=== PATIENT | female | born 1955 | race Caucasian/White ===

== ENCOUNTER 2016-10-27 13:55 | Emergency (ER) | payer MEDICARE, MEDICAID ==
[2016-10-27 14:16] VITALS: BP 132/59
--- NOTE | 2016-10-27 14:41 | EDM.PDOC ---
ED HPI GENERAL MEDICAL PROBLEM - General Chief Complaint: ENT Problem Stated Complaint: TROUBLE SWALLOWING Time Seen by Provider: 10/27/16 14:25 Source of Information: Reports: Patient History Limitations: Reports: No Limitations - History of Present Illness INITIAL COMMENTS - FREE TEXT/NARRATIVE: Patient is a 61-year-old female who presents to ED complaining of swallowing issues. Patient states over the past month she's been having increasing difficulty with swallowing air and fluids. Patient was evaluated in the walk in clinic this past Sunday with appointment scheduled to see PCP the following day. Patient missed this appointment and it was rescheduled for this coming Sunday. They are to discuss scheduling EGD to further delineate cause of difficulty swallowing. Patient does have a history of acid reflux and smoking. Patient takes Prilosec for the acid reflux and denies any increase in symptoms. Patient states while residing in [place] approximately one year ago she was being evaluated for similar complaint. They were planning on having the EGD completed but patient moved to [place] to reside with her daughter. With moving to [place] she has been seeing a pain specialist for cervical and lumbar stenosis. Patient is concerned that the difficulty swallowing may be associated to the cervical stenosis. Daughter states symptoms come on while patient is lying in bed in the room by herself. Patient works herself up by thinking of potential causes. Symptoms quickly resolved with sitting or lying down and speaking with her daughter. Patient has a history of anxiety/ depression and mild/moderate Alzheimer's disease. She takes for valium occasionally for anxiety symptoms. Patient denies any chest pain, shortness of breath, vomiting, nausea, abdominal pain, fever/chills, or any additional contributing symptoms. - Related Data Allergies Allergy/AdvReac Type Severity Reaction Status Date / Time Penicillins Allergy Severe Anaphylactic Verified 10/27/16 14:17 Shock codeine Allergy Itching Verified 10/27/16 14:17 Past Medical History HEENT History: Reports: Other (See Below) Other HEENT History: allergic rhinitis Respiratory History: Reports: COPD, Other (See Below) Other Respiratory History: abnormal chest x-ray Neurological History: Reports: Alzheimers Disease Psychiatric History: Reports: Anxiety, Depression Social & Family History - Tobacco Use Smoking Status *Q: Current Every Day Smoker Years of Tobacco use: 40 Packs/Tins Daily: 0.3 - Caffeine Use Caffeine Use: Reports: Coffee - Recreational Drug Use Recreational Drug Use: No ED ROS ENT - Review of Systems Review Of Systems: See Below Constitutional: Denies: Fever, Chills, Decreased Appetite HEENT: Reports: Other (diffuculty swallowing). Denies: Throat Pain, Throat Swelling Respiratory: Denies: Shortness of Breath, Wheezing, Cough, Sputum, Hemoptysis Cardiovascular: Denies: Chest Pain, Palpitations GI/Abdominal: Denies: Abdominal Pain, Decreased Appetite, Hematemesis, Nausea, Vomiting Musculoskeletal: Reports: Neck Pain Neurological: Reports: No Symptoms ED EXAM, ENT - Physical Exam Exam: See Below Exam Limited By: No Limitations General Appearance: Alert, WD/WN, No Apparent Distress Ears: Hearing Grossly Normal Nose: Normal Inspection Mouth/Throat: Normal Inspection, Normal Oropharynx, Other (mildly dry mouth) Neck: Normal Inspection, Supple, Non-Tender, Full Range of Motion. No: Lymphadenopathy (L), Lymphadenopathy (R) Respiratory/Chest: No Respiratory Distress, Lungs Clear, Normal Breath Sounds, No Accessory Muscle Use Cardiovascular: Normal Peripheral Pulses, Regular Rate, Rhythm GI/Abdominal: Normal Bowel Sounds, Soft, Non-Tender Neurological: Alert, Oriented, CN II-XII Intact, Normal Cognition, No Motor/ Sensory Deficits Psychiatric: Normal Affect, Normal Mood Skin: Warm, Dry, Intact, Normal Color Course - Vital Signs Last Recorded V/S: Last Vital Signs Temp 98.7 F 10/27/16 14:10 Pulse 72 10/27/16 14:10 Resp 18 10/27/16 14:10 BP 132/59 L 10/27/16 14:10 Pulse Ox 93 L 10/27/16 14:10 - Re-Assessments/Exams Free Text/Narrative Re-Assessment/Exam: Suspect cause of these symptoms are associated with dry mouth and anxiety/ depression. Symptoms worsen once patient is by herself in a dark room with deciphering potential etiology. Symptoms quickly resolve when she speaks with daughter and relaxes. Suggest further evaluation for EGD with history of acid reflux and smoking. Patient and daughter are aware of this and agreed with plan to followup with PCP this coming Sunday to schedule EGD. Patient is drinking water while in the ED and has been able to swallow with no difficulties. Vital signs are stable. patient is not anxious. Patient discharged home with instructions as documented. Departure - Departure Time of Disposition: 14:50 Disposition: Home, Self-Care 01 Condition: good Clinical Impression: Anxiety Alzheimer's dementia Qualifiers: Alzheimer's disease onset: early-onset Dementia behavioral disturbance: without behavioral disturbance Qualified Code(s): G30.0 - Alzheimer's disease with early onset Difficulty in swallowing Qualifiers: Dysphagia type: unspecified Qualified Code(s): R13.10 - Dysphagia, unspecified - Discharge Information Referrals: Misty Cardona DO [Primary Care Provider] - Forms: ED Department Discharge Additional Instructions: As discussed suspect cause of sensation of having difficulty swallowing is related to anxiety and working yourself up. Continue taking all home medications as prescribed. You have a history of acid reflux and smoking. EGD is suggested to determine if there are any physical finding contributing to your difficulty swallowing. In addition your mouth was dry upon examination. Suggest sipping on water regularly throughout the day to keep oral mucosa moist. This will help with swallowing food. keep your appointment with PCP for this coming Sunday to schedule EGD to further delineate etiology. Return back to the ED for any new or worsening symptoms.
== END 2016-10-27 15:07 | disposition home or self-care (01) ==
LOC: JD.ED 13:55
DX: R13.10 Dysphagia, unspecified (principal); G30.0 Alzheimer's disease with early onset; F41.9 Anxiety disorder, unspecified; F17.210 Nicotine dependence, cigarettes, uncomplicated; Z88.5 Allergy status to narcotic agent; Z88.0 Allergy status to penicillin
CPT/HCPCS: 99283; 99284

== ENCOUNTER 2018-03-19 18:00 | Emergency (ER) | payer MEDICARE, MEDICAID ==
[2018-03-19 18:06] VITALS: BP 151/66
--- NOTE | 2018-03-19 18:39 | EDM.PDOC ---
<Svitlana Howard A - Last Filed: 03/19/18 22:37> ED HPI GENERAL MEDICAL PROBLEM - General Chief Complaint: General Stated Complaint: [facility] Time Seen by Provider: 03/19/18 18:11 - Related Data Allergies Allergy/AdvReac Type Severity Reaction Status Date / Time Penicillins Allergy Severe Anaphylactic Verified 10/27/16 14:17 Shock codeine Allergy Itching Verified 10/27/16 14:17 Home Meds: Home Meds Albuterol [Ventolin HFA] 2 puff INH Q4HR 03/19/18 [History] Divalproex Sodium [Depakote] 2 tab PO ASDIRECTED 03/19/18 [History] Fluticasone/Salmeterol [Advair 100-50] 1 puff PO BID 03/19/18 [History] Gabapentin [Neurontin] 1 tab PO TID 03/19/18 [History] Lactulose 30 ml PO TIDPC 03/19/18 [History] Lisinopril 1 tab PO DAILY 03/19/18 [History] Lubiprostone [Amitiza] 1 cap PO BIDMEALS 03/19/18 [History] Lurasidone HCl [Latuda] 0.5 tab PO DAILY 03/19/18 [History] Memantine [Namenda] 1 tab PO BID 03/19/18 [History] Mirtazapine [Remeron] 1 tab PO BEDTIME PRN 03/19/18 [History] Morphine [MS Contin] 1 tab PO BID 03/19/18 [History] Omeprazole 2 tab PO BID 03/19/18 [History] Oxybutynin 1 tab PO TID 03/19/18 [History] Oxymorphone HCl [Oxymorphone] 1 tab PO BID 03/19/18 [History] Sennosides/Docusate Sodium [Senna-S] 2 tab PO BEDTIME 03/19/18 [History] Sucralfate 1 tab PO BID 03/19/18 [History] Temazepam 1 cap PO BEDTIME PRN 03/19/18 [History] buPROPion [buPROPion XL] 1 tab PO BID 03/19/18 [History] hydrOXYzine HCl [hydrOXYzine] 1 tab PO QID PRN 03/19/18 [History] risperiDONE [Risperdal] 1 tab PO BID 03/19/18 [History] tiZANidine [Zanaflex] 1 tab PO TID 03/19/18 [History] Course - Vital Signs Last Recorded V/S: Last Vital Signs Temp 36.2 C 03/19/18 18:03 Pulse 82 03/19/18 18:03 Resp 16 03/19/18 18:03 BP 151/66 H 03/19/18 18:03 Pulse Ox 89 L 03/19/18 18:03 - Orders/Labs/Meds Labs: Laboratory Tests 03/19/18 03/19/18 03/19/18 Range/Units 18:55 19:08 19:08 WBC 10.94 H (3.98-10.04) K/mm3 RBC 4.90 (3.98-5.22) M/mm3 Hgb 14.3 (11.2-15.7) gm/L Hct 41.9 (34.1-44.9) % MCV 85.5 (79.4-94.8) fl MCH 29.2 (25.6-32.2) pg MCHC 34.1 (32.2-35.5) g/dl RDW Std Deviation 39.1 (36.4-46.3) fL Plt Count 182 (182-369) K/mm3 MPV 9.4 (9.4-12.3) fl Neutrophils % (Manual) 80 H (40-60) % Band Neutrophils % 0 (0-10) % Lymphocytes % (Manual) 19 L (20-40) % Atypical Lymphs % 0 % Monocytes % (Manual) 1 L (2-10) % Eosinophils % (Manual) 0 L (0.7-5.8) % Basophils % (Manual) 0 L (0.1-1.2) Toxic Granulation Moderate Platelet Estimate Adequate Plt Morphology Comment Normal RBC Morph Comment Normal D-Dimer, Quantitative 0.88 H (0.19-0.50) mg/L Puncture Site Rt radial ABG pH 7.43 (7.35-7.45) ABG pCO2 47.8 H (35.0-45.0) mmHg ABG pO2 63.0 L (80.0-100.0) mmHg ABG HCO3 31.3 H (22.0-26.0) meq/L ABG O2 Saturation 88.6 L (96.0-97.0) % ABG Base Excess 6.3 H (-2-2.0) Martinez Test Positive A-a Gradient 11 mmHg O2 Delivery Device Room air FiO2 21.00 (21.00-100.00) % Sodium (136-145) mEq/L Potassium (3.5-5.1) mEq/L Chloride (98-107) mEq/L Carbon Dioxide (21-32) mEq/L Anion Gap (5-15) BUN (7-18) mg/dL Creatinine (0.55-1.02) mg/dL Est Cr Clr Drug Dosing mL/min Estimated GFR (MDRD) (>60) mL/min BUN/Creatinine Ratio (14-18) Glucose (80-115) mg/dL Lactic Acid (0.4-2.0) mmol/L Calcium (8.5-10.1) mg/dL Total Bilirubin (0.2-1.0) mg/dL AST (15-37) U/L ALT (14-59) U/L Alkaline Phosphatase (46-116) U/L Troponin I (0.00-0.056) ng/mL Total Protein (6.4-8.2) g/dl Albumin (3.4-5.0) g/dl Globulin gm/dL Albumin/Globulin Ratio (1-2) 03/19/18 03/19/18 Range/Units 19:08 19:08 WBC (3.98-10.04) K/mm3 RBC (3.98-5.22) M/mm3 Hgb (11.2-15.7) gm/L Hct (34.1-44.9) % MCV (79.4-94.8) fl MCH (25.6-32.2) pg MCHC (32.2-35.5) g/dl RDW Std Deviation (36.4-46.3) fL Plt Count (182-369) K/mm3 MPV (9.4-12.3) fl Neutrophils % (Manual) (40-60) % Band Neutrophils % (0-10) % Lymphocytes % (Manual) (20-40) % Atypical Lymphs % % Monocytes % (Manual) (2-10) % Eosinophils % (Manual) (0.7-5.8) % Basophils % (Manual) (0.1-1.2) Toxic Granulation Platelet Estimate Plt Morphology Comment RBC Morph Comment D-Dimer, Quantitative (0.19-0.50) mg/L Puncture Site ABG pH (7.35-7.45) ABG pCO2 (35.0-45.0) mmHg ABG pO2 (80.0-100.0) mmHg ABG HCO3 (22.0-26.0) meq/L ABG O2 Saturation (96.0-97.0) % ABG Base Excess (-2-2.0) Martinez Test A-a Gradient mmHg O2 Delivery Device FiO2 (21.00-100.00) % Sodium 129 L (136-145) mEq/L Potassium 3.9 (3.5-5.1) mEq/L Chloride 92 L (98-107) mEq/L Carbon Dioxide 31 (21-32) mEq/L Anion Gap 9.9 (5-15) BUN 9 (7-18) mg/dL Creatinine 0.7 (0.55-1.02) mg/dL Est Cr Clr Drug Dosing 74.02 mL/min Estimated GFR (MDRD) > 60 (>60) mL/min BUN/Creatinine Ratio 12.9 L (14-18) Glucose 115 (80-115) mg/dL Lactic Acid 0.8 (0.4-2.0) mmol/L Calcium 9.1 (8.5-10.1) mg/dL Total Bilirubin 0.2 (0.2-1.0) mg/dL AST 22 (15-37) U/L ALT 21 (14-59) U/L Alkaline Phosphatase 103 (46-116) U/L Troponin I < 0.017 (0.00-0.056) ng/mL Total Protein 7.3 (6.4-8.2) g/dl Albumin 3.2 L (3.4-5.0) g/dl Globulin 4.1 gm/dL Albumin/Globulin Ratio 0.8 L (1-2) Meds: Medications Discontinued Medications Generic Name Dose Route Start Last Admin Trade Name Freq PRN Reason Stop Dose Admin Sodium Chloride 250 mls @ 75 mls/hr 03/19/18 20:30 03/19/18 20:44 Normal Saline IV 75 mls/hr ASDIRECTED MEE Administration Iopamidol 100 ml 03/19/18 20:22 03/19/18 20:44 Isovue-370 (76%) IVPUSH 03/19/18 20:23 100 ml ONETIME ONE Administration Ondansetron HCl 4 mg 03/19/18 18:43 03/19/18 18:51 Zofran IVPUSH 03/19/18 18:44 4 mg ONETIME ONE Administration - Re-Assessments/Exams Free Text/Narrative Re-Assessment/Exam: 03/19/18 21:45 EKg shows no sign of acute arrhythmia or ischemia. CT chest shows stable pulmonary nodules, unchanged linear pleural-based opacities, no PE. She has been stable throughout her 3+ hour ED stay with no evidence of arrhythmia on the monitor. Her labs are unremarkable. She would like to go home. Will dc, discussed return precautions. Departure - Departure Time of Disposition: 21:43 Disposition: Home, Self-Care 01 Clinical Impression: Palpitations - Discharge Information Instructions: Palpitations, [id number] Referrals: PCP,None [Primary Care Provider] - Forms: ED Department Discharge Additional Instructions: 1. Your testing in the Emergency Department including labs, EKG, and chest CT scan all looked good 2. Follow up with your primary doctor as soon as possible 3. Return to the ED as needed for any concerning symptoms, such as difficulty breathing, severe pain, or other concerning symptoms. <Quique Price - Last Filed: 03/22/18 07:41> ED HPI GENERAL MEDICAL PROBLEM - General Source of Information: Reports: Patient, RN Notes Reviewed History Limitations: Reports: No Limitations - History of Present Illness INITIAL COMMENTS - FREE TEXT/NARRATIVE: The patient states that she developed palpitations - the sensation that her heart was speeding up and slowing down, not skipping or extra beats, around 16: 30 this afternoon. She had associated nausea, but denies feeling dyspneic. She states that she took her oxymorphone, but it didn't help. She called her daughter, who told her that she was likely having a panic attack. The patient called EMS anyway. The patient states that she has a history of palpitations, and they have been evaluated with such modalities as a Holter monitor, but no diagnosis was made. The patient denies feeling palpitations here in the ED, and the ECG obtained by EMS does not show any irregularity, either. The patient has a history of COPD, but denies recent wheezing. No recent fever or cough. No recent urinary symptoms. The patient's PCP is Dr. Jacinda Ozuna. The patient states that she saw Dr. Ozuna today. Neck Pain Score (Numeric/FACES): 7 Past Medical History HEENT History: Reports: Allergic Rhinitis Cardiovascular History: Reports: Hypertension Respiratory History: Reports: COPD Gastrointestinal History: Reports: GERD Genitourinary History: Reports: Urinary 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 (stress incontinence) Musculoskeletal History: Reports: Other (See Below) (Cervical and lumbar stenosis) Neurological History: Reports: Alzheimers Disease, Neuropathy, Peripheral Psychiatric History: Reports: Anxiety, Bipolar, Depression Endocrine/Metabolic History: Reports: Obesity/BMI 30+ - Infectious Disease History Infectious Disease History: Reports: Chicken Pox - Past Surgical History HEENT Surgical History: Reports: Oral Surgery (wisdom teeth extraction) Musculoskeletal Surgical History: Reports: ORIF (Left ankle), Shoulder Surgery ( right, arthroscopic) Social & Family History - Family History Family Medical History: Noncontributory - Tobacco Use Smoking Status *Q: Former Smoker Years of Tobacco use: 33 Packs/Tins Daily: 1 Month/Year Tobacco Last Used: Quit Mar 05, 2018 - Caffeine Use Caffeine Use: Reports: Coffee - Alcohol Use Alcohol Use History: No - Recreational Drug Use Recreational Drug Use: No - Living Situation & Occupation Living situation: Reports: , Alone Occupation: Disabled ED ROS GENERAL - Review of Systems Review Of Systems: ROS reveals no pertinent complaints other than HPI. ED EXAM, GENERAL - Physical Exam Exam: See Below Exam Limited By: No Limitations General Appearance: Alert, WD/WN, Anxious Eye Exam: Bilateral Eye: EOMI, Normal Inspection Ears: Normal External Exam, Hearing Grossly Normal Nose: Normal Inspection Throat/Mouth: Normal Inspection, Normal Lips, Normal Voice, No Airway Compromise Head: Atraumatic, Normocephalic Neck: Normal Inspection, Full Range of Motion Respiratory/Chest: No Respiratory Distress, No Accessory Muscle Use, Decreased Breath Sounds. No: Crackles, Rhonchi, Wheezing, Prolonged Expiration Cardiovascular: Normal Peripheral Pulses, Regular Rate, Rhythm, No Gallop, No JVD, No Murmur, No Rub Peripheral Pulses: 4+: Radial (L), Radial (R) GI/Abdominal: Normal Bowel Sounds, Soft, Non-Tender, No Organomegaly, No Distention, No Abnormal Bruit, No Mass, Other (Obese) (Female) Exam: Deferred Rectal (Female) Exam: Deferred Extremities: Normal Inspection, Normal Range of Motion, Normal Capillary Refill , Other (2-3+ pittting pretibial edema bilaterally) Neurological: Alert, Oriented, No Motor/Sensory Deficits, Memory Loss Recent Events (mild, but able to probide a good history) Psychiatric: Anxious (VERY) Skin Exam: Warm, Dry, Intact, Normal Color, No Rash EKG INTERPRETATION EKG Date: 03/19/18 Time: 18:07 Rhythm: NSR Rate (Beats/Min): 81 [place]: Normal P-Wave: Enlarged (LAE) QRS: Normal ST-T: Normal QT: Normal Comparison: NA - No Prior EKG Course - Orders/Labs/Meds Labs: Laboratory Tests 03/19/18 03/19/18 03/19/18 Range/Units 18:55 19:08 19:08 WBC 10.94 H (3.98-10.04) K/mm3 RBC 4.90 (3.98-5.22) M/mm3 Hgb 14.3 (11.2-15.7) gm/L Hct 41.9 (34.1-44.9) % MCV 85.5 (79.4-94.8) fl MCH 29.2 (25.6-32.2) pg MCHC 34.1 (32.2-35.5) g/dl RDW Std Deviation 39.1 (36.4-46.3) fL Plt Count 182 (182-369) K/mm3 MPV 9.4 (9.4-12.3) fl Neutrophils % (Manual) 80 H (40-60) % Band Neutrophils % 0 (0-10) % Lymphocytes % (Manual) 19 L (20-40) % Atypical Lymphs % 0 % Monocytes % (Manual) 1 L (2-10) % Eosinophils % (Manual) 0 L (0.7-5.8) % Basophils % (Manual) 0 L (0.1-1.2) Toxic Granulation Moderate Platelet Estimate Adequate Plt Morphology Comment Normal RBC Morph Comment Normal D-Dimer, Quantitative 0.88 H (0.19-0.50) mg/L Puncture Site Rt radial ABG pH 7.43 (7.35-7.45) ABG pCO2 47.8 H (35.0-45.0) mmHg ABG pO2 63.0 L (80.0-100.0) mmHg ABG HCO3 31.3 H (22.0-26.0) meq/L ABG O2 Saturation 88.6 L (96.0-97.0) % ABG Base Excess 6.3 H (-2-2.0) Martinez Test Positive A-a Gradient 11 mmHg O2 Delivery Device Room air FiO2 21.00 (21.00-100.00) % Sodium (136-145) mEq/L Potassium (3.5-5.1) mEq/L Chloride (98-107) mEq/L Carbon Dioxide (21-32) mEq/L Anion Gap (5-15) BUN (7-18) mg/dL Creatinine (0.55-1.02) mg/dL Est Cr Clr Drug Dosing mL/min Estimated GFR (MDRD) (>60) mL/min BUN/Creatinine Ratio (14-18) Glucose (80-115) mg/dL Lactic Acid (0.4-2.0) mmol/L Calcium (8.5-10.1) mg/dL Total Bilirubin (0.2-1.0) mg/dL AST (15-37) U/L ALT (14-59) U/L Alkaline Phosphatase (46-116) U/L Troponin I (0.00-0.056) ng/mL Total Protein (6.4-8.2) g/dl Albumin (3.4-5.0) g/dl Globulin gm/dL Albumin/Globulin Ratio (1-2) 03/19/18 03/19/18 Range/Units 19:08 19:08 WBC (3.98-10.04) K/mm3 RBC (3.98-5.22) M/mm3 Hgb (11.2-15.7) gm/L Hct (34.1-44.9) % MCV (79.4-94.8) fl MCH (25.6-32.2) pg MCHC (32.2-35.5) g/dl RDW Std Deviation (36.4-46.3) fL Plt Count (182-369) K/mm3 MPV (9.4-12.3) fl Neutrophils % (Manual) (40-60) % Band Neutrophils % (0-10) % Lymphocytes % (Manual) (20-40) % Atypical Lymphs % % Monocytes % (Manual) (2-10) % Eosinophils % (Manual) (0.7-5.8) % Basophils % (Manual) (0.1-1.2) Toxic Granulation Platelet Estimate Plt Morphology Comment RBC Morph Comment D-Dimer, Quantitative (0.19-0.50) mg/L Puncture Site ABG pH (7.35-7.45) ABG pCO2 (35.0-45.0) mmHg ABG pO2 (80.0-100.0) mmHg ABG HCO3 (22.0-26.0) meq/L ABG O2 Saturation (96.0-97.0) % ABG Base Excess (-2-2.0) Martinez Test A-a Gradient mmHg O2 Delivery Device FiO2 (21.00-100.00) % Sodium 129 L (136-145) mEq/L Potassium 3.9 (3.5-5.1) mEq/L Chloride 92 L (98-107) mEq/L Carbon Dioxide 31 (21-32) mEq/L Anion Gap 9.9 (5-15) BUN 9 (7-18) mg/dL Creatinine 0.7 (0.55-1.02) mg/dL Est Cr Clr Drug Dosing 74.02 mL/min Estimated GFR (MDRD) > 60 (>60) mL/min BUN/Creatinine Ratio 12.9 L (14-18) Glucose 115 (80-115) mg/dL Lactic Acid 0.8 (0.4-2.0) mmol/L Calcium 9.1 (8.5-10.1) mg/dL Total Bilirubin 0.2 (0.2-1.0) mg/dL AST 22 (15-37) U/L ALT 21 (14-59) U/L Alkaline Phosphatase 103 (46-116) U/L Troponin I < 0.017 (0.00-0.056) ng/mL Total Protein 7.3 (6.4-8.2) g/dl Albumin 3.2 L (3.4-5.0) g/dl Globulin 4.1 gm/dL Albumin/Globulin Ratio 0.8 L (1-2) Meds: Medications Discontinued Medications Generic Name Dose Route Start Last Admin Trade Name Freq PRN Reason Stop Dose Admin Sodium Chloride 250 mls @ 75 mls/hr 03/19/18 20:30 03/19/18 20:44 Normal Saline IV 75 mls/hr ASDIRECTED MEE Administration Iopamidol 100 ml 03/19/18 20:22 03/19/18 20:44 Isovue-370 (76%) IVPUSH 03/19/18 20:23 100 ml ONETIME ONE Administration Ondansetron HCl 4 mg 03/19/18 18:43 03/19/18 18:51 Zofran IVPUSH 03/19/18 18:44 4 mg ONETIME ONE Administration - Re-Assessments/Exams Free Text/Narrative Re-Assessment/Exam: 03/19/18 18:37 The patient was likely suffering from an anxiety attack related to her chronic pain, however, here in the ED her SpO2 is 89% on room air. This is likely related to her COPD, however, the patient is not ordinarily on supplemental oxygen. I would like to make sure that there is no significant other problem contributing to the patient's palpitations, such as a PE. I have ordered blood work, that includes 2 sets of blood cultures and an ABG, along with a chest x- ray. 03/19/18 19:[address] Svitlana Howard, and care of the patient turned over to her at this time, for change of shift.
[2018-03-19] MEDS ORDERED: Ondansetron 4 MG/2 ML SDV IVPUSH ONE (18:43)
[2018-03-19] MEDS ORDERED: Iopamidol 755 Mg/ML 100 ML Bottle IVPUSH ONE (20:22)
[2018-03-19] MEDS ORDERED: Sodium Chloride 0.9% 250 ML IV SCH (20:30)
--- NOTE | 2018-03-20 07:45 | CT ---
CT chest Technique: Multiple axial sections through the chest were obtained. Intravenous contrast was utilized. Study has been performed as a pulmonary angiogram protocol. Comparison: Prior chest CT exam of 04/12/16. Findings: Pulmonary arteries are moderately well-opacified. No filling defects are seen to indicate pulmonary embolism. Small portion of the upper abdominal structures appear within normal limits. Mediastinum and hilar regions show no adenopathy or mass. No axillary adenopathy is seen. Thick linear densities which are pleural-based seen within the right upper and right middle lobe. These findings appear to represent scarring and appear stable from prior exam. Several scattered pulmonary nodules are noted which are felt to be stable. Small air bleb is noted within the left upper chest. No acute parenchymal change is seen. Bone window settings were reviewed which show diffuse degenerative change within the spine. No acute osseous abnormality is identified. Impression: 1. No findings of pulmonary embolism. 2. Other stable findings as noted above. Nothing acute is appreciated on CT study of the chest. Diagnostic code #2 I agree with preliminary report issued by [facility] ([facility] report finalized on 03/19/18, 10:39 PM Central Time)
--- NOTE | 2018-03-20 07:46 | CR ---
Chest: Two views of the chest were obtained. Comparison: Prior chest x-ray of 04/12/16. Chronic change is noted within the right lung base. No acute parenchymal change is seen. Heart size and mediastinum are normal. Bony structures appear within normal limits for the patient's age. Diaphragms are flattened on the lateral view compatible with emphysematous change. Impression: 1. Emphysematous change. 2. Chronic change within the right lung base. Nothing acute is appreciated. Diagnostic code #2
== END 2018-03-19 22:15 | disposition home or self-care (01) ==
LOC: JD.ED 18:00
DX: R00.2 Palpitations (principal); I10 Essential (primary) hypertension; J44.9 Chronic obstructive pulmonary disease, unspecified; K21.9 Gastro-esophageal reflux disease without esophagitis; Z87.891 Personal history of nicotine dependence; Z88.0 Allergy status to penicillin; Z88.5 Allergy status to narcotic agent; Z79.899 Other long term (current) drug therapy
CPT/HCPCS: 36415; 36600; 71046; 71275; 80053; 82803; 83605; 84484; 85007; 85027; 85379; 87040; 93005; 96374; 99285; J2405; J7050; Q9967

== ENCOUNTER 2018-07-20 19:07 | Emergency (ER) | payer MEDICARE, MEDICAID ==
[2018-07-20 19:15] VITALS: BP 179/76
[2018-07-20] MEDS ORDERED: Alum Hydrox/Mag Hydrox/Simeth 30 ML, Lidocaine 2% 15 ML PO ONE ×2 (19:59)
[2018-07-20] MEDS ORDERED: Sodium Chloride 0.9% 10 ML Syringe FLUSH PRN (19:59)
[2018-07-20] MEDS ORDERED: Pantoprazole 40 MG Vial IVPUSH ONE (19:59)
[2018-07-20] MEDS ORDERED: LORazepam 2 MG/ML SDV IVPUSH ONE (19:59)
--- NOTE | 2018-07-20 20:03 | EDM.PDOC ---
ED HPI GENERAL MEDICAL PROBLEM - General Chief Complaint: Gastrointestinal Problem Stated Complaint: [facility] Time Seen by Provider: 07/20/18 19:41 Source of Information: Reports: Patient History Limitations: Reports: No Limitations - History of Present Illness INITIAL COMMENTS - FREE TEXT/NARRATIVE: Patient is a 62-year-old female who presents ED complaining of left-sided abdominal pain for approximately one week. Patient is quite anxious and tearful during examination. States has a recent she's had some nausea and vomiting for the past 3 days. With eating she comes full early and becomes nauseated. She admits she has a history of constipation secondary to the chronic opiates. Currently taking. She takes lactulose every third day. She does not have a bowel movement for 3 days. Pain to the left upper quadrant/left side of the abdomen is sharp, constant, waxes and wanes with intensity, to also described as a crampy sensation. She states every time she eats she becomes full quickly and mildly nauseated. She has a history of acid reflux with no worsening symptoms as noted and is taking Protonix currently. Patient currently denies any fever, cough, chest pain, diarrhea, bloody stool, dark tarry stool, dysuria , hematuria, or any additional complaints. She does have a history of anxiety in the past been on multiple medications that had to be discontinued secondary to chronic opioid use. Currently her pains are rated a 5 out of 10. Patient is on pain meds for chronic neuropathy. She carries a history of hypertension, COPD , GERD, urinary incontinence, spinal canal stenosis, Alzheimer's, bipolar, anxiety, and depression. Left Upper Abdomen Pain Score (Numeric/FACES): 6 - Related Data Allergies Allergy/AdvReac Type Severity Reaction Status Date / Time Penicillins Allergy Severe Anaphylactic Verified 07/20/18 19:15 Shock codeine Allergy Itching Verified 07/20/18 19:15 Home Meds: Home Meds Albuterol [Ventolin HFA] 2 puff INH Q4HR 03/19/18 [History] Divalproex Sodium [Depakote] 2 tab PO ASDIRECTED 03/19/18 [History] Fluticasone/Salmeterol [Advair 100-50] 1 puff PO BID 03/19/18 [History] Gabapentin [Neurontin] 1 tab PO TID 03/19/18 [History] Lactulose 30 ml PO TIDPC 03/19/18 [History] Lisinopril 1 tab PO DAILY 03/19/18 [History] Lubiprostone [Amitiza] 1 cap PO BIDMEALS 03/19/18 [History] Lurasidone HCl [Latuda] 0.5 tab PO DAILY 03/19/18 [History] Memantine [Namenda] 1 tab PO BID 03/19/18 [History] Mirtazapine [Remeron] 1 tab PO BEDTIME PRN 03/19/18 [History] Morphine [MS Contin] 1 tab PO BID 03/19/18 [History] Oxymorphone HCl [Oxymorphone] 1 tab PO BID 03/19/18 [History] Sennosides/Docusate Sodium [Senna-S] 2 tab PO BEDTIME 03/19/18 [History] Sucralfate 1 tab PO BID 03/19/18 [History] Temazepam 1 cap PO BEDTIME PRN 03/19/18 [History] buPROPion [buPROPion XL] 1 tab PO DAILY 03/19/18 [History] hydrOXYzine HCl [hydrOXYzine] 1 tab PO QID PRN 03/19/18 [History] tiZANidine [Zanaflex] 1 tab PO TID 03/19/18 [History] Ondansetron [Zofran ODT] 4 mg PO Q6H PRN #12 tab.dis 07/20/18 [Rx] Pantoprazole [ProTONIX] 1 tab PO DAILY 07/20/18 [History] Rosuvastatin [Crestor] 1 tab PO BEDTIME 07/20/18 [History] Past Medical History HEENT History: Reports: Allergic Rhinitis Other HEENT History: allergic rhinitis Cardiovascular History: Reports: Hypertension Respiratory History: Reports: COPD Other Respiratory History: abnormal chest x-ray Gastrointestinal History: Reports: GERD Genitourinary History: Reports: Urinary 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 Musculoskeletal History: Reports: Other (See Below) Other Musculoskeletal History: spinal stenosis Neurological History: Reports: Alzheimers Disease, Neuropathy, Peripheral Psychiatric History: Reports: Anxiety, Bipolar, Depression Endocrine/Metabolic History: Reports: Obesity/BMI 30+ - Infectious Disease History Infectious Disease History: Reports: Chicken Pox - Past Surgical History HEENT Surgical History: Reports: Oral Surgery Musculoskeletal Surgical History: Reports: ORIF, Shoulder Surgery Social & Family History - Family History Family Medical History: Noncontributory - Tobacco Use Smoking Status *Q: Current Every Day Smoker Years of Tobacco use: 36 Packs/Tins Daily: 0.5 Used Tobacco, but Quit: No - Caffeine Use Caffeine Use: Reports: Coffee - Recreational Drug Use Recreational Drug Use: No - Living Situation & Occupation Living situation: Reports: , Alone Occupation: Disabled ED ROS GENERAL - Review of Systems Review Of Systems: ROS reveals no pertinent complaints other than HPI. ED EXAM, GI/ABD - Physical Exam Exam: See Below Exam Limited By: No Limitations General Appearance: Alert, WD/WN, Anxious, Mild Distress Eyes: Bilateral: Normal Appearance Ears: Hearing Grossly Normal Nose: Normal Inspection Throat/Mouth: Normal Voice, No Airway Compromise Head: Atraumatic, Normocephalic Neck: Normal Inspection, Supple Respiratory/Chest: No Respiratory Distress, Lungs Clear, Normal Breath Sounds, No Accessory Muscle Use, Chest Non-Tender Cardiovascular: Normal Peripheral Pulses, Regular Rate, Rhythm, No Murmur GI/Abdominal Exam: Soft, No Organomegaly, No Distention, Tender (epigastric region), Abnormal Bowel Sounds (hyperactive), Other (negative seo sign, negative mcburneys point. ) Back Exam: Normal Inspection. No: CVA Tenderness (L), CVA Tenderness (R) Extremities: Normal Inspection, Normal Range of Motion, Non-Tender, No Pedal Edema Neurological: Alert, Oriented, CN II-XII Intact, Normal Cognition Psychiatric: Anxious, Tearful Course - Vital Signs Last Recorded V/S: Last Vital Signs Temp 97 F 07/20/18 19:10 Pulse 94 07/20/18 19:10 Resp 20 07/20/18 19:10 BP 179/76 H 07/20/18 19:10 Pulse Ox 94 L 07/20/18 19:10 - Orders/Labs/Meds Labs: Laboratory Tests 07/20/18 07/20/18 07/20/18 Range/Units 19:35 20:17 20:17 WBC 11.11 H (3.98-10.04) K/mm3 RBC 5.62 H (3.98-5.22) M/mm3 Hgb 16.4 H (11.2-15.7) gm/L Hct 48.0 H (34.1-44.9) % MCV 85.4 (79.4-94.8) fl MCH 29.2 (25.6-32.2) pg MCHC 34.2 (32.2-35.5) g/dl RDW Std Deviation 42.0 (36.4-46.3) fL Plt Count 241 (182-369) K/mm3 MPV 9.8 (9.4-12.3) fl Neutrophils % (Manual) 64 H (40-60) % Band Neutrophils % 0 (0-10) % Lymphocytes % (Manual) 35 (20-40) % Atypical Lymphs % 0 % Monocytes % (Manual) 0 L (2-10) % Eosinophils % (Manual) 1 (0.7-5.8) % Basophils % (Manual) 0 L (0.1-1.2) Platelet Estimate Adequate Plt Morphology Comment Normal RBC Morph Comment Normal Sodium 132 L (136-145) mEq/L Potassium 4.2 (3.5-5.1) mEq/L Chloride 94 L (98-107) mEq/L Carbon Dioxide 33 H (21-32) mEq/L Anion Gap 9.2 (5-15) BUN 15 (7-18) mg/dL Creatinine 0.6 (0.55-1.02) mg/dL Est Cr Clr Drug Dosing 86.36 mL/min Estimated GFR (MDRD) > 60 (>60) mL/min BUN/Creatinine Ratio 25.0 H (14-18) Glucose 109 (80-115) mg/dL Calcium 9.6 (8.5-10.1) mg/dL Total Bilirubin 0.2 (0.2-1.0) mg/dL AST 14 L (15-37) U/L ALT 22 (14-59) U/L Alkaline Phosphatase 122 H (46-116) U/L C-Reactive Protein 0.2 (<1.0) mg/dL Total Protein 7.4 (6.4-8.2) g/dl Albumin 3.4 (3.4-5.0) g/dl Globulin 4.0 gm/dL Albumin/Globulin Ratio 0.9 L (1-2) Lipase 72 L (73-393) U/L Urine Color Light yellow (Yellow) Urine Appearance Clear (Clear) Urine pH 7.5 (5.0-8.0) Ur Specific [place] 1.020 (1.005-1.030) Urine Protein 1+ H (Negative) Urine Glucose (UA) Negative (Negative) Urine Ketones Negative (Negative) Urine Occult Blood Negative (Negative) Urine Nitrite Negative (Negative) Urine Bilirubin Negative (Negative) Urine Urobilinogen 0.2 (0.2-1.0) Ur Leukocyte Esterase Negative (Negative) Urine RBC Not seen (0-5) /hpf Urine WBC 0-5 (0-5) /hpf Ur Epithelial Cells 10-20 H (0-5) /hpf Urine Bacteria Few (FEW) /hpf Urine Mucus Not seen (FEW) /hpf Meds: Medications Discontinued Medications Generic Name Dose Route Start Last Admin Trade Name Freq PRN Reason Stop Dose Admin Al Hydroxide/Mg Hydroxide 30 0 ml 07/20/18 19:59 07/20/18 20:18 ml/ Lidocaine HCl 15 ml PO 07/20/18 20:00 45 ml ONETIME ONE Administration Lorazepam 0.5 mg 07/20/18 19:59 07/20/18 20:18 Ativan IVPUSH 07/20/18 20:00 0.5 mg ONETIME ONE Administration Pantoprazole Sodium 40 mg 07/20/18 19:59 07/20/18 20:18 Protonix Iv IVPUSH 07/20/18 20:00 40 mg ONETIME ONE Administration Sodium Chloride 10 ml 07/20/18 19:59 07/20/18 20:19 Saline Flush FLUSH 10 ml ASDIRECTED PRN Administration Keep Vein Open - Re-Assessments/Exams Free Text/Narrative Re-Assessment/Exam: IV established with ativan 0.5 mg IVP, protonix 40mg IVP, and GI cocktail PO. Initial labs and studies will include: CBC, C14, CRP, UA, abdomen 2 view, and lipase. Labs reviewed: White blood cell count 11.11, hemoglobin 16.4, platelets normal, sodium 132, potassium 4.2, AG and creatinine within normal limits. Lipase 72. UA negative. Reviewed x-ray of the abdomen two view. Increased stool with a few airfluid levels. Final interpretation is pending. On reexamination patient is resting more comfortably. She offers no complaints this time. I offered to obtain CT of the abdomen and pelvis to which she refuses. I suspect cause of intermittent pain to stomach is related to gastritis induced by stress. In addition generalized pain to the abdomen, early satiety, and nausea is attributed to history of constipation 2nd to narcotic use. Patient has refused the CT of the abdomen and pelvis. She will take her lactulose tomorrow as scheduled and followup with PCP Sunday. She has a ride home. Return precautions were discussed with the patient. Patient had no further questions or concerns. Patient agreed with plan. Departure - Departure Time of Disposition: 22:06 Disposition: Home, Self-Care 01 Condition: Good Clinical Impression: Abdominal pain of unknown etiology, Abdominal pain, Constipation Gastritis Qualifiers: Gastritis type: unspecified gastritis Chronicity: acute Gastritis bleeding: presence of bleeding unspecified Qualified Code(s): K29.00 - Acute gastritis without bleeding Constipation Qualifiers: Constipation type: drug induced constipation Qualified Code(s): K59.03 - Drug induced constipation - Discharge Information Prescriptions: Ondansetron [Zofran ODT] 4 mg PO Q6H PRN #12 tab.dis PRN Reason: Nausea/Vomiting Instructions: Gastritis, Adult, [id number], Constipation, Adult, [id number] , Abdominal Pain, Adult, [id number] Referrals: PCP,None [Primary Care Provider] - Forms: ED Department Discharge Additional Instructions: Suspect cause of discomfort is related to constipation secondary to pain medications currently on. In addition suspect you have gastritis with recent increased stress, anxiety, and excessive worrying. Thus continue taking the Protonix and lactulose as prescribed. For intermittent nausea take Zofran as prescribed. Push the fluids. Eat a bland meal. See your PCP first part of this week for reevaluation as needed. Suggest making a earlier appt with psych provider for medication modification. May return back to the ED if you develop any new or worsening symptoms. No driving today since receiving a sedative medication.
--- NOTE | 2018-07-21 18:27 | CR ---
Abdomen: Supine and upright views of the abdomen were obtained. Comparison: Previous abdominal preliminary film obtained during upper GI and small bowel follow-through study of 03/11/18. Scattered gas is noted within small bowel and colon which appears unremarkable. Slight pleural thickening is noted within the right lung base. No free air is seen. Calcifications within the pelvis are compatible with phleboliths and slight arterial calcification. Bony structures are unremarkable. Impression: 1. Incidental findings. Nothing acute is seen on two-view abdominal x-ray. Diagnostic code #2
== END 2018-07-20 22:21 | disposition home or self-care (01) ==
LOC: JD.ED 19:07
DX: K29.00 Acute gastritis without bleeding (principal); K59.03 Drug induced constipation; F17.210 Nicotine dependence, cigarettes, uncomplicated; I10 Essential (primary) hypertension; K21.9 Gastro-esophageal reflux disease without esophagitis; F31.9 Bipolar disorder, unspecified; F41.9 Anxiety disorder, unspecified; J44.9 Chronic obstructive pulmonary disease, unspecified; Z79.899 Other long term (current) drug therapy; Z88.0 Allergy status to penicillin; Z88.5 Allergy status to narcotic agent
CPT/HCPCS: 36415; 74019; 80053; 81001; 83690; 85007; 85027; 86140; 96374; 96375; 99284; A9270; C9113; J2060; 99283

== ENCOUNTER 2020-02-11 09:23 | Emergency (ER) | payer MEDICARE, MEDICAID ==
[2020-02-11 09:36] VITALS: BP 164/67; PULSE 70
[2020-02-11] MEDS ORDERED: Sodium Chloride 0.9% 10 ML Syringe FLUSH PRN ×2 (09:47→09:53)
[2020-02-11] MEDS ORDERED: Ondansetron 4 MG/2 ML SDV IVPUSH ONE (09:47)
[2020-02-11] MEDS ORDERED: HYDROmorphone 1 MG/ML Syringe IVPUSH ONE (09:48)
[2020-02-11] MEDS ORDERED: Iopamidol 612 MG/ML 100 ML Bottle IVPUSH ONE (09:53)
[2020-02-11] MEDS ORDERED: Diatrizoate Meglumine/Diatrizoate Sodium 37% 120 ML Bottle PO ONE (09:53)
[2020-02-11] MEDS ORDERED: Sodium Chloride 0.9% 1,000 ML IV SCH (10:00)
--- NOTE | 2020-02-11 11:54 | CT ---
CT abdomen CT abdomen and pelvis Technique: Multiple axial sections were obtained from above the dome of the diaphragm inferiorly through the pubic symphysis. Intravenous and oral contrast was utilized. Delayed images were obtained through the bladder. Findings: Slight pleural thickening is noted within the right lung base. Minimal parenchymal scarring is noted within the right lung base. Nothing acute is seen within the lung bases. Liver contains no focal parenchymal abnormality. Spleen appears within normal limits. Adrenal glands show no nodule. Pancreas shows no discrete abnormality. Gallbladder contains no calcified gallstones. Kidneys show symmetric contrast enhancement without hydronephrosis or mass. Aorta shows no aneurysm. Atherosclerotic calcification is seen within the aorta. No retroperitoneal adenopathy or mesenteric abnormalities are seen. No pelvic mass or adenopathy is seen. No free fluid or inflammatory change is appreciated. Delayed images shows contrast within both distal ureters as well as contrast within the bladder. Bone window were reviewed which shows mild degenerative change scattered within the spine. Very small fat-containing umbilical hernia is noted. Impression: 1. Findings as noted above. 2. Nothing acute is appreciated on CT study of the abdomen and pelvis. Diagnostic code #2 This report was dictated in MDT
--- NOTE | 2020-02-11 12:43 | EDM.PDOC ---
ED HPI GENERAL MEDICAL PROBLEM - General Chief Complaint: Abdominal Pain Stated Complaint: LEFT SIDE ABD PAIN Time Seen by Provider: 02/11/20 09:34 Source of Information: Reports: Patient History Limitations: Reports: No Limitations - History of Present Illness INITIAL COMMENTS - FREE TEXT/NARRATIVE: The patient presents with left lower abdominal pain. This started yesterday. She has a history of spinal stenosis and back and neck pain. She takes pain meds. She does have trouble with constipation at times. She took some lactulose and had some loose stools. That did not help with the pain. She has no fever, chills, cough, congestion, runny nose, or dysuria. She still has her gallbladder and appendix. Onset: Gradual Duration: Day(s): (2) Location: Reports: Abdomen Quality: Reports: Sharp Severity: Severe Improves with: Reports: None Worsens with: Reports: None Associated Symptoms: Reports: No Other Symptoms Left Lower Abdomen Pain Score (Numeric/FACES): 9 - Related Data Allergies Allergy/AdvReac Type Severity Reaction Status Date / Time Penicillins Allergy Severe Anaphylactic Verified 02/11/20 09:36 Shock codeine Allergy Itching Verified 02/11/20 09:36 Home Meds: Home Meds Albuterol [Ventolin HFA] 2 puff INH Q4HR 03/19/18 [History] Fluticasone/Salmeterol [Advair 100-50] 1 puff PO BID 03/19/18 [History] Gabapentin [Neurontin] 800 tab PO QID 03/19/18 [History] Lactulose 30 ml PO ASDIRECTED 03/19/18 [History] Lisinopril 1 tab PO DAILY 03/19/18 [History] Lubiprostone [Amitiza] 1 cap PO BIDMEALS 03/19/18 [History] Memantine [Namenda] 1 tab PO BID 03/19/18 [History] Mirtazapine [Remeron] 22.5 tab PO BEDTIME PRN 03/19/18 [History] Morphine [MS Contin] 1 tab PO BID 03/19/18 [History] Oxymorphone HCl [Oxymorphone] 30 mg PO BID 03/19/18 [History] Sennosides/Docusate Sodium [Senna-S] 2 tab PO BEDTIME 03/19/18 [History] Temazepam 1 cap PO BEDTIME PRN 03/19/18 [History] tiZANidine [Zanaflex] 1 tab PO TID 03/19/18 [History] Pantoprazole [ProTONIX] 1 tab PO DAILY 07/20/18 [History] Rosuvastatin [Crestor] 1 tab PO BEDTIME 07/20/18 [History] Calcium Carbonate/Vitamin D3 [Calcium 1,000 + D3 Caplet] 1 tab PO BID 02/11/20 [History] Diclofenac Sodium [Voltaren 1% Gel] 1 applic TOP TID PRN 02/11/20 [History] Lurasidone [Latuda] 20 mg PO DAILY 02/11/20 [History] Past Medical History HEENT History: Reports: Allergic Rhinitis Other HEENT History: allergic rhinitis Cardiovascular History: Reports: High Cholesterol, Hypertension Respiratory History: Reports: COPD Other Respiratory History: abnormal chest x-ray, wears 3L O2 via NC Gastrointestinal History: Reports: GERD Genitourinary History: Reports: 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 [employer]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: Musculoskeletal History: Reports: Fracture, Other (See Below) Other Musculoskeletal History: spinal stenosis Neurological History: Reports: Alzheimers Disease, Neuropathy, Peripheral Psychiatric History: Reports: Anxiety, Bipolar, Depression Endocrine/Metabolic History: Reports: Obesity/BMI 30+ Hematologic History: Reports: None Immunologic History: Reports: None Oncologic (Cancer) History: Reports: None Dermatologic History: Reports: None - Infectious Disease History Infectious Disease History: Reports: None - Past Surgical History HEENT Surgical History: Reports: Oral Surgery Musculoskeletal Surgical History: Reports: ORIF, Shoulder Surgery, Other (See Below) Other Musculoskeletal Surgeries/Procedures:: Left Leg Surgery. Social & Family History - Family History Family Medical History: Noncontributory - Tobacco Use Smoking Status *Q: Current Some Day Smoker Years of Tobacco use: 40 Packs/Tins Daily: 0.1 - Caffeine Use Caffeine Use: Reports: Coffee - Recreational Drug Use Recreational Drug Use: No - Living Situation & Occupation Living situation: Reports: , Alone Occupation: Disabled ED ROS GENERAL - Review of Systems Review Of Systems: See Below Constitutional: Reports: No Symptoms HEENT: Reports: No Symptoms Respiratory: Reports: No Symptoms Cardiovascular: Reports: No Symptoms Endocrine: Reports: No Symptoms GI/Abdominal: Reports: Abdominal Pain. Denies: Diarrhea, Nausea, Vomiting : Reports: No Symptoms Musculoskeletal: Reports: No Symptoms ED EXAM, GI/ABD - Physical Exam Exam: See Below Exam Limited By: No Limitations General Appearance: Alert, No Apparent Distress Ears: Normal External Exam Nose: Normal Inspection Head: Atraumatic, Normocephalic Neck: Normal Inspection Respiratory/Chest: No Respiratory Distress, Lungs Clear, Normal Breath Sounds Cardiovascular: Regular Rate, Rhythm, No Edema, No Murmur GI/Abdominal Exam: Soft, No Organomegaly, No Mass, Tender (Moderate tenderness to the left lower abdomen) Course - Vital Signs Last Recorded V/S: Last Vital Signs Temp 98 F 02/11/20 09:31 Pulse 70 02/11/20 09:31 Resp 18 02/11/20 09:31 BP 164/67 H 02/11/20 09:31 Pulse Ox 95 02/11/20 09:31 - Orders/Labs/Meds Orders: Active Orders 24 hr Category Date Time Status Peripheral IV Care [RC] . DIRECTED Care 02/11/20 09:47 Active Sodium Chloride 0.9% [Normal Saline] 1,000 ml Med 02/11/20 10:00 Active IV ASDIRECTED Sodium Chloride 0.9% [Saline Flush] Med 02/11/20 09:47 Active 10 ml FLUSH ASDIRECTED PRN Sodium Chloride 0.9% [Saline Flush] Med 02/11/20 09:53 Active 10 ml FLUSH ONETIME PRN ED Antiemetic Medication Reflex [OM.PC] Stat Oth 02/11/20 09:47 Ordered Peripheral IV Insertion Adult [OM.PC] Stat Oth 02/11/20 09:47 Ordered Medication Orders Sodium Chloride (Normal Saline) 1,000 mls @ 125 mls/hr IV ASDIRECTED MEE Last Admin: 02/11/20 10:00 Dose: 125 mls/hr Documented by: TRINY Sodium Chloride (Saline Flush) 10 ml FLUSH ASDIRECTED PRN PRN Reason: Keep Vein Open Last Admin: 02/11/20 10:01 Dose: 10 ml Documented by: TRINY Sodium Chloride (Saline Flush) 10 ml FLUSH ONETIME PRN PRN Reason: IV FLUSH Last Admin: 02/11/20 11:30 Dose: 10 ml Documented by: SKY Labs: Laboratory Tests 02/11/20 02/11/2002/10/20 Range/Units 09:55 09:55 10:38 WBC 10.89 H (3.98-10.04) K/mm3 RBC 4.37 (3.98-5.22) M/mm3 Hgb 12.4 D (11.2-15.7) gm/dl Hct 39.1 (34.1-44.9) % MCV 89.5 D (79.4-94.8) fl MCH 28.4 (25.6-32.2) pg MCHC 31.7 L (32.2-35.5) g/dl RDW Std Deviation 41.9 (36.4-46.3) fL Plt Count 280 (182-369) K/mm3 MPV 10.0 (9.4-12.3) fl Neut % (Auto) 74.4 H (34.0-71.1) % Lymph % (Auto) 17.9 L (19.3-51.7) % [place] % (Auto) 7.0 (4.7-12.5) % Eos % (Auto) 0.4 L (0.7-5.8) Baso % (Auto) 0.2 (0.1-1.2) % Neut # (Auto) 8.11 H (1.56-6.13) K/mm3 Lymph # (Auto) 1.95 (1.18-3.74) K/mm3 [place] # (Auto) 0.76 H (0.24-0.36) K/mm3 Eos # (Auto) 0.04 (0.04-0.36) K/mm3 Baso # (Auto) 0.02 (0.01-0.08) K/mm3 Sodium 137 (136-145) mEq/L Potassium 4.1 (3.5-5.1) mEq/L Chloride 100 (98-107) mEq/L Carbon Dioxide 32 (21-32) mEq/L Anion Gap 9.1 (5-15) BUN 10 (7-18) mg/dL Creatinine 0.7 (0.55-1.02) mg/dL Est Cr Clr Drug Dosing 72.10 mL/min Estimated GFR (MDRD) > 60 (>60) mL/min BUN/Creatinine Ratio 14.3 (14-18) Glucose 128 H (80-115) mg/dL Calcium 9.1 (8.5-10.1) mg/dL Total Bilirubin 0.2 (0.2-1.0) mg/dL AST 19 (15-37) U/L ALT 31 (14-59) U/L Alkaline Phosphatase 153 H (46-116) U/L Total Protein 8.0 (6.4-8.2) g/dl Albumin 3.4 (3.4-5.0) g/dl Globulin 4.6 gm/dL Albumin/Globulin Ratio 0.7 L (1-2) Lipase 88 (73-393) U/L Urine Color Yellow (Yellow) Urine Appearance Clear (Clear) Urine pH 7.5 (5.0-8.0) Ur Specific [place] 1.015 (1.005-1.030) Urine Protein Negative (Negative) Urine Glucose (UA) Negative (Negative) Urine Ketones Negative (Negative) Urine Occult Blood Negative (Negative) Urine Nitrite Negative (Negative) Urine Bilirubin Negative (Negative) Urine Urobilinogen 0.2 (0.2-1.0) Ur Leukocyte Esterase Negative (Negative) Urine RBC 0-5 (0-5) /hpf Urine WBC 0-5 (0-5) /hpf Ur Squamous Epith Cells 0-5 (0-5) /hpf Urine Bacteria Few (FEW) /hpf Urine Mucus Few (FEW) /hpf Meds: Medications Generic Name Dose Route Start Last Admin Trade Name Rafyq PRN Reason Stop Dose Admin Sodium Chloride 1,000 mls @ 125 mls/hr 02/11/20 10:00 02/11/20 10:00 Normal Saline IV 125 mls/hr ASDIRECTED MEE Administration Sodium Chloride 10 ml 02/11/20 09:47 02/11/20 10:01 Saline Flush FLUSH 10 ml ASDIRECTED PRN Administration Keep Vein Open Sodium Chloride 10 ml 02/11/20 09:53 02/11/20 11:30 Saline Flush FLUSH 10 ml ONETIME PRN Administration IV FLUSH Discontinued Medications Generic Name Dose Route Start Last Admin Trade Name Rafyq PRN Reason Stop Dose Admin Diatrizoate Meglum/Diatrizoate Sod 120 ml 02/11/20 09:53 02/11/20 11:29 Gastrografin 37% PO 02/11/20 09:54 90 ml ONETIME ONE Administration Hydromorphone HCl 1 mg 02/11/20 09:48 02/11/20 10:00 Dilaudid IVPUSH 02/11/20 09:49 1 mg ONETIME ONE Administration Iopamidol 100 ml 02/11/20 09:53 02/11/20 11:23 Isovue-300 (61%) IVPUSH 02/11/20 09:54 100 ml ONETIME ONE Administration Ondansetron HCl 4 mg 02/11/20 09:47 02/11/20 10:00 Zofran IVPUSH 02/11/20 09:48 4 mg ONETIME ONE Administration - Re-Assessments/Exams Free Text/Narrative Re-Assessment/Exam: 02/11/20 12:42 I ordered an IV NS, zofran 4mg IV, dilaudid 1mg IV, labs, UA and a CT of her abdomen and pelvis. Her WBC was elevated at 10.89. Her glucose was 128. Her alk phos was elevated at 153. Her lipase is normal. Her UA shows no UTI. Her CT shows nothing acute is appreciated on CT study of the abdomen and pelvis. Departure - Departure Time of Disposition: 12:45 Disposition: Home, Self-Care 01 Condition: Good Clinical Impression: Abdominal pain Qualifiers: Abdominal location: left lower quadrant Qualified Code(s): R10.32 - Left lower quadrant pain - Discharge Information *PRESCRIPTION DRUG MONITORING PROGRAM REVIEWED*: Not Applicable *COPY OF PRESCRIPTION DRUG MONITORING REPORT IN PATIENT MARIA EUGENIA: Not Applicable Referrals: Aaliyah Ozuna MD [Primary Care Provider] - 1 Week Additional Instructions: Take your medication as prescribed. Follow up with Dr Ozuna within a week. Please return if you are worse. Sepsis Event Note (ED) - Evaluation Sepsis Screening Result: No Definite Risk - Focused Exam Vital Signs: Vital Signs Temp Pulse Resp BP Pulse Ox 02/11/20 09:31 98 F 70 18 164/67 H 95 - My Orders Last 24 Hours: My Active Orders 02/11/20 09:47 Peripheral IV Care [RC] . DIRECTED Sodium Chloride 0.9% [Saline Flush] 10 ml FLUSH ASDIRECTED PRN ED Antiemetic Medication Reflex [OM.PC] Stat Peripheral IV Insertion Adult [OM.PC] Stat 02/11/20 09:53 Sodium Chloride 0.9% [Saline Flush] 10 ml FLUSH ONETIME PRN 02/11/20 10:00 Sodium Chloride 0.9% [Normal Saline] 1,000 ml IV ASDIRECTED - Assessment/Plan Last 24 Hours: My Active Orders 02/11/20 09:47 Peripheral IV Care [RC] . DIRECTED Sodium Chloride 0.9% [Saline Flush] 10 ml FLUSH ASDIRECTED PRN ED Antiemetic Medication Reflex [OM.PC] Stat Peripheral IV Insertion Adult [OM.PC] Stat 02/11/20 09:53 Sodium Chloride 0.9% [Saline Flush] 10 ml FLUSH ONETIME PRN 02/11/20 10:00 Sodium Chloride 0.9% [Normal Saline] 1,000 ml IV ASDIRECTED
== END 2020-02-11 12:55 | disposition home or self-care (01) ==
LOC: JD.ED 09:23
DX: R10.32 Left lower quadrant pain (principal); I10 Essential (primary) hypertension; E78.00 Pure hypercholesterolemia, unspecified; J44.9 Chronic obstructive pulmonary disease, unspecified; K21.9 Gastro-esophageal reflux disease without esophagitis; E66.9 Obesity, unspecified; F41.9 Anxiety disorder, unspecified; F31.9 Bipolar disorder, unspecified; G62.9 Polyneuropathy, unspecified; F17.210 Nicotine dependence, cigarettes, uncomplicated; Z88.0 Allergy status to penicillin; Z88.5 Allergy status to narcotic agent; Z79.899 Other long term (current) drug therapy; Z68.39 Body mass index [BMI] 39.0-39.9, adult
CPT/HCPCS: 36415; 74177; 80053; 81001; 83690; 85025; 96361; 96374; 96375; 99284; J1170; J2405; J7030; Q9963; Q9967

== ENCOUNTER 2021-04-22 08:57 | Inpatient (IN) | payer MEDICARE, MEDICAID ==
[2021-04-22] MEDS ORDERED: Sodium Chloride 0.9% 10 ML Syringe FLUSH PRN (09:08)
--- NOTE | 2021-04-22 09:13 | EDM.PDOC ---
ED HPI GENERAL MEDICAL PROBLEM - General Chief Complaint: Trauma Stated Complaint: [facility] Time Seen by Provider: 04/22/21 08:58 Source of Information: Reports: Patient, EMS History Limitations: Reports: No Limitations - History of Present Illness INITIAL COMMENTS - FREE TEXT/NARRATIVE: 65-year-old female presents to the ED per [facility] complaining of major n right ankle and foot. Patient states around 2300 hrs. last evening she got tripped up on carpet which caused her to fall and resultant injury to her right dorsal lateral and medial ankle. She has pain in the forefoot as well. Pain also at the proximal fibula. Unable to weight-bear this morning. She did take morphine immediate release 15 mg around 3:00 this morning with no relief of the pain. Pain did keep her awake all night long. Patient is oxygen dependent at 3 L/min due to COPD. Clinically she has a low-grade fever of 100.4 degrees. She denies cough or sputum production. She is fully vaccinated for Covid and she is also had her booster shot. Denies any genitourinary complaints diarrhea nausea or vomiting. She denies any injuries to her head neck upper extremities or her back or abdomen. Onset: Sudden Onset Date: 04/21/21 Onset Time: 23:00 Duration: Hour(s):, Constant, Getting Worse Location: Reports: Lower Extremity, Right (Pain right ankle and foot.) Quality: Reports: Ache, Throbbing Severity: Moderate (8 out of 10) Improves with: Reports: Rest Worsens with: Reports: Movement (Unable to weight-bear in any attempt to dorsiflex or) Context: Reports: Trauma (Tripped up and fell she believes on her carpet last evening.). 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 this morning without much relief.) Right Ankle Pain Score (Numeric/FACES): 6 - Related Data Allergies Allergy/AdvReac Type Severity Reaction Status Date / Time Penicillins Allergy Severe Anaphylactic Verified 02/11/20 09:36 Shock codeine Allergy Itching Verified 02/11/20 09:36 Home Meds: Home Meds Albuterol [Ventolin HFA] 2 puff INH Q4H PRN 03/19/18 [History] Lactulose 30 ml PO ASDIRECTED 03/19/18 [History] Mirtazapine [Remeron] 22.5 tab PO BEDTIME 03/19/18 [History] Morphine [MS Contin] 30 mg PO BID 03/19/18 [History] Sennosides/Docusate Sodium [Senna-S] 2 tab PO BEDTIME 03/19/18 [History] tiZANidine [Zanaflex] 4 mg PO TID 03/19/18 [History] Pantoprazole [ProTONIX] 40 mg PO DAILY 07/20/18 [History] Calcium Carbonate/Vitamin D3 [Calcium 1,000 + D3 Caplet] 1 tab PO BID 02/11/20 [History] Diclofenac Sodium [Voltaren 1% Gel] 1 applic TOP TID PRN 02/11/20 [History] Lurasidone [Latuda] 40 mg PO DAILY 02/11/20 [History] Fluticasone/Umeclidin/Vilanter [Trelegy Ellipta 100-62.5-25] 1 puff PO DAILY 04/22/21 [History] Gabapentin [Neurontin] 800 mg PO TID 04/22/21 [History] LORazepam [Ativan] 0.5 mg PO ASDIRECTED 04/22/21 [History] Linaclotide [Linzess] 145 mcg PO DAILY 04/22/21 [History] Metoprolol Tartrate 25 mg PO BID 04/22/21 [History] Montelukast [Singulair] 10 mg PO BEDTIME 04/22/21 [History] Morphine Sulfate 15 mg PO Q8H PRN 04/22/21 [History] Mupirocin Oint [Bactroban Oint] 1 applic TOP TID 04/22/21 [History] Rosuvastatin [Crestor] 10 mg PO BEDTIME 04/22/21 [History] Zolpidem [Ambien] 10 mg PO BEDTIME 04/22/21 [History] buPROPion HCL [Bupropion HCl Sr] 150 mg PO DAILY 04/22/21 [History] hydrOXYzine HCL [hydrOXYzine] 25 mg PO TID PRN 04/22/21 [History] lisinopriL [Lisinopril] 20 mg PO DAILY 04/22/21 [History] Past Medical History HEENT History: Reports: Allergic Rhinitis Other HEENT History: allergic rhinitis Cardiovascular History: Reports: High Cholesterol, Hypertension Respiratory History: Reports: COPD Other Respiratory History: abnormal chest x-ray, wears 3L O2 via [place] Gastrointestinal History: Reports: GERD Genitourinary History: Reports: Urinary 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 [employer]OR [employer]DER History: Reports: Musculoskeletal History: Reports: Back Pain, Chronic (With sciatica right lower extremity in the L5 nerve root distribution. She has been told this is secondary to spinal stenosis. She apparently does have an intermittent foot drop right leg which makes her more prone to getting tripped up and falling), Fracture, Other (See Below) Other Musculoskeletal History: spinal stenosis Neurological History: Reports: Alzheimers Disease, Neuropathy, Peripheral Psychiatric History: Reports: Anxiety, Bipolar, Depression, Other (See Below) (Chronic insomnia) Endocrine/Metabolic History: Reports: Obesity/BMI 30+ Hematologic History: Reports: None Immunologic History: Reports: None Oncologic (Cancer) History: Reports: None Dermatologic History: Reports: None - Infectious Disease History Infectious Disease History: Reports: None - Past Surgical History HEENT Surgical History: Reports: Oral Surgery Musculoskeletal Surgical History: Reports: ORIF, Shoulder Surgery, Other (See Below) Other Musculoskeletal Surgeries/Procedures:: Left Leg Surgery. Social & Family History - Family History Family Medical History: No Pertinent Family History - Caffeine Use Caffeine Use: Reports: Coffee - Living Situation & Occupation Living situation: Reports: , Alone Occupation: Disabled Review of Systems - Review of Systems Review Of Systems: See Below Constitutional: Denies: Chills, Diaphoresis, Fever, Weakness, Other Eyes: Reports: Glasses Ears: Reports: No Symptoms Nose: Reports: No Symptoms Mouth/Throat: Reports: No Symptoms Respiratory: Reports: Shortness of Breath. Denies: Pleuritic Chest Pain, Cough (Chronically. She has COPD and is on oxygen at 3 L/min by nasal cannula at all times.), Sputum, Hemoptysis Cardiovascular: Denies: Chest Pain, Edema, Irregular Heart Rate, Lightheadedness, Palpitations, Syncope, Other GI/Abdominal: Reports: Constipation, Other (Obesity.) Genitourinary: Reports: Other (Urinary frequency without dysuria) Musculoskeletal: Reports: Joint Pain (Knees hips low back neck and shoulders) Skin: Reports: No Symptoms Neurological: Reports: No Symptoms Psychiatric: Reports: Other (Fibromyalgia syndrome. Chronic pain syndrome) ED EXAM, GENERAL - Physical Exam Exam: See Below Exam Limited By: No Limitations General Appearance: Alert, WD/WN, No Apparent Distress, Other Throat/Mouth: Normal Inspection, Normal Lips, Normal Oropharynx, Other Head: Atraumatic (No dental or tongue injury), Normocephalic Neck: Normal Inspection, Supple, Non-Tender, Full Range of Motion. No: Carotid Bruit, Lymphadenopathy (L), Lymphadenopathy (R) Respiratory/Chest: No Respiratory Distress, Lungs Clear, Normal Breath Sounds, No Accessory Muscle Use Cardiovascular: Normal Peripheral Pulses, Regular Rate, Rhythm, No Edema, No Gallop, No Murmur, No Rub Peripheral Pulses: 2+: Posterior Tibial (L), Posterior Tibial (R), Dorsalis Pedis (L), Dorsalis Pedis (R) GI/Abdominal: Normal Bowel Sounds, Soft, Non-Tender, No Organomegaly, Distended (Morbidly obese abdominal girth makes it difficult to palpate any solid organs. No surgical scars) Back Exam: Normal Inspection, Decreased Range of Motion, Other (Patient has chronic low back pain. She has spinal stenosis with sciatica L5 nerve root distribution right leg this does cause intermittent foot drop). No: CVA Tenderness (L), CVA Tenderness (R) Extremities: Normal Inspection, Normal Range of Motion, Non-Tender, Other (No injury to the left foot identified. She does have an abrasion just below her patella on the right side. She has marked swelling and ecchymoses both medial and lateral aspects of her ankle and midfoot. Mild pain on firm compression of the fifth metatarsal head. Mild pain on firm compression of) Neurological: Alert, Oriented, CN II-XII Intact, Normal Cognition, Sensory/Motor Deficit (Patient has weakness of both her quadriceps as well as knee extensors and flexors). No: Normal Gait (Unable to weight-bear on the right leg), No Motor/Sensory Deficits Psychiatric: Normal Affect, Normal Mood Skin Exam: Warm, Dry, Intact, Normal Color, No Rash Course - Vital Signs Last Recorded V/S: Last Vital Signs Temp 38.0 C 04/22/21 09:05 Pulse 52 L 04/22/21 12:59 Resp 13 04/22/21 12:59 BP 102/86 04/22/21 12:59 Pulse Ox 100 04/22/21 13:00 - Orders/Labs/Meds Orders: Active Orders 24 hr Category Date Time Status Peripheral IV Care [RC] . DIRECTED Care 04/22/21 09:08 Active Ankle Min 3V Rt [CR] Stat Exams 04/22/21 09:09 Taken Chest 1V Frontal [CR] Stat Exams 04/22/21 09:08 Taken Foot 2V Rt [CR] Stat Exams 04/22/21 09:10 Taken Tibia Fibula Rt [CR] Stat Exams 04/22/21 09:10 Taken BLOOD CULTURE [MREF] Stat Lab 04/22/21 09:25 Received BLOOD CULTURE [MREF] Stat Lab 04/22/21 09:33 Received URINALYSIS W/MICROSCOPIC [UA W/MICROSCOPIC] [URIN] Stat Lab 04/22/21 09:16 Ordered Sodium Chloride 0.9% [Saline Flush] Med 04/22/21 09:08 Active 10 ml FLUSH ASDIRECTED PRN Blood Culture x2 Reflex Set [OM.PC] Stat Oth 04/22/21 09:07 Ordered Durable Medical Equipment for Discharge [DME for Oth 04/22/21 11:22 Ordered Discharge] [COMM] Stat Peripheral IV Insertion Adult [OM.PC] Stat Oth 04/22/21 09:07 Ordered Medication Orders Sodium Chloride (Sodium Chloride 0.9% 10 Ml Syringe) 10 ml FLUSH ASDIRECTED PRN PRN Reason: Keep Vein Open Last Admin: 04/22/21 09:48 Dose: 10 ml Documented by: FEMI Labs: Laboratory Tests 04/22/21 04/22/21 04/22/21 Range/Units 08:50 09:33 09:33 WBC (3.98-10.04) K/mm3 RBC (3.98-5.22) M/mm3 Hgb (11.2-15.7) gm/dl Hct (34.1-44.9) % MCV (79.4-94.8) fl MCH (25.6-32.2) pg MCHC (32.2-35.5) g/dl RDW Std Deviation (36.4-46.3) fL Plt Count (182-369) K/mm3 MPV (9.4-12.3) fl Neut % (Auto) (34.0-71.1) % Lymph % (Auto) (19.3-51.7) % [place] % (Auto) (4.7-12.5) % Eos % (Auto) (0.7-5.8) Baso % (Auto) (0.1-1.2) % Neut # (Auto) (1.56-6.13) K/mm3 Lymph # (Auto) (1.18-3.74) K/mm3 [place] # (Auto) (0.24-0.36) K/mm3 Eos # (Auto) (0.04-0.36) K/mm3 Baso # (Auto) (0.01-0.08) K/mm3 PT (9.7-12.0) SECONDS INR APTT (21.7-31.4) SECONDS Sodium 138 (136-145) mEq/L Potassium 4.3 (3.5-5.1) mEq/L Chloride 101 (98-107) mEq/L Carbon Dioxide 35 H (21-32) mEq/L Anion Gap 6.3 (5-15) BUN 8 (7-18) mg/dL Creatinine 0.8 (0.55-1.02) mg/dL Est Cr Clr Drug Dosing 59.73 mL/min Estimated GFR (MDRD) > 60 (>60) mL/min BUN/Creatinine Ratio 10.0 L (14-18) Glucose 111 H (70-99) mg/dL Calcium 9.1 (8.5-10.1) mg/dL Magnesium 1.6 L (1.8-2.4) mg/dL Total Bilirubin 0.4 (0.2-1.0) mg/dL AST 15 (15-37) U/L ALT 29 (14-59) U/L Alkaline Phosphatase 117 H (46-116) U/L C-Reactive Protein 3.0 H* (<1.0) mg/dL NT-Pro-B Natriuret Pep 809 H (0-125) pg/mL Total Protein 7.6 (6.4-8.2) g/dl Albumin 3.3 L (3.4-5.0) g/dl Globulin 4.3 gm/dL Albumin/Globulin Ratio 0.8 L (1-2) SARS-CoV-2 RNA (AIDA) Negative (NEGATIVE) 04/22/21 04/22/21 Range/Units 09:33 09:33 WBC 10.02 (3.98-10.04) K/mm3 RBC 4.32 (3.98-5.22) M/mm3 Hgb 11.9 (11.2-15.7) gm/dl Hct 38.1 (34.1-44.9) % MCV 88.2 (79.4-94.8) fl MCH 27.5 (25.6-32.2) pg MCHC 31.2 L (32.2-35.5) g/dl RDW Std Deviation 44.0 (36.4-46.3) fL Plt Count 272 (182-369) K/mm3 MPV 9.4 (9.4-12.3) fl Neut % (Auto) 74.5 H (34.0-71.1) % Lymph % (Auto) 16.1 L (19.3-51.7) % [place] % (Auto) 8.3 (4.7-12.5) % Eos % (Auto) 0.7 (0.7-5.8) Baso % (Auto) 0.1 (0.1-1.2) % Neut # (Auto) 7.47 H (1.56-6.13) K/mm3 Lymph # (Auto) 1.61 (1.18-3.74) K/mm3 [place] # (Auto) 0.83 H (0.24-0.36) K/mm3 Eos # (Auto) 0.07 (0.04-0.36) K/mm3 Baso # (Auto) 0.01 (0.01-0.08) K/mm3 PT 11.0 (9.7-12.0) SECONDS INR 0.99 APTT 22.3 (21.7-31.4) SECONDS Sodium (136-145) mEq/L Potassium (3.5-5.1) mEq/L Chloride (98-107) mEq/L Carbon Dioxide (21-32) mEq/L Anion Gap (5-15) BUN (7-18) mg/dL Creatinine (0.55-1.02) mg/dL Est Cr Clr Drug Dosing mL/min Estimated GFR (MDRD) (>60) mL/min BUN/Creatinine Ratio (14-18) Glucose (70-99) mg/dL Calcium (8.5-10.1) mg/dL Magnesium (1.8-2.4) mg/dL Total Bilirubin (0.2-1.0) mg/dL AST (15-37) U/L ALT (14-59) U/L Alkaline Phosphatase (46-116) U/L C-Reactive Protein (<1.0) mg/dL NT-Pro-B Natriuret Pep (0-125) pg/mL Total Protein (6.4-8.2) g/dl Albumin (3.4-5.0) g/dl Globulin gm/dL Albumin/Globulin Ratio (1-2) SARS-CoV-2 RNA (AIDA) (NEGATIVE) Meds: Medications Generic Name Dose Route Start Last Admin Trade Name Freq PRN Reason Stop Dose Admin Sodium Chloride 10 ml 04/22/21 09:08 04/22/21 09:48 Sodium Chloride 0.9% 10 Ml Syringe FLUSH 10 ml ASDIRECTED PRN Administration Keep Vein Open Discontinued Medications Generic Name Dose Route Start Last Admin Trade Name Freq PRN Reason Stop Dose Admin Diphenhydramine HCl 25 mg 04/22/21 09:27 04/22/21 09:40 Diphenhydramine 50 Mg/Ml Sdv IVPUSH 04/22/21 09:28 25 mg ONETIME ONE Administration Hydromorphone HCl 1 mg 04/22/21 09:26 04/22/21 09:47 Hydromorphone 1 Mg/Ml Syringe IVPUSH 04/22/21 09:27 1 mg ONETIME ONE Administration Metoclopramide HCl 7.5 mg 04/22/21 09:26 04/22/21 09:43 Metoclopramide 10 Mg/2 Ml Sdv IVPUSH 04/22/21 09:27 7.5 mg ONETIME ONE Administration - Radiology Interpretation Free Text/Narrative:: 65-year-old female presents to the ED after getting tripped up on carpeting at home last evening around 2300 hrs. This propelled her to the floor and she believes her right foot got caught under the couch. She has been unable to weight-bear on her right foot since. The pain kept her awake almost all night long suggestive of an underlying fracture. She took a morphine tablet I believe 15 mg but she has 30 mg listed in her med list around 0300 hrs. this morning with minimal pain relief. She has chronic fibromyalgia and chronic pain syndrome. Examination of her right ankle shows marked swelling bilaterally with ecchymoses and suggestive of an underlying fracture. She will have x-rays of her ankle foot and right tib-fib. Saline lock will be started she will have routine labs including blood cultures x2 since she has a temperature of 100.4 degrees with no obvious source for this infection. She is up-to-date on her Covid vaccines including a booster shot. Given Dilaudid 1 mg IV with Zofran 4 mg IV for pain relief. - Re-Assessments/Exams Free Text/Narrative Re-Assessment/Exam: 04/22/21 10:13 chest x-ray done portably reveals scar tissue within the right middle lobe and the azygous fissure. There is also some scarring within the right lower lobe of the lung. Mild cardiomegaly appreciated. Mediastinum appears normal. X-rays of the tib-fib reveals spiral fractures which are undisplaced of the distal aspect of the right fibula. The tibia is normal. Ankle x-rays confirm fracture within the distal fibula which do not involve the joint space. This is a spiral type fracture. The bones of the ankle and foot are osteopenic. No fractures identified within the right foot bones. Patient is going to require splinting by posterior slab and Ortho-Glass stirrup splint. Free Text/Narrative Re-Assessment/Exam: 04/22/21 10:24 White count is upper limits of normal at 10.02. The differential on the auto differential of 74.5% neutrophils. Hemoglobin is slightly low at 11.9 with hematocrit of 38.1. Platelet count 272,000. PT is 11.0 with an INR of 0.99 and a PTT of 22.3 04/22/21 10:58 patient was placed in a Ortho-Glass posterior slab and stirrup splint to support her right lower extremity. I suspect she could get by with pa rtial weightbearing on her heel. She is moderately obese however. I do not think she will do well with crutches. We will may try her with a roller walker. Failing this she may need placement in a care center for the next month. That otherwise the plan will be her for her to see Dr. Granados today in clinic next week for cast placement. 04/22/21 12:52 We have notified the dialysis social worker to attend the patient to see if there is a facility that we can send her to today versus admission to the hospital due to fracture of her distal right fibula and inability to care for herself. Her daughter lives in [facility] and states that she has no room in her house for her mother at this time. She feels that her mother is incapable of looking after herself in her own home and feels that she falls easily at the best of time due to spinal stenosis affecting the right lower extremity. The patient is even reluctant to try and take a step even with the Ortho-Glass splint in place with the aid of a walker. 04/22/21 14:15 Irlanda from the [employer] [facility] [employer] has been working hard to see if we can find alternative placement for this patient. So far [facility] as well as [facility]' snf is turned is down. We are still waiting to hear back from [facility]. 04/22/21 15:35 We had night no LOC placing this patient in a center that could look after for the next month or so until she can be able to walk on her right foot. I therefore discussed the case with Dr. Magana on-call hospitalist and the patient will be admitted to the med surgery floor as an inpatient without the need for telemetry. 04/22/21 15:39 patient is reporting to nursing staff that she is having increased pain. She missed her MS Contin 30 mg tablet this morning and therefore I did order it at this time. Departure - Departure Time of Disposition: 15:40 Disposition: Admitted As Inpatient 65 Condition: Fair Clinical Impression: Fall as cause of accidental injury at home as place of occurrence, Obesity due to excess calories, Chronic pain syndrome Fracture of distal end of fibula Qualifiers: Encounter type: initial encounter Fracture type: closed Fracture morphology: other fracture Laterality: right Qualified Code(s): S82.831A - Other fracture of upper and lower end of right fibula, initial encounter for closed fracture Chronic low back pain with right-sided sciatica Qualifiers: Back pain laterality: right Qualified Code(s): M54.41 - Lumbago with sciatica, right side; G89.29 - Other chronic pain - Discharge Information Referrals: PCP,None [Ordering Only Provider] - Forms: ED Department Discharge Sepsis Event Note (ED) - Focused Exam Vital Signs: Vital Signs Temp Pulse Resp BP Pulse Ox 04/22/21 13:00 100 04/22/21 12:59 52 L 13 102/86 85 L 04/22/21 09:05 38.0 C 94 14 137/55 L 100 - My Orders Last 24 Hours: My Active Orders 04/22/21 09:07 Blood Culture x2 Reflex Set [OM.PC] Stat Peripheral IV Insertion Adult [OM.PC] Stat 04/22/21 09:08 Peripheral IV Care [RC] . DIRECTED Chest 1V Frontal [CR] Stat Sodium Chloride 0.9% [Saline Flush] 10 ml FLUSH ASDIRECTED PRN 04/22/21 09:09 Ankle Min 3V Rt [CR] Stat 04/22/21 09:10 Foot 2V Rt [CR] Stat Tibia Fibula Rt [CR] Stat 04/22/21 09:16 URINALYSIS W/MICROSCOPIC [UA W/MICROSCOPIC] [URIN] Stat 04/22/21 09:25 BLOOD CULTURE [MREF] Stat 04/22/21 09:33 BLOOD CULTURE [MREF] Stat 04/22/21 11:22 Durable Medical Equipment for Discharge [DME for Discharge] [COMM] Stat - Assessment/Plan Last 24 Hours: My Active Orders 04/22/21 09:07 Blood Culture x2 Reflex Set [OM.PC] Stat Peripheral IV Insertion Adult [OM.PC] Stat 04/22/21 09:08 Peripheral IV Care [RC] . DIRECTED Chest 1V Frontal [CR] Stat Sodium Chloride 0.9% [Saline Flush] 10 ml FLUSH ASDIRECTED PRN 04/22/21 09:09 Ankle Min 3V Rt [CR] Stat 04/22/21 09:10 Foot 2V Rt [CR] Stat Tibia Fibula Rt [CR] Stat 04/22/21 09:16 URINALYSIS W/MICROSCOPIC [UA W/MICROSCOPIC] [URIN] Stat 04/22/21 09:25 BLOOD CULTURE [MREF] Stat 04/22/21 09:33 BLOOD CULTURE [MREF] Stat 04/22/21 11:22 Durable Medical Equipment for Discharge [DME for Discharge] [COMM] Stat
[2021-04-22] MEDS ORDERED: Metoclopramide 10 MG/2 ML SDV IVPUSH ONE (09:26)
[2021-04-22] MEDS ORDERED: HYDROmorphone 1 MG/ML Syringe IVPUSH ONE (09:26)
[2021-04-22] MEDS ORDERED: diphenhydrAMINE 50 MG/ML SDV IVPUSH ONE (09:27)
[2021-04-22] MEDS ORDERED: Morphine 15 MG Tab.ER PO ONE (15:37)
[2021-04-22] MEDS ORDERED: Magnesium Sulfate/Water 2 GM in Premix Bag 1 BAG IV ONE (18:55)
[2021-04-22] MEDS ORDERED: Morphine 15 MG Tab PO PRN (19:04)
[2021-04-22] MEDS ORDERED: Diclofenac Sodium 1% Gel 100 GM Tube TOP PRN (19:04)
[2021-04-22] MEDS ORDERED: Albuterol 6.7 GM Inhaler INH PRN (19:04)
--- NOTE | 2021-04-22 19:10 | PCM.HP.2 ---
H&P History of Present Illness - General Date of Service: 04/22/21 Admit Problem/Dx: Admission Diagnosis/Problem Admission Diagnosis/Problem Fall as cause of accidental injury in home as place of occurrence - History of Present Illness Initial Comments - Free Text/Narative: 65-year-old female with history of chronic low back pain secondary to spinal stenosis, fibromyalgia, obesity, tripped on her carpet last evening injuring her right ankle. She did not present to the emergency department until this morning. Patient tried to manage the pain with her home dose of morphine for her chronic pain, but the pain was sharp and severe. She is unable to bear weight on that right ankle without significant and worsening pain along the lateral side. Patient is on 3 L/min of O2 secondary to COPD and when she arrived at the emergency department she did have a temperature of 100.4. She had no cough or sputum production. She is vaccinated against COVID-19. In the emergency department she was found to have an acute and oblique fracture within the distal fibula without displacement. Other than old injuries nothing else noted on x-ray of the right leg, ankle, and foot. Patient had a splint placed by the emergency room physician, but she lives alone and was unable to return home. They tried most of the day to get usp placement without success. Patient is being admitted awaiting usp placement after the weekend. Right Ankle Pain Score (Numeric/FACES): 6 - Related Data Allergies/Adverse Reactions: Allergies Allergy/AdvReac Type Severity Reaction Status Date / Time Penicillins Allergy Severe Anaphylactic Verified 02/11/20 09:36 Shock quetiapine [From Seroquel] Allergy Severe Anaphylactic Verified 04/22/21 18:22 Shock codeine Allergy Mild Itching Verified 04/22/21 18:22 Home Medications: Home Meds Albuterol [Ventolin HFA] 2 puff INH Q4H PRN 03/19/18 [History] Lactulose 30 ml PO ASDIRECTED 03/19/18 [History] Mirtazapine [Remeron] 1 tab PO BEDTIME 03/19/18 [History] Morphine [MS Contin] 30 mg PO BID 03/19/18 [History] Sennosides/Docusate Sodium [Senna-S] 2 tab PO BEDTIME 03/19/18 [History] tiZANidine [Zanaflex] 4 mg PO TID 10/02/18 [History] Pantoprazole [ProTONIX] 40 mg PO DAILY 07/20/18 [History] Calcium Carbonate/Vitamin D3 [Calcium 1,000 + D3 Caplet] 1 tab PO BID 02/11/20 [History] Diclofenac Sodium [Voltaren 1% Gel] 1 applic TOP TID PRN 02/11/20 [History] Lurasidone [Latuda] 40 mg PO DAILY 02/11/20 [History] Fluticasone/Umeclidin/Vilanter [Trelegy Ellipta 100-62.5-25] 1 puff PO DAILY 04/22/21 [History] Gabapentin [Neurontin] 800 mg PO TID 04/22/21 [History] LORazepam [Ativan] 0.5 mg PO ASDIRECTED 04/22/21 [History] Linaclotide [Linzess] 145 mcg PO DAILY 04/22/21 [History] Metoprolol Tartrate 25 mg PO BID 04/22/21 [History] Montelukast [Singulair] 10 mg PO BEDTIME 04/22/21 [History] Morphine Sulfate 15 mg PO Q8H PRN 04/22/21 [History] Mupirocin Oint [Bactroban Oint] 1 applic TOP TID 04/22/21 [History] Rosuvastatin [Crestor] 10 mg PO BEDTIME 04/22/21 [History] Zolpidem [Ambien] 10 mg PO BEDTIME 04/22/21 [History] buPROPion HCL [Bupropion HCl Sr] 150 mg PO DAILY 04/22/21 [History] hydrOXYzine HCL [hydrOXYzine] 25 mg PO TID PRN 04/22/21 [History] lisinopriL [Lisinopril] 20 mg PO DAILY 04/22/21 [History] Past Medical History HEENT History: Reports: Allergic Rhinitis Other HEENT History: allergic rhinitis Cardiovascular History: Reports: High Cholesterol, Hypertension Respiratory History: Reports: Asthma, COPD, Sleep Apnea, SOB Other Respiratory History: abnormal chest x-ray, wears 3L O2 via [place] Gastrointestinal History: Reports: Chronic Constipation, GERD Genitourinary History: Reports: Urinary 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: Musculoskeletal History: Reports: Back Pain, Chronic, Fracture, Other (See Below) Other Musculoskeletal History: spinal stenosis Neurological History: Reports: Neuropathy, Peripheral Psychiatric History: Reports: Anxiety, Bipolar, Depression, Other (See Below) Endocrine/Metabolic History: Reports: Obesity/BMI 30+ Hematologic History: Reports: None Immunologic History: Reports: None Oncologic (Cancer) History: Reports: None Dermatologic History: Reports: None - Infectious Disease History Infectious Disease History: Reports: None, Influenza, Measles, Mumps - Past Surgical History Head Surgeries/Procedures: Reports: None HEENT Surgical History: Reports: Oral Surgery Cardiovascular Surgical History: Reports: None Respiratory Surgical History: Reports: None GI Surgical History: Reports: Colonoscopy Female Surgical History: Reports: None Endocrine Surgical History: Reports: None Neurological Surgical History: Reports: None Musculoskeletal Surgical History: Reports: ORIF, Shoulder Surgery, Other (See Below) Dermatological Surgical History: Reports: None Social & Family History - Family History Family Medical History: No Pertinent Family History - Tobacco Use Tobacco Use Status *Q: Former Tobacco User Years of Tobacco use: 40 Packs/Tins Daily: 0.5 Used Tobacco, but Quit: Yes Month/Year Tobacco Last Used: 04/2020 Second Hand Smoke Exposure: No - Caffeine Use Caffeine Use: Reports: Coffee Other Caffeine Use: 1 cup per day - Recreational Drug Use Recreational Drug Use: No - Living Situation & Occupation Living situation: Reports: , Alone Occupation: Disabled H&P Review of Systems - Review of Systems: Review Of Systems: Comprehensive ROS is negative, except as noted in HPI. Exam - Exam Exam: See Below - Vital Signs Vital Signs: Last Vital Signs Temp 98.2 F 04/22/21 16:37 Pulse 74 04/22/21 16:37 Resp 18 04/22/21 16:37 BP 162/51 H 04/22/21 16:37 Pulse Ox 94 L 04/22/21 16:37 Weight: 254 lb 8 oz - Exam Quality Assessment: Supplemental Oxygen General: Alert, Oriented, 4 HEENT: Conjunctiva Clear, Hearing Intact, Mucosa Moist & [place] Lungs: Clear to Auscultation, Normal Respiratory Effort Cardiovascular: Regular Rate, Regular Rhythm GI/Abdominal Exam: Normal Bowel Sounds, Soft, Non-Tender, No Organomegaly, No Distention, No Abnormal Bruit, No Mass Extremities: No Pedal Edema, Limited Range of Motion, Other (Right ankle in a posterior splint. Sensation intact to distal great toe.) Skin: Warm, Dry, Intact Neurological: Cranial Nerves Intact Neuro Extensive - Mental Status: Alert, Oriented x3, Normal Mood/Affect, Normal Cognition, Memory Intact Psychiatric: Alert, Normal Affect, Normal Mood - Patient Data Lab Results Last 24 hrs: Laboratory Results - last 24 hr 04/22/21 04/22/21 04/22/21 Range/Units 08:50 09:33 09:33 WBC (3.98-10.04) K/mm3 RBC (3.98-5.22) M/mm3 Hgb (11.2-15.7) gm/dl Hct (34.1-44.9) % MCV (79.4-94.8) fl MCH (25.6-32.2) pg MCHC (32.2-35.5) g/dl RDW Std Deviation (36.4-46.3) fL Plt Count (182-369) K/mm3 MPV (9.4-12.3) fl Neut % (Auto) (34.0-71.1) % Lymph % (Auto) (19.3-51.7) % [place] % (Auto) (4.7-12.5) % Eos % (Auto) (0.7-5.8) Baso % (Auto) (0.1-1.2) % Neut # (Auto) (1.56-6.13) K/mm3 Lymph # (Auto) (1.18-3.74) K/mm3 [place] # (Auto) (0.24-0.36) K/mm3 Eos # (Auto) (0.04-0.36) K/mm3 Baso # (Auto) (0.01-0.08) K/mm3 PT (9.7-12.0) SECONDS INR APTT (21.7-31.4) SECONDS Sodium 138 (136-145) mEq/L Potassium 4.3 (3.5-5.1) mEq/L Chloride 101 (98-107) mEq/L Carbon Dioxide 35 H (21-32) mEq/L Anion Gap 6.3 (5-15) BUN 8 (7-18) mg/dL Creatinine 0.8 (0.55-1.02) mg/dL Est Cr Clr Drug Dosing 59.73 mL/min Estimated GFR (MDRD) > 60 (>60) mL/min BUN/Creatinine Ratio 10.0 L (14-18) Glucose 111 H (70-99) mg/dL Calcium 9.1 (8.5-10.1) mg/dL Magnesium 1.6 L (1.8-2.4) mg/dL Total Bilirubin 0.4 (0.2-1.0) mg/dL AST 15 (15-37) U/L ALT 29 (14-59) U/L Alkaline Phosphatase 117 H (46-116) U/L C-Reactive Protein 3.0 H* (<1.0) mg/dL NT-Pro-B Natriuret Pep 809 H (0-125) pg/mL Total Protein 7.6 (6.4-8.2) g/dl Albumin 3.3 L (3.4-5.0) g/dl Globulin 4.3 gm/dL Albumin/Globulin Ratio 0.8 L (1-2) SARS-CoV-2 RNA (AIDA) Negative (NEGATIVE) 04/22/21 04/22/21 Range/Units 09:33 09:33 WBC 10.02 (3.98-10.04) K/mm3 RBC 4.32 (3.98-5.22) M/mm3 Hgb 11.9 (11.2-15.7) gm/dl Hct 38.1 (34.1-44.9) % MCV 88.2 (79.4-94.8) fl MCH 27.5 (25.6-32.2) pg MCHC 31.2 L (32.2-35.5) g/dl RDW Std Deviation 44.0 (36.4-46.3) fL Plt Count 272 (182-369) K/mm3 MPV 9.4 (9.4-12.3) fl Neut % (Auto) 74.5 H (34.0-71.1) % Lymph % (Auto) 16.1 L (19.3-51.7) % [place] % (Auto) 8.3 (4.7-12.5) % Eos % (Auto) 0.7 (0.7-5.8) Baso % (Auto) 0.1 (0.1-1.2) % Neut # (Auto) 7.47 H (1.56-6.13) K/mm3 Lymph # (Auto) 1.61 (1.18-3.74) K/mm3 [place] # (Auto) 0.83 H (0.24-0.36) K/mm3 Eos # (Auto) 0.07 (0.04-0.36) K/mm3 Baso # (Auto) 0.01 (0.01-0.08) K/mm3 PT 11.0 (9.7-12.0) SECONDS INR 0.99 APTT 22.3 (21.7-31.4) SECONDS Sodium (136-145) mEq/L Potassium (3.5-5.1) mEq/L Chloride (98-107) mEq/L Carbon Dioxide (21-32) mEq/L Anion Gap (5-15) BUN (7-18) mg/dL Creatinine (0.55-1.02) mg/dL Est Cr Clr Drug Dosing mL/min Estimated GFR (MDRD) (>60) mL/min BUN/Creatinine Ratio (14-18) Glucose (70-99) mg/dL Calcium (8.5-10.1) mg/dL Magnesium (1.8-2.4) mg/dL Total Bilirubin (0.2-1.0) mg/dL AST (15-37) U/L ALT (14-59) U/L Alkaline Phosphatase (46-116) U/L C-Reactive Protein (<1.0) mg/dL NT-Pro-B Natriuret Pep (0-125) pg/mL Total Protein (6.4-8.2) g/dl Albumin (3.4-5.0) g/dl Globulin gm/dL Albumin/Globulin Ratio (1-2) SARS-CoV-2 RNA (AIDA) (NEGATIVE) Result Diagrams: 04/22/21 09:33 04/22/21 09:33 Sepsis Event Note - Evaluation Sepsis Screening Result: No Definite Risk - Focused Exam Vital Signs: Vital Signs Temp Temp Pulse Pulse Resp BP BP 04/22/21 16:37 98.2 F 74 18 162/51 H 04/22/21 16:35 78 18 139/53 L 04/22/21 13:00 04/22/21 12:59 52 L 13 102/86 04/22/21 09:05 100.4 F 94 14 137/55 L Pulse Ox 04/22/21 16:37 94 L 04/22/21 16:35 100 04/22/21 13:00 100 04/22/21 12:59 85 L 04/22/21 09:05 100 - Problem List (1) Chronic low back pain with right-sided sciatica SNOMED Code(s): 525869875 ICD Code: M54.41 - LUMBAGO WITH SCIATICA, RIGHT SIDE; G89.29 - OTHER CHRONIC PAIN Status: Acute Current Visit: Yes Qualifiers: Back pain laterality: right Qualified Code(s): M54.41 - Lumbago with sciatica, right side; G89.29 - Other chronic pain (2) Fall as cause of accidental injury at home as place of occurrence SNOMED Code(s): 84628821 ICD Code: W19.XXXA - UNSPECIFIED FALL, INITIAL ENCOUNTER; Y92.009 - UNSP PLACE IN [facility] Status: Acute Current Visit: Yes (3) Fracture of distal end of fibula SNOMED Code(s): 986105479 ICD Code: S82.839A - OTH FRACTURE OF UPPER AND LOWER END OF UNSP FIBULA, INIT Status: Acute Current Visit: Yes Qualifiers: Encounter type: initial encounter Fracture type: closed Fracture morphology: other fracture Laterality: right Qualified Code(s): S82.831A - Other fracture of upper and lower end of right fibula, initial encounter for closed fracture (4) Obesity due to excess calories SNOMED Code(s): 075274211, 990978407 ICD Code: E66.09 - OTHER OBESITY DUE TO EXCESS CALORIES Status: Acute Current Visit: Yes Problem List Initiated/Reviewed/Updated: Yes Orders Last 24hrs: Active Orders 24 hr Category Date Time Status Patient Status [ADT] Routine ADT 04/22/21 15:44 Active Peripheral IV Care [RC] . DIRECTED Care 04/22/21 09:08 Active Ankle Min 3V Rt [CR] Stat Exams 04/22/21 09:09 Taken Chest 1V Frontal [CR] Stat Exams 04/22/21 09:08 Taken Foot 2V Rt [CR] Stat Exams 04/22/21 09:10 Taken Tibia Fibula Rt [CR] Stat Exams 04/22/21 09:10 Taken BLOOD CULTURE [MREF] Stat Lab 04/22/21 09:25 Received BLOOD CULTURE [MREF] Stat Lab 04/22/21 09:33 Received URINALYSIS W/MICROSCOPIC [UA W/MICROSCOPIC] [URIN] Stat Lab 04/22/21 09:16 Ordered Albuterol Med 04/22/21 19:04 Ordered 2 puff INH Q4H PRN Calcium Carbonate/Vitamin D3 [Calcium 1,000 + D3 Caplet Med 04/22/21 21:00 Ordered ] 1 tab PO BID Diclofenac Sodium [Voltaren 1% Gel] Med 04/22/21 19:04 Ordered 1 applic TOP TID PRN Docusate Sodium/Sennosides [Senna Plus] Med 04/22/21 21:00 Ordered 2 tab PO BEDTIME Fluticasone/Umeclidin/Vilanter Med 04/23/21 09:00 Ordered 1 puff PO DAILY Gabapentin Med 04/22/21 21:00 Ordered 800 mg PO TID Lactulose Med 04/22/21 19:15 Ordered 30 ml PO ASDIRECTED Linaclotide [Linzess] Med 04/23/21 09:00 Ordered 145 mcg PO DAILY Lurasidone [Latuda] Med 04/23/21 09:00 Ordered 40 mg PO DAILY Magnesium Sulfate/Water [Magnesium Sulfate in Water 2 Med 04/22/21 18:55 Ordered GM/50 ML] 2 gm Premix Bag 1 bag IV ONETIME Metoprolol Tartrate [Lopressor] Med 04/22/21 21:00 Ordered 25 mg PO BID Mirtazapine [Remeron] Med 04/22/21 21:00 Ordered 337.5 mg PO BEDTIME Montelukast [Singulair] Med 04/22/21 21:00 Ordered 10 mg PO BEDTIME Morphine Med 04/22/21 18:57 Ordered 15 mg PO Q4H PRN Morphine Med 04/22/21 19:04 Ordered 15 mg PO Q8H PRN Morphine Med 04/22/21 19:04 Ordered 2 mg IVPUSH Q2H PRN Morphine Med 04/22/21 21:00 Ordered 30 mg PO BID Mupirocin Oint [Bactroban Oint] Med 04/22/21 21:00 Ordered 1 applic TOP TID Pantoprazole [ProTONIX] Med 04/23/21 09:00 Ordered 40 mg PO DAILY Rosuvastatin [Crestor] Med 04/22/21 21:00 Ordered 10 mg PO BEDTIME Sodium Chloride 0.9% [Saline Flush] Med 04/22/21 09:08 Active 10 ml FLUSH ASDIRECTED PRN Zolpidem [Ambien] Med 04/22/21 21:00 Ordered 10 mg PO BEDTIME buPROPion HCL [Bupropion HCl Sr] Med 04/23/21 09:00 Ordered 150 mg PO DAILY hydrOXYzine HCL [Atarax] Med 04/22/21 19:04 Ordered 25 mg PO TID PRN lisinopriL [Prinivil] Med 04/23/21 09:00 Ordered 20 mg PO DAILY tiZANidine [Zanaflex] Med 04/22/21 21:00 Ordered 4 mg PO TID Blood Culture x2 Reflex Set [OM.PC] Stat Oth 04/22/21 09:07 Ordered Durable Medical Equipment for Discharge [DME for Oth 04/22/21 11:22 Ordered Discharge] [COMM] Stat Peripheral IV Insertion Adult [OM.PC] Stat Oth 04/22/21 09:07 Ordered Code Status [Resuscitation Status] Routine Resus Stat 04/22/21 18:21 Ordered Medication Orders Magnesium Sulfate 2 gm/ Premix 50 mls @ 25 mls/hr IV ONETIME ONE Stop: 04/22/21 20:54 Morphine Sulfate (Morphine 15 Mg Tab) 15 mg PO Q4H PRN PRN Reason: Pain (severe 7-10) Morphine Sulfate (Morphine 2 Mg/Ml Syringe) 2 mg IVPUSH Q2H PRN PRN Reason: Pain (severe 7-10) Sodium Chloride (Sodium Chloride 0.9% 10 Ml Syringe) 10 ml FLUSH ASDIRECTED PRN PRN Reason: Keep Vein Open Last Admin: 04/22/21 09:48 Dose: 10 ml Documented by: [email or web address] Assessment/Plan Comment:: 65-year-old obese female with chronic pain syndrome, chronic low back pain secondary to spinal stenosis, fibromyalgia, and bipolar disorder admitted to the hospital secondary to right distal fibular fracture. Right distal fibular fracture * No distal neurovascular compromise * Patient placed in a posterior splint by emergency department * She will need to follow-up with Ortho 5 to 7 days for definitive care * She was unable to return to home secondary to inability to ambulate on that ankle. She will need skilled care facility until she is able to get around. * Placement cannot be obtained in the emergency department. Chronic pain syndrome, chronic low back pain, fibromyalgia * Patient is on long-acting and short acting morphine for pain. * Also on gabapentin, Zanaflex * Pain will be worse and hard to control secondary to chronic narcotic therapy. Bipolar disorder * Patient is on Latuda, bupropion, Remeron Hypertension * Blood pressure well controlled in the emergency department * On metoprolol and lisinopril. Plan * Admit to medical floor awaiting placement * Continue home medications as appropriate. We will not have some medications on formulary so those will need to be obtained from home. * Increase her oral morphine to 15 mg every 4 hours as needed instead of q. 8. * Morphine 2 mg IV every 2 hours as needed for severe pain. Prefer using oral morphine over IV. * Will order physical therapy. Toe-touch weightbearing for now. * [facility] checks to right lower extremity every 3 hours VTE prophylaxis with Lovenox CODE STATUS: Full code - Mortality Measure Prognosis:: Good
[2021-04-22] MEDS ORDERED: Morphine 30 MG Tab.ER PO SCH (21:00)
[2021-04-22] MEDS ORDERED: Mirtazapine 15 MG Tab PO SCH (21:00)
[2021-04-22] MEDS: Morphine 15 MG Tab.ER PO SCH (21:06)
[2021-04-22] MEDS: Gabapentin 100 MG Cap PO SCH (21:08)
[2021-04-22] MEDS: tiZANidine 4 MG Tab PO SCH (21:09)
[2021-04-22] MEDS: Mirtazapine 15 MG Tab PO SCH (21:09)
[2021-04-22] MEDS: Gabapentin 600 MG Tab PO SCH (21:09)
[2021-04-22] MEDS: Metoprolol Tartrate 25 MG Tab PO SCH (21:09)
[2021-04-22] MEDS: Rosuvastatin 10 MG Tab PO SCH (21:10)
[2021-04-22] MEDS: Montelukast 10 MG Tab PO SCH (21:10)
[2021-04-22] MEDS: Zolpidem 10 MG Tab PO SCH (21:10)
[2021-04-23] MEDS: Morphine 15 MG Tab PO PRN ×5 (03:35→23:39)
[2021-04-23] MEDS: Pantoprazole 40 MG Tab.CR PO SCH (07:54)
--- NOTE | 2021-04-23 08:40 | CR ---
Right ankle: 4 views of the right ankle were obtained. Comparison: No prior ankle study is available. Well-corticated bony density is seen off the medial malleolus which is old. Acute oblique fracture is noted within the distal fibula which shows no significant displacement. Minimal spur is noted at the attachment of the Achilles tendon to the calcaneus. Mild soft tissue swelling is noted. Impression: 1. Nondisplaced distal fibular fracture with soft tissue swelling. 2. Other findings believed to be incidental as noted above. Diagnostic code #3
--- NOTE | 2021-04-23 08:41 | CR ---
Chest: AP view of the chest was obtained. Comparison: Prior chest x-ray of 03/19/18. Scarring is seen within the right mid to lower lung. Thickening is noted along the right minor fissure. Slight pleural thickening is noted along the right lateral chest wall. Heart is slightly prominent. Left lung is clear. Bony structures show nothing acute. Impression: 1. Density along the right minor fissure most likely representing atelectasis. 2. Slight pleural thickening is seen along the right lateral chest wall which is most likely chronic. 3. Slight linear density within the right mid to lower lung compatible with atelectasis. 4. Mild cardiomegaly. Diagnostic code #3
--- NOTE | 2021-04-23 08:45 | CR ---
Right foot: 3 views of the right foot were obtained. Comparison: No prior foot study is available. Acute and oblique fracture is noted within the distal fibula. Minimal cyst is noted at the base of the first metatarsal likely due to slight degenerative change. Small calcification is noted off the cuboid bone most likely due to old injury. No additional fracture, dislocation or other bony abnormality is appreciated. Impression: 1. Acute and oblique fracture within the distal fibula. No displacement is seen. 2. Slight degenerative change and old injury as noted above. 3. No other acute abnormality is seen. Diagnostic code #3
--- NOTE | 2021-04-23 09:06 | CR ---
Right tibia and fibula: AP and lateral views of the right tibia and fibula were. Comparison: No prior tibia or fibula study is available. Distal fibular fracture is seen which is oblique in alignment. Alignment is anatomic. Well-defined bony density off the medial malleolus is seen compatible with old injury. Soft tissue swelling is noted. Minimal joint space narrowing is noted within the medial compartment. Impression: 1. Distal fibular fracture with soft tissue swelling. 2. Old injury as noted above. Mild joint space narrowing within the medial compartment. Diagnostic code #3
[2021-04-23] MEDS: Gabapentin 100 MG Cap PO SCH ×3 (10:49→20:53)
[2021-04-23] MEDS: tiZANidine 4 MG Tab PO SCH ×3 (10:50→20:54)
[2021-04-23] MEDS: Gabapentin 600 MG Tab PO SCH ×3 (10:50→20:53)
[2021-04-23] MEDS: Morphine 15 MG Tab.ER PO SCH ×2 (10:51→20:52)
[2021-04-23] MEDS: Metoprolol Tartrate 25 MG Tab PO SCH ×2 (10:53→20:51)
[2021-04-23] MEDS: buPROPion 150 MG Tab.ER PO SCH (10:55)
[2021-04-23] MEDS: Lisinopril 20 MG Tab PO SCH (10:55)
[2021-04-23] MEDS: hydrOXYzine HCl 25 MG Tab PO PRN (11:04)
--- NOTE | 2021-04-23 12:50 | PCM.PN ---
- General Info Date of Service: 04/23/21 Admission Dx/Problem (Free Text): Admission Diagnosis/Problem Admission Diagnosis/Problem Fall as cause of accidental injury in home as place of occurrence Subjective Update: Patient states that she is feeling well. There is no complaints this morning except for some continued right ankle pain. She had a bowel movement this morning. Functional Status: Reports: Pain Controlled - Review of Systems General: Reports: No Symptoms HEENT: Reports: No Symptoms Pulmonary: Reports: No Symptoms Cardiovascular: Reports: No Symptoms Gastrointestinal: Reports: No Symptoms Musculoskeletal: Reports: No Symptoms - Patient Data Vitals - Most Recent: Last Vital Signs Temp 98.4 F 04/23/21 07:34 Pulse 66 04/23/21 10:53 Resp 17 04/23/21 07:34 BP 155/76 H 04/23/21 10:55 Pulse Ox 99 04/23/21 09:41 Weight - Most Recent: 255 lb 1.6 oz I&O - Last 24 Hours: Intake & Output 04/22/21 04/23/21 04/23/21 22:59 06:59 14:59 Intake Total 0 350 Output Total 250 750 Balance -250 -400 Lab Results Last 24 Hours: Laboratory Results - last 24 hr 04/22/21 Range/Units 21:38 Urine Color Yellow (Yellow) Urine Appearance Clear (Clear) Urine pH 7.5 (5.0-8.0) Ur Specific [place] 1.020 (1.005-1.030) Urine Protein Negative (Negative) Urine Glucose (UA) Negative (Negative) Urine Ketones Negative (Negative) Urine Occult Blood Negative (Negative) Urine Nitrite Negative (Negative) Urine Bilirubin Negative (Negative) Urine Urobilinogen 0.2 (0.2-1.0) Ur Leukocyte Esterase Negative (Negative) Urine RBC 0-5 (0-5) /hpf Urine WBC 0-5 (0-5) /hpf Ur Squamous Epith Cells 0-5 (0-5) /hpf Urine Bacteria Few (FEW) /hpf Urine Mucus Not seen (FEW) /hpf Med Orders - Current: Current Medications Albuterol (Albuterol 6.7 Gm Inhaler) 0 gm INH Q4H PRN PRN Reason: Shortness of Breath Bupropion HCl (Bupropion 150 Mg Tab.Er) 150 mg PO DAILY [facility] Last Admin: 04/23/21 10:55 Dose: 150 mg Documented by: Diclofenac Sodium (Diclofenac Sodium 1% Gel 100 Gm Tube) gm TOP TID PRN PRN Reason: Pain Enoxaparin Sodium (Enoxaparin 40 Mg/0.4 Ml Syringe) 40 mg SUBCUT DAILY [facility] Gabapentin (Gabapentin 600 Mg Tab) 600 mg PO TID [facility] Last Admin: 04/23/21 10:50 Dose: 600 mg Documented by: Gabapentin (Gabapentin 100 Mg Cap) 200 mg PO TID [facility] Last Admin: 04/23/21 10:49 Dose: 200 mg Documented by: Hydroxyzine HCl (Hydroxyzine Hcl 25 Mg Tab) 25 mg PO TID PRN PRN Reason: Allergies Last Admin: 04/23/21 11:04 Dose: 25 mg Documented by: Lisinopril (Lisinopril 20 Mg Tab) 20 mg PO DAILY [facility] Last Admin: 04/23/21 10:55 Dose: 20 mg Documented by: Lurasidone HCl (Lurasidone 80 Mg Tab) 40 mg PO DAILY [facility] Last Admin: 04/23/21 11:43 Dose: 40 mg Documented by: Metoprolol Tartrate (Metoprolol Tartrate 25 Mg Tab) 25 mg PO BID [facility] Last Admin: 04/23/21 10:53 Dose: 25 mg Documented by: Mirtazapine (Mirtazapine 15 Mg Tab) 15 mg PO BEDTIME [facility] Last Admin: 04/22/21 21:09 Dose: 15 mg Documented by: Montelukast Sodium (Montelukast 10 Mg Tab) 10 mg PO BEDTIME [facility] Last Admin: 04/22/21 21:10 Dose: 10 mg Documented by: Morphine Sulfate (Morphine 15 Mg Tab) 15 mg PO Q4H PRN PRN Reason: Pain (severe 7-10) Last Admin: 04/23/21 08:02 Dose: 15 mg Documented by: Morphine Sulfate (Morphine 2 Mg/Ml Syringe) 2 mg IVPUSH Q2H PRN PRN Reason: Pain (severe 7-10) Morphine Sulfate (Morphine 15 Mg Tab.Er) 30 mg PO BID [facility] Last Admin: 04/23/21 10:51 Dose: 30 mg Documented by: Mupirocin (Mupirocin Oint 22 Gm Tube) gm TOP TID [facility] Non-Formulary Medication (Calcium Carbonate/Vitamin D3 [Calcium 1,000 + D3 Caplet]) 1 tab PO BID [facility] Non-Formulary Medication (Fluticasone/Umeclidin/Vilanter) 1 puff PO DAILY [facility] Non-Formulary Medication (Lactulose) 30 ml PO ASDIRECTED [facility] Non-Formulary Medication (Linaclotide [Linzess]) 145 mcg PO DAILY [facility] Pantoprazole Sodium (Pantoprazole 40 Mg Tab.Cr) 40 mg PO ACBREAKFAST [facility] Last Admin: 04/23/21 07:54 Dose: 40 mg Documented by: Rosuvastatin Calcium (Rosuvastatin 10 Mg Tab) 10 mg PO BEDTIME [facility] Last Admin: 04/22/21 21:10 Dose: 10 mg Documented by: Senna/Docusate Sodium (Docusate Sodium/Sennosides 50-8.6 Mg Tab) 2 tab PO BEDTIME [facility] Last Admin: 04/22/21 21:07 Dose: 2 tab Documented by: Sodium Chloride (Sodium Chloride 0.9% 10 Ml Syringe) 10 ml FLUSH ASDIRECTED PRN PRN Reason: Keep Vein Open Last Admin: 04/22/21 09:48 Dose: 10 ml Documented by: Tizanidine HCl (Tizanidine 4 Mg Tab) 4 mg PO TID [facility] Last Admin: 04/23/21 10:50 Dose: 4 mg Documented by: Zolpidem Tartrate (Zolpidem 10 Mg Tab) 10 mg PO BEDTIME [facility] Last Admin: 04/22/21 21:10 Dose: 10 mg Documented by: Discontinued Medications Diphenhydramine HCl (Diphenhydramine 50 Mg/Ml Sdv) 25 mg IVPUSH ONETIME ONE Stop: 04/22/21 09:28 Last Admin: 04/22/21 09:40 Dose: 25 mg Documented by: Hydromorphone HCl (Hydromorphone 1 Mg/Ml Syringe) 1 mg IVPUSH ONETIME ONE Stop: 04/22/21 09:27 Last Admin: 04/22/21 09:47 Dose: 1 mg Documented by: Magnesium Sulfate 2 gm/ Premix 50 mls @ 25 mls/hr IV ONETIME ONE Stop: 04/22/21 20:54 Last Admin: 04/22/21 21:05 Dose: 25 mls/hr Documented by: Lurasidone HCl (Lurasidone 80 Mg Tab) 40 mg PO DAILY [facility] Last Admin: 04/23/21 12:04 Dose: Not Given Documented by: Metoclopramide HCl (Metoclopramide 10 Mg/2 Ml Sdv) 7.5 mg IVPUSH ONETIME ONE Stop: 04/22/21 09:27 Last Admin: 04/22/21 09:43 Dose: 7.5 mg Documented by: Morphine Sulfate (Morphine 15 Mg Tab.Er) 30 mg PO ONETIME ONE Stop: 04/22/21 15:38 Last Admin: 04/22/21 19:36 Dose: Not Given Documented by: Morphine Sulfate (Morphine 30 Mg Tab.Er) 30 mg PO BID [facility] Morphine Sulfate (Morphine 15 Mg Tab) 15 mg PO Q8H PRN PRN Reason: Pain (severe 7-10) - Exam Quality Assessment: No: Supplemental Oxygen General: Alert, Oriented HEENT: Pupils Equal, Mucous Membr. Moist/[place] Lungs: Clear to Auscultation, Normal Respiratory Effort Cardiovascular: Regular Rate, Regular Rhythm GI/Abdominal Exam: Normal Bowel Sounds, Soft, Non-Tender, No Distention Extremities: Non-Tender, Pedal Edema (Right leg and posterior splint) Skin: Warm, Dry, Intact Psy/Mental Status: Alert, Normal Affect, Normal Mood - Patient Data Lab Results Last 24 hrs: Laboratory Results - last 24 hr 04/22/21 Range/Units 21:38 Urine Color Yellow (Yellow) Urine Appearance Clear (Clear) Urine pH 7.5 (5.0-8.0) Ur Specific [place] 1.020 (1.005-1.030) Urine Protein Negative (Negative) Urine Glucose (UA) Negative (Negative) Urine Ketones Negative (Negative) Urine Occult Blood Negative (Negative) Urine Nitrite Negative (Negative) Urine Bilirubin Negative (Negative) Urine Urobilinogen 0.2 (0.2-1.0) Ur Leukocyte Esterase Negative (Negative) Urine RBC 0-5 (0-5) /hpf Urine WBC 0-5 (0-5) /hpf Ur Squamous Epith Cells 0-5 (0-5) /hpf Urine Bacteria Few (FEW) /hpf Urine Mucus Not seen (FEW) /hpf Result Diagrams: 04/22/21 09:33 04/22/21 09:33 Sepsis Event Note - Evaluation Sepsis Screening Result: No Definite Risk - Focused Exam Vital Signs: Vital Signs Temp Pulse Resp BP Pulse Ox Pulse Ox 04/23/21 10:55 155/76 H 04/23/21 10:53 66 155/76 H 04/23/21 09:41 99 04/23/21 07:34 98.4 F 58 L 17 142/61 H 96 04/23/21 03:39 98.2 F 57 L 12 134/54 L 100 - Problem List & Annotations (1) Chronic low back pain with right-sided sciatica SNOMED Code(s): 908247943 Code(s): M54.41 - LUMBAGO WITH SCIATICA, RIGHT SIDE; G89.29 - OTHER CHRONIC PAIN Status: Acute Current Visit: Yes Qualifiers: Back pain laterality: right Qualified Code(s): M54.41 - Lumbago with sciatica, right side; G89.29 - Other chronic pain (2) Fall as cause of accidental injury at home as place of occurrence SNOMED Code(s): 46408071 Code(s): W19.XXXA - UNSPECIFIED FALL, INITIAL ENCOUNTER; Y92.009 - UNSP PLACE IN [facility] NON-[facility] (PRIVATE) RESIDENCE PLACE Status: Acute Current Visit: Yes (3) Fracture of distal end of fibula SNOMED Code(s): 589348674 Code(s): S82.839A - OTH FRACTURE OF UPPER AND LOWER END OF UNSP FIBULA, INIT Status: Acute Current Visit: Yes Qualifiers: Encounter type: initial encounter Fracture type: closed Fracture morphology: other fracture Laterality: right Qualified Code(s): S82.831A - Other fracture of upper and lower end of right fibula, initial encounter for closed fracture (4) Obesity due to excess calories SNOMED Code(s): 922676358, 455779525 Code(s): E66.09 - OTHER OBESITY DUE TO EXCESS CALORIES Status: Acute Current Visit: Yes - Problem List Review Problem List Initiated/Reviewed/Updated: Yes - My Orders Last 24 Hours: My Active Orders 04/22/21 18:21 Code Status [Resuscitation Status] Routine 04/22/21 18:57 Morphine 15 mg PO Q4H PRN 04/22/21 19:04 Albuterol [Proventil HFA] 0 gm INH Q4H PRN Diclofenac Sodium [Voltaren 1% Gel] DOSE gm TOP TID PRN Morphine 2 mg IVPUSH Q2H PRN hydrOXYzine HCL [Atarax] 25 mg PO TID PRN 04/22/21 19:15 Lactulose 30 ml PO ASDIRECTED 04/22/21 21:00 Communication Order [RC] Q3HR Calcium Carbonate/Vitamin D3 [Calcium 1,000 + D3 Caplet] 1 tab PO BID Docusate Sodium/Sennosides [Senna Plus] 2 tab PO BEDTIME Gabapentin [Neurontin] 200 mg PO TID Gabapentin [Neurontin] 600 mg PO TID Metoprolol Tartrate [Lopressor] 25 mg PO BID Mirtazapine [Remeron] 15 mg PO BEDTIME Montelukast [Singulair] 10 mg PO BEDTIME Morphine [MS Contin] 30 mg PO BID Mupirocin Oint [Bactroban Oint] DOSE gm TOP TID Rosuvastatin [Crestor] 10 mg PO BEDTIME Zolpidem [Ambien] 10 mg PO BEDTIME tiZANidine [Zanaflex] 4 mg PO TID 04/22/21 22:48 Oxygen Therapy [RC] ASDIRECTED 04/23/21 06:00 Pantoprazole [ProTONIX] 40 mg PO ACBREAKFAST 04/23/21 08:20 Weight bearing status [OM.PC] Routine 04/23/21 09:00 Fluticasone/Umeclidin/Vilanter 1 puff PO DAILY Linaclotide [Linzess] 145 mcg PO DAILY buPROPion [Wellbutrin XL] 150 mg PO DAILY lisinopriL [Prinivil] 20 mg PO DAILY 04/23/21 09:28 RT Incentive Spirometry [RC] ASDIRECTED 04/23/21 Lunch Regular Diet [DIET] 04/23/21 11:30 Lurasidone [Latuda] 40 mg PO DAILY 04/23/21 12:45 Enoxaparin [Lovenox] 40 mg SUBCUT DAILY 04/24/21 05:11 CBC WITH AUTO DIFF [HEME] AM - Plan Plan:: 65-year-old obese female with chronic pain syndrome, chronic low back pain secondary to spinal stenosis, fibromyalgia, and bipolar disorder admitted to the hospital secondary to right distal fibular fracture. 04/22/2021dmission Right distal fibular fracture * No distal neurovascular compromise * Patient placed in a posterior splint by emergency department * She will need to follow-up with Ortho 5 to 7 days for definitive care * She was unable to return to home secondary to inability to ambulate on that ankle. She will need skilled care facility until she is able to get around. * Placement cannot be obtained in the emergency department. Chronic pain syndrome, chronic low back pain, fibromyalgia * Patient is on long-acting and short acting morphine for pain. * Also on gabapentin, Zanaflex * Pain will be worse and hard to control secondary to chronic narcotic therapy. Bipolar disorder * Patient is on Latuda, bupropion, Remeron Hypertension * Blood pressure well controlled in the emergency department * On metoprolol and lisinopril. 04/23/2021 Patient had a good evening. She is doing well on her home morphine just more frequently. Patient is eating well and had a bowel movement. Physical therapy will be started. Plan on discharge as soon as a bed becomes available. Plan * Admit to medical floor awaiting placement * Morphine 15 mg p.o. every 4 hours as needed * Morphine 2 mg IV every 2 hours as needed for severe pain. Prefer using oral morphine over IV. * Physical therapy. Toe-touch weightbearing for now. * [facility] checks to right lower extremity every 3 hours VTE prophylaxis with Lovenox CODE STATUS: Full code
[2021-04-23] MEDS: Enoxaparin 40 MG/0.4 ML Syringe SUBCUT SCH (14:04)
[2021-04-23] MEDS: Mupirocin Oint 22 GM Tube TOP SCH ×3 (14:33→20:51)
[2021-04-23] MEDS: Zolpidem 10 MG Tab PO SCH (20:50)
[2021-04-23] MEDS: Rosuvastatin 10 MG Tab PO SCH (20:51)
[2021-04-23] MEDS: Montelukast 10 MG Tab PO SCH (20:54)
[2021-04-23] MEDS: Mirtazapine 15 MG Tab PO SCH (20:54)
[2021-04-24] MEDS: Pantoprazole 40 MG Tab.CR PO SCH (05:19)
[2021-04-24] MEDS: Morphine 15 MG Tab.ER PO SCH ×2 (08:32→20:09)
[2021-04-24] MEDS: Lisinopril 20 MG Tab PO SCH (08:33)
[2021-04-24] MEDS: buPROPion 150 MG Tab.ER PO SCH (08:33)
[2021-04-24] MEDS: Gabapentin 100 MG Cap PO SCH ×3 (08:36→20:10)
[2021-04-24] MEDS: Metoprolol Tartrate 25 MG Tab PO SCH ×2 (08:36→20:12)
[2021-04-24] MEDS: Mupirocin Oint 22 GM Tube TOP SCH ×3 (08:37→20:12)
[2021-04-24] MEDS: tiZANidine 4 MG Tab PO SCH ×3 (08:37→20:11)
[2021-04-24] MEDS: Enoxaparin 40 MG/0.4 ML Syringe SUBCUT SCH (08:37)
[2021-04-24] MEDS: Gabapentin 600 MG Tab PO SCH ×3 (08:39→20:11)
[2021-04-24] MEDS ORDERED: Lactulose Soln 10 GM/15 ML 30 ML UD Cup PO SCH (09:00)
[2021-04-24] MEDS: Morphine 15 MG Tab PO PRN ×2 (11:55→20:09)
--- NOTE | 2021-04-24 15:37 | PCM.PN ---
- General Info Date of Service: 04/24/21 Admission Dx/Problem (Free Text): Admission Diagnosis/Problem Admission Diagnosis/Problem Fall as cause of accidental injury in home as place of occurrence Subjective Update: Patient states that she is feeling well. There is no complaints this morning except for moderate right ankle pain. Functional Status: Denies: Pain Controlled - Review of Systems General: Reports: No Symptoms HEENT: Reports: No Symptoms Pulmonary: Reports: No Symptoms Cardiovascular: Reports: No Symptoms Gastrointestinal: Reports: No Symptoms Musculoskeletal: Reports: Foot Pain, Joint Pain - Patient Data Vitals - Most Recent: Last Vital Signs Temp 97.9 F 04/24/21 14:13 Pulse 43 L 04/24/21 14:13 Resp 18 04/24/21 14:13 BP 118/43 L 04/24/21 14:13 Pulse Ox 100 04/24/21 14:13 Weight - Most Recent: 254 lb 12.8 oz I&O - Last 24 Hours: Intake & Output 04/24/21 04/24/21 04/24/21 06:59 14:59 22:59 Intake Total 175 Output Total Balance 175 Lab Results Last 24 Hours: Laboratory Results - last 24 hr 04/24/21 Range/Units 05:15 WBC 9.91 (3.98-10.04) K/mm3 RBC 4.64 (3.98-5.22) M/mm3 Hgb 12.7 (11.2-15.7) gm/dl Hct 41.4 (34.1-44.9) % MCV 89.2 (79.4-94.8) fl MCH 27.4 (25.6-32.2) pg MCHC 30.7 L (32.2-35.5) g/dl RDW Std Deviation 45.1 (36.4-46.3) fL Plt Count 280 (182-369) K/mm3 MPV 9.3 L (9.4-12.3) fl Neut % (Auto) 57.5 (34.0-71.1) % Lymph % (Auto) 31.3 (19.3-51.7) % [place] % (Auto) 9.6 (4.7-12.5) % Eos % (Auto) 1.2 (0.7-5.8) Baso % (Auto) 0.2 (0.1-1.2) % Neut # (Auto) 5.70 (1.56-6.13) K/mm3 Lymph # (Auto) 3.10 (1.18-3.74) K/mm3 [place] # (Auto) 0.95 H (0.24-0.36) K/mm3 Eos # (Auto) 0.12 (0.04-0.36) K/mm3 Baso # (Auto) 0.02 (0.01-0.08) K/mm3 Syd Results Last 24 Hours: Microbiology 04/22/21 09:25 Blood Culture - Preliminary Blood - Venous - Lab Draw 04/22/21 09:33 Blood Culture - Preliminary Blood - Venous Med Orders - Current: Current Medications Albuterol (Albuterol 6.7 Gm Inhaler) 0 gm INH Q4H PRN PRN Reason: Shortness of Breath Bupropion HCl (Bupropion 150 Mg Tab.Er) 150 mg PO DAILY [facility] Last Admin: 04/24/21 08:33 Dose: 150 mg Documented by: Enoxaparin Sodium (Enoxaparin 40 Mg/0.4 Ml Syringe) 40 mg SUBCUT DAILY [facility] Last Admin: 04/24/21 08:37 Dose: 40 mg Documented by: Gabapentin (Gabapentin 600 Mg Tab) 600 mg PO TID [facility] Last Admin: 04/24/21 08:39 Dose: 600 mg Documented by: Gabapentin (Gabapentin 100 Mg Cap) 200 mg PO TID [facility] Last Admin: 04/24/21 08:36 Dose: 200 mg Documented by: Hydroxyzine HCl (Hydroxyzine Hcl 25 Mg Tab) 25 mg PO TID PRN PRN Reason: Allergies Last Admin: 04/23/21 11:04 Dose: 25 mg Documented by: Lactulose (Lactulose Soln 10 Gm/15 Ml 30 Ml Ud Cup) 30 gm PO Q72H [facility] Last Admin: 04/24/21 08:48 Dose: Not Given Documented by: Lisinopril (Lisinopril 20 Mg Tab) 20 mg PO DAILY [facility] Last Admin: 04/24/21 08:33 Dose: 20 mg Documented by: Lurasidone HCl (Lurasidone 80 Mg Tab) 40 mg PO DAILY [facility] Last Admin: 04/24/21 08:37 Dose: 40 mg Documented by: Metoprolol Tartrate (Metoprolol Tartrate 25 Mg Tab) 25 mg PO BID [facility] Last Admin: 04/24/21 08:36 Dose: 25 mg Documented by: Mirtazapine (Mirtazapine 15 Mg Tab) 15 mg PO BEDTIME [facility] Last Admin: 04/23/21 20:54 Dose: 15 mg Documented by: Montelukast Sodium (Montelukast 10 Mg Tab) 10 mg PO BEDTIME [facility] Last Admin: 04/23/21 20:54 Dose: 10 mg Documented by: Morphine Sulfate (Morphine 15 Mg Tab) 15 mg PO Q4H PRN PRN Reason: Pain (severe 7-10) Last Admin: 04/24/21 11:55 Dose: 15 mg Documented by: Morphine Sulfate (Morphine 2 Mg/Ml Syringe) 2 mg IVPUSH Q2H PRN PRN Reason: Pain (severe 7-10) Morphine Sulfate (Morphine 15 Mg Tab.Er) 30 mg PO BID [facility] Last Admin: 04/24/21 08:32 Dose: 30 mg Documented by: Mupirocin (Mupirocin Oint 22 Gm Tube) 0 gm TOP TID [facility] Last Admin: 04/24/21 08:37 Dose: 1 applic Documented by: Pantoprazole Sodium (Pantoprazole 40 Mg Tab.Cr) 40 mg PO ACBREAKFAST [facility] Last Admin: 04/24/21 05:19 Dose: 40 mg Documented by: (Fluticasone/Umeclidin/Vilanter 1 Each *Pt Own Med* 0 each PO DAILY [facility] Last Admin: 04/24/21 09:13 Dose: 1 each Documented by: (Linaclotide [ Linzess] 145 Mcg Cap )*Pt Own Med* 0 each PO DAILY [facility] Last Admin: 04/24/21 08:38 Dose: 1 each Documented by: Rosuvastatin Calcium (Rosuvastatin 10 Mg Tab) 10 mg PO BEDTIME [facility] Last Admin: 04/23/21 20:51 Dose: 10 mg Documented by: Senna/Docusate Sodium (Docusate Sodium/Sennosides 50-8.6 Mg Tab) 2 tab PO BEDTIME [facility] Last Admin: 04/23/21 20:54 Dose: 2 tab Documented by: Sodium Chloride (Sodium Chloride 0.9% 10 Ml Syringe) 10 ml FLUSH ASDIRECTED PRN PRN Reason: Keep Vein Open Last Admin: 04/22/21 09:48 Dose: 10 ml Documented by: Tizanidine HCl (Tizanidine 4 Mg Tab) 4 mg PO TID [facility] Last Admin: 04/24/21 08:37 Dose: 4 mg Documented by: Zolpidem Tartrate (Zolpidem 10 Mg Tab) 10 mg PO BEDTIME [facility] Last Admin: 04/23/21 20:50 Dose: 10 mg Documented by: Discontinued Medications Diclofenac Sodium (Diclofenac Sodium 1% Gel 100 Gm Tube) gm TOP TID PRN PRN Reason: Pain Diphenhydramine HCl (Diphenhydramine 50 Mg/Ml Sdv) 25 mg IVPUSH ONETIME ONE Stop: 04/22/21 09:28 Last Admin: 04/22/21 09:40 Dose: 25 mg Documented by: Hydromorphone HCl (Hydromorphone 1 Mg/Ml Syringe) 1 mg IVPUSH ONETIME ONE Stop: 04/22/21 09:27 Last Admin: 04/22/21 09:47 Dose: 1 mg Documented by: Magnesium Sulfate 2 gm/ Premix 50 mls @ 25 mls/hr IV ONETIME ONE Stop: 04/22/21 20:54 Last Admin: 04/22/21 21:05 Dose: 25 mls/hr Documented by: Lurasidone HCl (Lurasidone 80 Mg Tab) 40 mg PO DAILY [facility] Last Admin: 04/23/21 12:04 Dose: Not Given Documented by: Metoclopramide HCl (Metoclopramide 10 Mg/2 Ml Sdv) 7.5 mg IVPUSH ONETIME ONE Stop: 04/22/21 09:27 Last Admin: 04/22/21 09:43 Dose: 7.5 mg Documented by: Morphine Sulfate (Morphine 15 Mg Tab.Er) 30 mg PO ONETIME ONE Stop: 04/22/21 15:38 Last Admin: 04/22/21 19:36 Dose: Not Given Documented by: Morphine Sulfate (Morphine 30 Mg Tab.Er) 30 mg PO BID [facility] Morphine Sulfate (Morphine 15 Mg Tab) 15 mg PO Q8H PRN PRN Reason: Pain (severe 7-10) Non-Formulary Medication (Calcium Carbonate/Vitamin D3 [Calcium 1,000 + D3 Caplet]) 1 tab PO BID [facility] Last Admin: 04/23/21 16:47 Dose: Not Given Documented by: - Exam Quality Assessment: Supplemental Oxygen General: Alert, Oriented HEENT: Pupils Equal, Mucous Membr. Moist/[place] Neck: Supple Lungs: Normal Respiratory Effort, Crackles Cardiovascular: Regular Rate, Regular Rhythm GI/Abdominal Exam: Normal Bowel Sounds, Soft, Non-Tender, No Distention Extremities: Other (Right lower extremity posterior splint) - Patient Data Lab Results Last 24 hrs: Laboratory Results - last 24 hr 04/24/21 Range/Units 05:15 WBC 9.91 (3.98-10.04) K/mm3 RBC 4.64 (3.98-5.22) M/mm3 Hgb 12.7 (11.2-15.7) gm/dl Hct 41.4 (34.1-44.9) % MCV 89.2 (79.4-94.8) fl MCH 27.4 (25.6-32.2) pg MCHC 30.7 L (32.2-35.5) g/dl RDW Std Deviation 45.1 (36.4-46.3) fL Plt Count 280 (182-369) K/mm3 MPV 9.3 L (9.4-12.3) fl Neut % (Auto) 57.5 (34.0-71.1) % Lymph % (Auto) 31.3 (19.3-51.7) % [place] % (Auto) 9.6 (4.7-12.5) % Eos % (Auto) 1.2 (0.7-5.8) Baso % (Auto) 0.2 (0.1-1.2) % Neut # (Auto) 5.70 (1.56-6.13) K/mm3 Lymph # (Auto) 3.10 (1.18-3.74) K/mm3 [place] # (Auto) 0.95 H (0.24-0.36) K/mm3 Eos # (Auto) 0.12 (0.04-0.36) K/mm3 Baso # (Auto) 0.02 (0.01-0.08) K/mm3 Result Diagrams: 04/24/21 05:15 04/22/21 09:33 Syd Results Last 24 hrs: Microbiology 04/22/21 09:25 Blood Culture - Preliminary Blood - Venous - Lab Draw 04/22/21 09:33 Blood Culture - Preliminary Blood - Venous Sepsis Event Note - Evaluation Sepsis Screening Result: No Definite Risk - Focused Exam Vital Signs: Vital Signs Temp Pulse Resp BP Pulse Ox Pulse Ox 04/24/21 14:13 97.9 F 43 L 18 118/43 L 100 04/24/21 09:13 99 04/24/21 08:36 59 L 141/53 H 04/24/21 08:35 141/53 H 04/24/21 08:33 141/53 H 04/24/21 08:17 97.9 F 59 L 20 133/39 L 97 04/24/21 05:16 98.2 F 51 L 13 123/42 L 100 - Problem List & Annotations (1) Chronic low back pain with right-sided sciatica SNOMED Code(s): 261731137 Code(s): M54.41 - LUMBAGO WITH SCIATICA, RIGHT SIDE; G89.29 - OTHER CHRONIC PAIN Status: Acute Current Visit: Yes Qualifiers: Back pain laterality: right Qualified Code(s): M54.41 - Lumbago with sciatica, right side; G89.29 - Other chronic pain (2) Fall as cause of accidental injury at home as place of occurrence SNOMED Code(s): 93371205 Code(s): W19.XXXA - UNSPECIFIED FALL, INITIAL ENCOUNTER; Y92.009 - [facility]SP PL[facility] NON-[facility] (PRIVATE[facility] RESIDENCE PLACE Status: Acute Current Visit: Yes (3) Fracture of distal end of fibula SNOMED Code(s): 527126940 Code(s): S82.839A - OTH FRACTURE OF UPPER AND LOWER END OF UNSP FIBULA, INIT Status: Acute Current Visit: Yes Qualifiers: Encounter type: initial encounter Fracture type: closed Fracture morphology: other fracture Laterality: right Qualified Code(s): S82.831A - Other fracture of upper and lower end of right fibula, initial encounter for closed fracture (4) Obesity due to excess calories SNOMED Code(s): 536036469, 316759187 Code(s): E66.09 - OTHER OBESITY DUE TO EXCESS CALORIES Status: Acute Current Visit: Yes - Problem List Review Problem List Initiated/Reviewed/Updated: Yes - My Orders Last 24 Hours: My Active Orders 04/24/21 07:00 PT Evaluation and Treatment [CONS] Routine 04/24/21 09:00 Lactulose [Cephulac] 30 gm PO Q72H Patient's Own Medication [Ptom] 0 each PO DAILY Patient's Own Medication [Ptom] 0 each PO DAILY - Plan Plan:: 65-year-old obese female with chronic pain syndrome, chronic low back pain sec ondary to spinal stenosis, fibromyalgia, and bipolar disorder admitted to the hospital secondary to right distal fibular fracture. 04/22/2021dmission Right distal fibular fracture * No distal neurovascular compromise * Patient placed in a posterior splint by emergency department * She will need to follow-up with Ortho 5 to 7 days for definitive care * She was unable to return to home secondary to inability to ambulate on that ankle. She will need skilled care facility until she is able to get around. * Placement cannot be obtained in the emergency department. Chronic pain syndrome, chronic low back pain, fibromyalgia * Patient is on long-acting and short acting morphine for pain. * Also on gabapentin, Zanaflex * Pain will be worse and hard to control secondary to chronic narcotic therapy. Bipolar disorder * Patient is on Latuda, bupropion, Remeron Hypertension * Blood pressure well controlled in the emergency department * On metoprolol and lisinopril. 04/23/2021 Patient had a good evening. She is doing well on her home morphine just more frequently. Patient is eating well and had a bowel movement. Physical therapy will be started. Plan on discharge as soon as a bed becomes available. 04/24/2021 No change in patient's condition. She continues to have moderate amount of pain in that right ankle. Oral morphine has been helping the pain. Appetite is good no changes in care. Plan is to discharge to intermediate facility when available. Plan * Admit to medical floor awaiting placement * Morphine 15 mg p.o. every 4 hours as needed * Morphine 2 mg IV every 2 hours as needed for severe pain. Prefer using oral morphine over IV. * Physical therapy. Toe-touch weightbearing for now. * [facility] checks to right lower extremity every 3 hours * Awaiting bed at intermediate facility. VTE prophylaxis with Lovenox CODE STATUS: Full code
[2021-04-24] MEDS: hydrOXYzine HCl 25 MG Tab PO PRN (17:20)
[2021-04-24] MEDS: Zolpidem 10 MG Tab PO SCH (20:08)
[2021-04-24] MEDS: Rosuvastatin 10 MG Tab PO SCH (20:08)
[2021-04-24] MEDS: Mirtazapine 15 MG Tab PO SCH (20:08)
[2021-04-24] MEDS: Montelukast 10 MG Tab PO SCH (20:11)
[2021-04-25] MEDS: Pantoprazole 40 MG Tab.CR PO SCH ×2 (04:39→06:07)
[2021-04-25] MEDS: Morphine 15 MG Tab PO PRN ×3 (04:39→19:57)
--- NOTE | 2021-04-25 08:05 | PCM.PN ---
<Marco Dawson - Last Filed: 04/25/21 10:41> - General Info Date of Service: 04/25/21 Admission Dx/Problem (Free Text): Admission Diagnosis/Problem Admission Diagnosis/Problem Fall as cause of accidental injury in home as place of occurrence Functional Status: Reports: Pain Controlled, Tolerating Diet, Ambulating, Urinating, Incentive Spirometry. Denies: New Symptoms - Review of Systems General: Reports: No Symptoms. Denies: Fever, Weakness, Fatigue, Malaise, Chills HEENT: Reports: No Symptoms. Denies: Headaches, Sore Throat Pulmonary: Reports: No Symptoms. Denies: Shortness of Breath, Cough, Sputum Cardiovascular: Reports: No Symptoms. Denies: Chest Pain, Palpitations, Dyspnea on Exertion Gastrointestinal: Reports: No Symptoms. Denies: Abdominal Pain, Constipation, Diarrhea, Nausea, Vomiting Genitourinary: Reports: No Symptoms Musculoskeletal: Reports: Leg Pain (right ) Skin: Reports: No Symptoms. Denies: Cyanosis Neurological: Reports: No Symptoms, Difficulty Walking, Gait Disturbance. Denies: Confusion, Dizziness, Headache, Numbness, Syncope, Tingling, Weakness Psychiatric: Reports: No Symptoms - Patient Data Vitals - Most Recent: Last Vital Signs Temp 98.1 F 04/25/21 04:18 Pulse 50 L 04/25/21 04:18 Resp 16 04/25/21 04:18 BP 141/53 H 04/25/21 04:18 Pulse Ox 97 04/25/21 04:18 Weight - Most Recent: 255 lb 6.4 oz I&O - Last 24 Hours: Intake & Output 04/24/21 04/25/21 04/25/21 22:59 06:59 14:59 Intake Total 400 800 Output Total 900 950 Balance -500 -150 Med Orders - Current: Current Medications Albuterol (Albuterol 6.7 Gm Inhaler) 0 gm INH Q4H PRN PRN Reason: Shortness of Breath Last Admin: 04/24/21 16:49 Dose: 2 puff Documented by: Bupropion HCl (Bupropion 150 Mg Tab.Er) 150 mg PO DAILY [facility] Last Admin: 04/24/21 08:33 Dose: 150 mg Documented by: Enoxaparin Sodium (Enoxaparin 40 Mg/0.4 Ml Syringe) 40 mg SUBCUT DAILY [facility] Last Admin: 04/24/21 08:37 Dose: 40 mg Documented by: Gabapentin (Gabapentin 600 Mg Tab) 600 mg PO TID [facility] Last Admin: 04/24/21 20:11 Dose: 600 mg Documented by: Gabapentin (Gabapentin 100 Mg Cap) 200 mg PO TID [facility] Last Admin: 04/24/21 20:10 Dose: 200 mg Documented by: Hydroxyzine HCl (Hydroxyzine Hcl 25 Mg Tab) 25 mg PO TID PRN PRN Reason: Allergies Last Admin: 04/24/21 17:20 Dose: 25 mg Documented by: Lactulose (Lactulose Soln 10 Gm/15 Ml 30 Ml Ud Cup) 30 gm PO Q72H [facility] Last Admin: 04/24/21 08:48 Dose: Not Given Documented by: Lisinopril (Lisinopril 20 Mg Tab) 20 mg PO DAILY [facility] Last Admin: 04/24/21 08:33 Dose: 20 mg Documented by: Lurasidone HCl (Lurasidone 80 Mg Tab) 40 mg PO DAILY [facility] Last Admin: 04/24/21 08:37 Dose: 40 mg Documented by: Metoprolol Tartrate (Metoprolol Tartrate 25 Mg Tab) 25 mg PO BID [facility] Last Admin: 04/24/21 20:12 Dose: 25 mg Documented by: Mirtazapine (Mirtazapine 15 Mg Tab) 15 mg PO BEDTIME [facility] Last Admin: 04/24/21 20:08 Dose: 15 mg Documented by: Montelukast Sodium (Montelukast 10 Mg Tab) 10 mg PO BEDTIME [facility] Last Admin: 04/24/21 20:11 Dose: 10 mg Documented by: Morphine Sulfate (Morphine 15 Mg Tab) 15 mg PO Q4H PRN PRN Reason: Pain (severe 7-10) Last Admin: 04/25/21 04:39 Dose: 15 mg Documented by: Morphine Sulfate (Morphine 2 Mg/Ml Syringe) 2 mg IVPUSH Q2H PRN PRN Reason: Pain (severe 7-10) Morphine Sulfate (Morphine 15 Mg Tab.Er) 30 mg PO BID [facility] Last Admin: 04/24/21 20:09 Dose: 30 mg Documented by: Mupirocin (Mupirocin Oint 22 Gm Tube) 0 gm TOP TID [facility] Last Admin: 04/24/21 20:12 Dose: 1 applic Documented by: Pantoprazole Sodium (Pantoprazole 40 Mg Tab.Cr) 40 mg PO ACBREAKFAST [facility] Last Admin: 04/25/21 06:07 Dose: Not Given Documented by: (Fluticasone/Umeclidin/Vilanter 1 Each *Pt Own Med* 0 each PO DAILY [facility] Last Admin: 04/24/21 09:13 Dose: 1 each Documented by: (Linaclotide [ Linzess] 145 Mcg Cap )*Pt Own Med* 0 each PO DAILY [facility] Last Admin: 04/24/21 08:38 Dose: 1 each Documented by: Rosuvastatin Calcium (Rosuvastatin 10 Mg Tab) 10 mg PO BEDTIME [facility] Last Admin: 04/24/21 20:08 Dose: 10 mg Documented by: Senna/Docusate Sodium (Docusate Sodium/Sennosides 50-8.6 Mg Tab) 2 tab PO BEDTIME [facility] Last Admin: 04/24/21 20:11 Dose: 2 tab Documented by: Sodium Chloride (Sodium Chloride 0.9% 10 Ml Syringe) 10 ml FLUSH ASDIRECTED PRN PRN Reason: Keep Vein Open Last Admin: 04/22/21 09:48 Dose: 10 ml Documented by: Tizanidine HCl (Tizanidine 4 Mg Tab) 4 mg PO TID [facility] Last Admin: 04/24/21 20:11 Dose: 4 mg Documented by: Zolpidem Tartrate (Zolpidem 10 Mg Tab) 10 mg PO BEDTIME [facility] Last Admin: 04/24/21 20:08 Dose: 10 mg Documented by: Discontinued Medications Diclofenac Sodium (Diclofenac Sodium 1% Gel 100 Gm Tube) gm TOP TID PRN PRN Reason: Pain Diphenhydramine HCl (Diphenhydramine 50 Mg/Ml Sdv) 25 mg IVPUSH ONETIME ONE Stop: 04/22/21 09:28 Last Admin: 04/22/21 09:40 Dose: 25 mg Documented by: Hydromorphone HCl (Hydromorphone 1 Mg/Ml Syringe) 1 mg IVPUSH ONETIME ONE Stop: 04/22/21 09:27 Last Admin: 04/22/21 09:47 Dose: 1 mg Documented by: Magnesium Sulfate 2 gm/ Premix 50 mls @ 25 mls/hr IV ONETIME ONE Stop: 04/22/21 20:54 Last Admin: 04/22/21 21:05 Dose: 25 mls/hr Documented by: Lurasidone HCl (Lurasidone 80 Mg Tab) 40 mg PO DAILY [facility] Last Admin: 04/23/21 12:04 Dose: Not Given Documented by: Metoclopramide HCl (Metoclopramide 10 Mg/2 Ml Sdv) 7.5 mg IVPUSH ONETIME ONE Stop: 04/22/21 09:27 Last Admin: 04/22/21 09:43 Dose: 7.5 mg Documented by: Morphine Sulfate (Morphine 15 Mg Tab.Er) 30 mg PO ONETIME ONE Stop: 04/22/21 15:38 Last Admin: 04/22/21 19:36 Dose: Not Given Documented by: Morphine Sulfate (Morphine 30 Mg Tab.Er) 30 mg PO BID [facility] Morphine Sulfate (Morphine 15 Mg Tab) 15 mg PO Q8H PRN PRN Reason: Pain (severe 7-10) Non-Formulary Medication (Calcium Carbonate/Vitamin D3 [Calcium 1,000 + D3 Caplet]) 1 tab PO BID [facility] Last Admin: 04/23/21 16:47 Dose: Not Given Documented by: - Exam Quality Assessment: Supplemental Oxygen (3L - home baseline ), DVT Prophylaxis. No: Urine Catheter General: Alert, Oriented, Cooperative, No Acute Distress HEENT: Pupils Equal, Pupils Reactive, Mucous Membr. Moist/[place] Neck: Supple, Trachea Midline Lungs: Normal Respiratory Effort, Crackles Cardiovascular: Regular Rate, Regular Rhythm GI/Abdominal Exam: Normal Bowel Sounds, Soft, Non-Tender, No Distention (Female) Exam: Deferred Back Exam: Normal Inspection, Full Range of Motion Extremities: Non-Tender, No Pedal Edema, Normal Capillary Refill, Leg Pain, Limited Range of Motion, Other (Posterior splint in placeo on RLE. Good CMS noted. ) Peripheral Pulses: 2+: Radial (L), Radial (R), Dorsalis Pedis (L), Dorsalis Pedis (R) Skin: Warm, Dry, Intact Neurological: No New Focal Deficit Psy/Mental Status: Alert, Normal Affect, Normal Mood - Patient Data Result Diagrams: 04/24/21 05:15 04/22/21 09:33 Sepsis Event Note - Evaluation Sepsis Screening Result: No Definite Risk - Focused Exam Vital Signs: Vital Signs Temp Pulse Resp BP Pulse Ox 04/25/21 04:18 98.1 F 50 L 16 141/53 H 97 04/24/21 20:14 98.2 F 59 L 13 145/50 H 96 04/24/21 20:12 61 114/50 L - Problem List & Annotations (1) Bipolar disorder SNOMED Code(s): 17302064 Code(s): F31.9 - BIPOLAR DISORDER, UNSPECIFIED Status: Chronic Priority: Low Current Visit: No Qualifiers: Active/Remission status: remission status unspecified Qualified Code(s): F31.9 - Bipolar disorder, unspecified (2) Chronic low back pain with right-sided sciatica SNOMED Code(s): 178794015 Code(s): M54.41 - LUMBAGO WITH SCIATICA, RIGHT SIDE; G89.29 - OTHER CHRONIC PAIN Status: Chronic Priority: Low Current Visit: Yes Qualifiers: Back pain laterality: right Qualified Code(s): M54.41 - Lumbago with sciatica, right side; G89.29 - Other chronic pain (3) Chronic pain syndrome SNOMED Code(s): 491469064 Code(s): G89.4 - CHRONIC PAIN SYNDROME Status: Chronic Priority: Medium Current Visit: No (4) Fall as cause of accidental injury at home as place of occurrence SNOMED Code(s): 80174020 Code(s): W19.XXXA - UNSPECIFIED FALL, INITIAL ENCOUNTER; Y92.009 - UNSP PLACE IN UNSP NON-INSTITUT (PRIVATE) RESIDENCE PLACE Status: Acute Priority: High Current Visit: Yes Qualifiers: Encounter type: initial encounter Qualified Code(s): W19.XXXA - Unspecified fall, initial encounter; Y92.009 - Unspecified place in unspecified non- institutional (private) residence as the place of occurrence of the external cause (5) Fracture of distal end of fibula SNOMED Code(s): 785948671 Code(s): S82.839A - OTH FRACTURE OF UPPER AND LOWER END OF UNSP FIBULA, INIT Status: Acute Priority: High Current Visit: Yes Qualifiers: Encounter type: initial encounter Fracture type: closed Fracture morphology: other fracture Laterality: right Qualified Code(s): S82.831A - Other fracture of upper and lower end of right fibula, initial encounter for closed fracture (6) Fibromyalgia SNOMED Code(s): 542612697 Code(s): M79.7 - FIBROMYALGIA Status: Chronic Priority: Medium Current Visit: No (7) Hypertension SNOMED Code(s): 84746607 Code(s): I10 - ESSENTIAL (PRIMARY) HYPERTENSION Status: Chronic Priority: Medium Current Visit: No Qualifiers: Hypertension type: unspecified Qualified Code(s): I10 - Essential (primary) hypertension - Problem List Review Problem List Initiated/Reviewed/Updated: Yes - My Orders Last 24 Hours: My Active Orders 04/25/21 06:49 Consult to Case Management/Conditioning Yard Supervisor [CONS] Routine - Plan Plan:: 65-year-old obese female with chronic pain syndrome, chronic low back pain secondary to spinal stenosis, fibromyalgia, and bipolar disorder admitted to the hospital secondary to right distal fibular fracture. 04/22/2021dmission Right distal fibular fracture * No distal neurovascular compromise * Patient placed in a posterior splint by emergency department * She will need to follow-up with Ortho 5 to 7 days for definitive care * She was unable to return to home secondary to inability to ambulate on that ankle. She will need skilled care facility until she is able to get around. * Placement cannot be obtained in the emergency department. Chronic pain syndrome, chronic low back pain, fibromyalgia * Patient is on long-acting and short acting morphine for pain. * Also on gabapentin, Zanaflex * Pain will be worse and hard to control secondary to chronic narcotic therapy. Bipolar disorder * Patient is on Latuda, bupropion, Remeron Hypertension * Blood pressure well controlled in the emergency department * On metoprolol and lisinopril. 04/23/2021 Patient had a good evening. She is doing well on her home morphine just more frequently. Patient is eating well and had a bowel movement. Physical therapy will be started. Plan on discharge as soon as a bed becomes available. 04/24/2021 No change in patient's condition. She continues to have moderate amount of pain in that right ankle. Oral morphine has been helping the pain. Appetite is good no changes in care. Plan is to discharge to correction facility when available. 04/25/2021 Patient continues to do quite well. Splint remains in place on leg. Social work consulted and working on placement. Pain has been controlled. No labs obtained today as patient has been very stable. Plan will be to discharge to SNF locally for rehab stay. Per patient her daughter is planning to move her to an assisted living facility in [place] near her doctors after completion of rehab stay. We will discharge once placement is set up. Plan * Admit to medical floor awaiting placement * Morphine 15 mg p.o. every 4 hours as needed * Morphine 2 mg IV every 2 hours as needed for severe pain. Prefer using oral morphine over IV. * Physical therapy. Toe-touch weightbearing for now. * CMS checks to right lower extremity every 3 hours * Awaiting bed at correction facility. * Continue home medications as ordered * SW/CM consultation VTE prophylaxis with Lovenox CODE STATUS: Full code <Geoff Banerjee Jr - Last Filed: 04/25/21 19:10> - Patient Data Vitals - Most Recent: Last Vital Signs Temp 97.9 F 04/25/21 17:35 Pulse 56 L 04/25/21 17:35 Resp 16 04/25/21 17:35 BP 99/49 L 04/25/21 17:35 Pulse Ox 98 04/25/21 17:35 I&O - Last 24 Hours: Intake & Output 04/25/21 04/25/21 04/25/21 06:59 14:59 22:59 Intake Total 800 480 Output Total 950 425 250 Balance -150 -425 230 Med Orders - Current: Current Medications Albuterol (Albuterol 6.7 Gm Inhaler) 0 gm INH Q4H PRN PRN Reason: Shortness of Breath Last Admin: 04/24/21 16:49 Dose: 2 puff Documented by: Bupropion HCl (Bupropion 150 Mg Tab.Er) 150 mg PO DAILY [facility] Last Admin: 04/25/21 08:49 Dose: 150 mg Documented by: Diclofenac Sodium (Diclofenac Sodium 1% Gel 100 Gm Tube) 0 gm TOP Q6H PRN PRN Reason: Pain Enoxaparin Sodium (Enoxaparin 40 Mg/0.4 Ml Syringe) 40 mg SUBCUT DAILY [facility] Last Admin: 04/25/21 08:47 Dose: 40 mg Documented by: Gabapentin (Gabapentin 600 Mg Tab) 600 mg PO TID [facility] Last Admin: 04/25/21 15:04 Dose: 600 mg Documented by: Gabapentin (Gabapentin 100 Mg Cap) 200 mg PO TID [facility] Last Admin: 04/25/21 15:04 Dose: 200 mg Documented by: Hydroxyzine HCl (Hydroxyzine Hcl 25 Mg Tab) 25 mg PO TID PRN PRN Reason: Allergies Last Admin: 04/25/21 08:52 Dose: 25 mg Documented by: Lactulose (Lactulose Soln 10 Gm/15 Ml 30 Ml Ud Cup) 20 gm PO Q72H [facility] Lisinopril (Lisinopril 20 Mg Tab) 20 mg PO DAILY [facility] Last Admin: 04/25/21 08:49 Dose: 20 mg Documented by: Lurasidone HCl (Lurasidone 80 Mg Tab) 40 mg PO DAILY [facility] Last Admin: 04/25/21 09:05 Dose: 40 mg Documented by: Metoprolol Tartrate (Metoprolol Tartrate 25 Mg Tab) 25 mg PO BID [facility] Last Admin: 04/25/21 08:47 Dose: 25 mg Documented by: Mirtazapine (Mirtazapine 15 Mg Tab) 15 mg PO BEDTIME [facility] Last Admin: 04/24/21 20:08 Dose: 15 mg Documented by: Montelukast Sodium (Montelukast 10 Mg Tab) 10 mg PO BEDTIME [facility] Last Admin: 04/24/21 20:11 Dose: 10 mg Documented by: Morphine Sulfate (Morphine 15 Mg Tab) 15 mg PO Q4H PRN PRN Reason: Pain (severe 7-10) Last Admin: 04/25/21 15:14 Dose: 15 mg Documented by: Morphine Sulfate (Morphine 2 Mg/Ml Syringe) 2 mg IVPUSH Q2H PRN PRN Reason: Pain (severe 7-10) Last Admin: 04/25/21 12:55 Dose: 2 mg Documented by: Morphine Sulfate (Morphine 15 Mg Tab.Er) 30 mg PO BID [facility] Last Admin: 04/25/21 08:50 Dose: 30 mg Documented by: Mupirocin (Mupirocin Oint 22 Gm Tube) 0 gm TOP TID [facility] Last Admin: 04/25/21 15:08 Dose: 1 applic Documented by: Pantoprazole Sodium (Pantoprazole 40 Mg Tab.Cr) 40 mg PO ACBREAKFAST [facility] Last Admin: 04/25/21 06:07 Dose: Not Given Documented by: (Fluticasone/Umeclidin/Vilanter 1 Each *Pt Own Med* 0 each PO DAILY [facility] Last Admin: 04/25/21 08:08 Dose: 1 each Documented by: (Linaclotide [ Linzess] 145 Mcg Cap )*Pt Own Med* 0 each PO DAILY [facility] Last Admin: 04/25/21 08:51 Dose: 1 each Documented by: Rosuvastatin Calcium (Rosuvastatin 10 Mg Tab) 10 mg PO BEDTIME [facility] Last Admin: 04/24/21 20:08 Dose: 10 mg Documented by: Senna/Docusate Sodium (Docusate Sodium/Sennosides 50-8.6 Mg Tab) 2 tab PO BEDTIME [facility] Last Admin: 04/24/21 20:11 Dose: 2 tab Documented by: Sodium Chloride (Sodium Chloride 0.9% 10 Ml Syringe) 10 ml FLUSH ASDIRECTED PRN PRN Reason: Keep Vein Open Last Admin: 04/22/21 09:48 Dose: 10 ml Documented by: Tizanidine HCl (Tizanidine 4 Mg Tab) 4 mg PO TID [facility] Last Admin: 04/25/21 15:04 Dose: 4 mg Documented by: Zolpidem Tartrate (Zolpidem 10 Mg Tab) 10 mg PO BEDTIME [facility] Last Admin: 04/24/21 20:08 Dose: 10 mg Documented by: Discontinued Medications Diclofenac Sodium (Diclofenac Sodium 1% Gel 100 Gm Tube) gm TOP TID PRN PRN Reason: Pain Diphenhydramine HCl (Diphenhydramine 50 Mg/Ml Sdv) 25 mg IVPUSH ONETIME ONE Stop: 04/22/21 09:28 Last Admin: 04/22/21 09:40 Dose: 25 mg Documented by: Hydromorphone HCl (Hydromorphone 1 Mg/Ml Syringe) 1 mg IVPUSH ONETIME ONE Stop: 04/22/21 09:27 Last Admin: 04/22/21 09:47 Dose: 1 mg Documented by: Magnesium Sulfate 2 gm/ Premix 50 mls @ 25 mls/hr IV ONETIME ONE Stop: 04/22/21 20:54 Last Admin: 04/22/21 21:05 Dose: 25 mls/hr Documented by: Lactulose (Lactulose Soln 10 Gm/15 Ml 30 Ml Ud Cup) 30 gm PO Q72H [facility] Last Admin: 04/24/21 08:48 Dose: Not Given Documented by: Lurasidone HCl (Lurasidone 80 Mg Tab) 40 mg PO DAILY [facility] Last Admin: 04/23/21 12:04 Dose: Not Given Documented by: Metoclopramide HCl (Metoclopramide 10 Mg/2 Ml Sdv) 7.5 mg IVPUSH ONETIME ONE Stop: 04/22/21 09:27 Last Admin: 04/22/21 09:43 Dose: 7.5 mg Documented by: Morphine Sulfate (Morphine 15 Mg Tab.Er) 30 mg PO ONETIME ONE Stop: 04/22/21 15:38 Last Admin: 04/22/21 19:36 Dose: Not Given Documented by: Morphine Sulfate (Morphine 30 Mg Tab.Er) 30 mg PO BID [facility] Morphine Sulfate (Morphine 15 Mg Tab) 15 mg PO Q8H PRN PRN Reason: Pain (severe 7-10) Non-Formulary Medication (Calcium Carbonate/Vitamin D3 [Calcium 1,000 + D3 Caplet]) 1 tab PO BID [facility] Last Admin: 04/23/21 16:47 Dose: Not Given Documented by: - Patient Data Result Diagrams: 04/24/21 05:15 04/22/21 09:33 Sepsis Event Note - Focused Exam Vital Signs: Vital Signs Temp Pulse Resp BP Pulse Ox Pulse Ox 04/25/21 17:35 97.9 F 56 L 16 99/49 L 98 04/25/21 13:05 97.3 F 45 L 18 124/50 L 99 04/25/21 08:49 157/59 H 04/25/21 08:47 6 L 157/59 H 04/25/21 08:44 98.1 F 76 19 157/59 H 97 04/25/21 08:09 98 - Plan Plan:: Case discussed in full. Agree with evaluation, assessment and plan.
[2021-04-25] MEDS: Morphine 2 MG/ML SYRINGE IVPUSH PRN ×2 (08:41→12:55)
[2021-04-25] MEDS: Enoxaparin 40 MG/0.4 ML Syringe SUBCUT SCH (08:47)
[2021-04-25] MEDS: Metoprolol Tartrate 25 MG Tab PO SCH (08:47)
[2021-04-25] MEDS: Gabapentin 600 MG Tab PO SCH ×3 (08:49→20:03)
[2021-04-25] MEDS: tiZANidine 4 MG Tab PO SCH ×3 (08:49→20:05)
[2021-04-25] MEDS: buPROPion 150 MG Tab.ER PO SCH (08:49)
[2021-04-25] MEDS: Gabapentin 100 MG Cap PO SCH ×3 (08:49→20:04)
[2021-04-25] MEDS: Lisinopril 20 MG Tab PO SCH (08:49)
[2021-04-25] MEDS: Morphine 15 MG Tab.ER PO SCH ×2 (08:50→20:04)
[2021-04-25] MEDS: hydrOXYzine HCl 25 MG Tab PO PRN (08:52)
[2021-04-25] MEDS: Mupirocin Oint 22 GM Tube TOP SCH ×3 (08:54→20:33)
[2021-04-25] MEDS ORDERED: Diclofenac Sodium 1% Gel 100 GM Tube TOP PRN (10:41)
[2021-04-25] MEDS: Rosuvastatin 10 MG Tab PO SCH (19:59)
[2021-04-25] MEDS: Zolpidem 10 MG Tab PO SCH (19:59)
[2021-04-25] MEDS: Mirtazapine 15 MG Tab PO SCH (19:59)
[2021-04-25] MEDS: Montelukast 10 MG Tab PO SCH (20:04)
[2021-04-26] MEDS: Morphine 15 MG Tab PO PRN ×2 (03:21→12:07)
[2021-04-26] MEDS: Metoprolol Tartrate 25 MG Tab PO SCH (04:52)
[2021-04-26] MEDS: Morphine 2 MG/ML SYRINGE IVPUSH PRN (05:37)
[2021-04-26] MEDS: Pantoprazole 40 MG Tab.CR PO SCH (07:22)
[2021-04-26] MEDS: buPROPion 150 MG Tab.ER PO SCH (08:59)
[2021-04-26] MEDS: Gabapentin 100 MG Cap PO SCH (08:59)
[2021-04-26] MEDS: Gabapentin 600 MG Tab PO SCH (08:59)
[2021-04-26] MEDS: Lisinopril 20 MG Tab PO SCH (08:59)
[2021-04-26] MEDS: tiZANidine 4 MG Tab PO SCH (09:00)
[2021-04-26] MEDS ORDERED: Metoprolol Tartrate 25 MG Tab PO SCH (09:00)
[2021-04-26] MEDS ORDERED: Lactulose Soln 10 GM/15 ML 30 ML UD Cup PO SCH (09:00)
[2021-04-26] MEDS: Morphine 15 MG Tab.ER PO SCH (09:01)
[2021-04-26] MEDS: Enoxaparin 40 MG/0.4 ML Syringe SUBCUT SCH (09:02)
[2021-04-26 09:10] VITALS: BP 157/66; PULSE 80
[2021-04-26] MEDS: Mupirocin Oint 22 GM Tube TOP SCH (09:14)
--- NOTE | 2021-04-26 09:15 | PCM.DCSUM1 ---
<Marco Dawson - Last Filed: 04/26/21 11:40> Discharge Summary - Hospital Course HPI Initial Comments: 65-year-old female with history of chronic low back pain secondary to spinal stenosis, fibromyalgia, obesity, tripped on her carpet last evening injuring her right ankle. She did not present to the emergency department until this morning. Patient tried to manage the pain with her home dose of morphine for her chronic pain, but the pain was sharp and severe. She is unable to bear weight on that right ankle without significant and worsening pain along the lateral side. Patient is on 3 L/min of O2 secondary to COPD and when she arrived at the emergency department she did have a temperature of 100.4. She had no cough or sputum production. She is vaccinated against COVID-19. In the emergency department she was found to have an acute and oblique fracture within the distal fibula without displacement. Other than old injuries nothing else noted on x-ray of the right leg, ankle, and foot. Patient had a splint placed by the emergency room physician, but she lives alone and was unable to return home. They tried most of the day to get longterm placement without success. Patient is being admitted awaiting longterm placement after the weekend. Diagnosis: Stroke: No - Discharge Data Discharge Date: 04/26/21 Discharge Disposition: DC/Tfer to SNF 03 Condition: Good - Referral to Home Health Primary Care Physician: Aaliyah Ozuna MD - Discharge Diagnosis/Problem(s) (1) Bipolar disorder SNOMED Code(s): 20012649 ICD Code: F31.9 - BIPOLAR DISORDER, UNSPECIFIED Status: Chronic Priority: Low Qualifiers: Active/Remission status: remission status unspecified Qualified Code(s): F31.9 - Bipolar disorder, unspecified (2) Chronic low back pain with right-sided sciatica SNOMED Code(s): 347943262 ICD Code: M54.41 - LUMBAGO WITH SCIATICA, RIGHT SIDE; G89.29 - OTHER CHRONIC PAIN Status: Chronic Priority: Low Qualifiers: Back pain laterality: right Qualified Code(s): M54.41 - Lumbago with sciatica, right side; G89.29 - Other chronic pain (3) Chronic pain syndrome SNOMED Code(s): 730842425 ICD Code: G89.4 - CHRONIC PAIN SYNDROME Status: Chronic Priority: Medium (4) Fall as cause of accidental injury at home as place of occurrence SNOMED Code(s): 08944727 ICD Code: W19.XXXA - UNSPECIFIED FALL, INITIAL ENCOUNTER; Y92.009 - UNSP PLACE IN UNSP NON-INSTITUT (PRIVATE) RESIDENCE PLACE Status: Acute Priority: High Qualifiers: Encounter type: initial encounter Qualified Code(s): W19.XXXA - Unspecified fall, initial encounter; Y92.009 - Unspecified place in unspecified non- institutional (private) residence as the place of occurrence of the external cause (5) Fracture of distal end of fibula SNOMED Code(s): 142068965 ICD Code: S82.839A - OTH FRACTURE OF UPPER AND LOWER END OF UNSP FIBULA, INIT Status: Acute Priority: High Qualifiers: Encounter type: initial encounter Fracture type: closed Fracture morphology: other fracture Laterality: right Qualified Code(s): S82.831A - Other fracture of upper and lower end of right fibula, initial encounter for closed fracture (6) Fibromyalgia SNOMED Code(s): 042634697 ICD Code: M79.7 - FIBROMYALGIA Status: Chronic Priority: Medium (7) Hypertension SNOMED Code(s): 07757459 ICD Code: I10 - ESSENTIAL (PRIMARY) HYPERTENSION Status: Chronic Priority: Medium Qualifiers: Hypertension type: unspecified Qualified Code(s): I10 - Essential (primary) hypertension - Patient Summary/Data Consults: Consultations 04/24/21 07:00 PT Evaluation and Treatment [CONS] Routine 04/25/21 06:49 Consult to Case Management/Weaving Machine Operator [CONS] Routine Labs Pending at D/C: None. Recommended Follow-up Testing/Procedures: Follow-up with primary care provider within 7 to 10 days of discharge, sooner if needed. * Patient has cam boot in place on right lower extremity. * [facility] * Family has been indicating they would like patient discharged to [facility] in [place] whenever she needs her rehab goals. * All home medications continued, however patient's as needed MS Contin was increased in frequency from every 8 hours to every 6 hours. * Continue PT/OT at SNF. Follow-up with orthopedics within 2 to 3 weeks. Hospital Course: This is a 65-year-old female admitted to the floor for a right side distal fibular fracture secondary to a fall. Patient does have underlying chronic pain syndrome and is on scheduled and as needed MS Contin in addition to Neurontin. She is chronically oxygen dependent on 3 L and she remained stable here while on her home settings. In the ED Ortho-Glass stirrup splint with posterior slab was applied. Plan was to discharge the patient directly from the ED to SNF however this was unable to be arranged so patient was admitted to the floor. Pain was fairly well controlled with MS Contin and prior to discharge her as needed dosing was increased from every 8 hours to every 6 hours. X-rays were reviewed by orthopedics and splint was removed. Patient was placed in a cam boot and was instructed to utilize toe-touch weightbearing for transfers. She should follow-up with orthopedics within 2 to 3 weeks of discharge. Ultimately social work assisted in placement at [facility] for rehab stay. Patient indicated that her daughter and her would like patient discharged to assisted living facility in [place] after she completes her rehab stay, as she will be closer to many of her doctors. Patient instructed to discuss this with [facility] social workers while there. Overall patient has done well throughout her stay. She will be discharged to [facility] today with her cam boot in place. - Patient Instructions Diet: Usual Diet as Tolerated Activity, Other: Weightbearing for transfers Driving: Do Not Drive Showering/Bathing: May Shower Notify Provider of: Fever, Increased Pain, Nausea and/or Vomiting Other/Special Instructions: Follow-up with primary care provider within 7 to 10 days of discharge, sooner if needed. Follow-up with orthopedics in 2 to 3 weeks. Resume home medications as directed. Continue PT/OT at [facility]. As needed 15 mg MS Contin frequency with increased from 8 hours to 6 hours. You are on several narcotic pain medications. These may lead to constipation. You can take laxatives or stool softeners as needed to improve this. Do not drive or operate machinery while on narcotic pain medications. Continue to wear your oxygen as before. Should symptoms return or worsen contact primary care provider or return the emergency room. - Discharge Plan *PRESCRIPTION DRUG MONITORING PROGRAM REVIEWED*: Yes *COPY OF PRESCRIPTION DRUG MONITORING REPORT IN PATIENT MARIA EUGENIA: No Prescriptions/Med Rec: Metoprolol Tartrate [Lopressor] 12.5 mg PO BID #20 tablet Morphine 15 mg PO Q6H PRN #15 tablet PRN Reason: BreakthroughPain (Severe 7-10) Morphine [MS Contin] 30 mg PO BID #40 tab.er Gabapentin [Neurontin] 800 mg PO TID #30 tab tiZANidine [Zanaflex] 4 mg PO TID #30 tablet Home Medications: Home Meds Albuterol [Ventolin HFA] 2 puff INH Q4H PRN 03/19/18 [History] Lactulose 30 ml PO ASDIRECTED 03/19/18 [History] Sennosides/Docusate Sodium [Senna-S] 2 tab PO BEDTIME 03/19/18 [History] Pantoprazole [ProTONIX] 40 mg PO DAILY 07/20/18 [History] Calcium Carbonate/Vitamin D3 [Calcium 1,000 + D3 Caplet] 1 tab PO BID 02/11/20 [History] Diclofenac Sodium [Voltaren 1% Gel] 1 applic TOP TID PRN 02/11/20 [History] Lurasidone [Latuda] 40 mg PO DAILY 02/11/20 [History] Fluticasone/Umeclidin/Vilanter [Trelegy Ellipta 100-62.5-25] 1 puff PO DAILY 04/22/21 [History] Linaclotide [Linzess] 145 mcg PO DAILY 04/22/21 [History] Montelukast [Singulair] 10 mg PO BEDTIME 04/22/21 [History] Mupirocin Oint [Bactroban Oint] 1 applic TOP TID 04/22/21 [History] Rosuvastatin [Crestor] 10 mg PO BEDTIME 04/22/21 [History] buPROPion HCL [Bupropion HCl Sr] 150 mg PO DAILY 04/22/21 [History] hydrOXYzine HCL [hydrOXYzine] 25 mg PO TID PRN 04/22/21 [History] lisinopriL [Lisinopril] 20 mg PO DAILY 04/22/21 [History] Gabapentin [Neurontin] 800 mg PO TID #30 tab 04/26/21 [Rx] Metoprolol Tartrate [Lopressor] 12.5 mg PO BID #20 tablet 04/26/21 [Rx] Mirtazapine [Remeron] 15 mg PO BEDTIME 04/26/21 [History] Morphine 15 mg PO Q6H PRN #15 tablet 04/26/21 [Rx] Morphine [MS Contin] 30 mg PO BID #40 tab.er 04/26/21 [Rx] Zolpidem Tartrate [Ambien] 10 mg PO BEDTIME 04/26/21 [History] tiZANidine [Zanaflex] 4 mg PO TID #30 tablet 04/26/21 [Rx] Oxygen Therapy Mode: Nasal Cannula Oxygen Flow Rate (L/min): 3 Maintain SpO2% greater than: 88 Forms: ED Department Discharge Referrals: Aaliyah Ozuna MD [Primary Care Provider] - 05/02/21 2:10 pm (Please arrive at 2:10 for check in.) Cuba Granados MD [Physician] - () - Discharge Summary/Plan Comment DC Time >30 min.: Yes Total # of Minutes for Discharge Time: 45 mins - General Info Date of Service: 04/26/21 Admission Dx/Problem (Free Text: Admission Diagnosis/Problem Admission Diagnosis/Problem Fall as cause of accidental injury in home as place of occurrence Functional Status: Reports: Pain Controlled, Tolerating Diet, Ambulating, Urinating, Incentive Spirometry. Denies: New Symptoms - Review of Systems General: Reports: No Symptoms, Weakness. Denies: Fever, Fatigue, Malaise, Chills HEENT: Reports: No Symptoms. Denies: Headaches, Sore Throat Pulmonary: Reports: No Symptoms. Denies: Shortness of Breath, Cough, Sputum, Wheezing Cardiovascular: Reports: No Symptoms. Denies: Chest Pain, Palpitations, Dyspnea on Exertion, Edema Gastrointestinal: Reports: No Symptoms. Denies: Abdominal Pain, Constipation, Diarrhea, Nausea, Vomiting Genitourinary: Reports: No Symptoms. Denies: Pain Musculoskeletal: Reports: Neck Pain (chronic ), Hand Pain (left wrist when leaning on walker), Back Pain (chronic ), Leg Pain (right ) Skin: Reports: No Symptoms. Denies: Cyanosis Neurological: Reports: Difficulty Walking, Weakness, Gait Disturbance. Denies: Confusion, Dizziness, Headache, Numbness, Seizure, Syncope, Tingling Psychiatric: Reports: No Symptoms - Patient Data Vitals - Most Recent: Last Vital Signs Temp 97.7 F 04/26/21 08:28 Pulse 80 04/26/21 08:56 Resp 18 04/26/21 08:28 BP 157/66 H 04/26/21 08:59 Pulse Ox 98 04/26/21 08:29 Weight - Most Recent: 249 lb 6.4 oz I&O - Last 24 hours: Intake & Output 04/25/21 04/26/21 04/26/21 22:59 06:59 14:59 Intake Total 480 Output Total 250 Balance 230 Lab Results - Last 24 hrs: Laboratory Results - last 24 hr 04/26/21 Range/Units 07:23 SARS-CoV-2 RNA (AIDA) Negative (NEGATIVE) Med Orders - Current: Current Medications Albuterol (Albuterol 6.7 Gm Inhaler) 0 gm INH Q4H PRN PRN Reason: Shortness of Breath Last Admin: 04/24/21 16:49 Dose: 2 puff Documented by: Bupropion HCl (Bupropion 150 Mg Tab.Sr) 150 mg PO DAILY [facility] Diclofenac Sodium (Diclofenac Sodium 1% Gel 100 Gm Tube) 0 gm TOP Q6H PRN PRN Reason: Pain Last Admin: 04/25/21 20:33 Dose: 1 applic Documented by: Enoxaparin Sodium (Enoxaparin 40 Mg/0.4 Ml Syringe) 40 mg SUBCUT DAILY [facility] Last Admin: 04/26/21 09:02 Dose: 40 mg Documented by: Gabapentin (Gabapentin 600 Mg Tab) 600 mg PO TID [facility] Last Admin: 04/26/21 08:59 Dose: 600 mg Documented by: Gabapentin (Gabapentin 100 Mg Cap) 200 mg PO TID [facility] Last Admin: 04/26/21 08:59 Dose: 200 mg Documented by: Hydroxyzine HCl (Hydroxyzine Hcl 25 Mg Tab) 25 mg PO TID PRN PRN Reason: Allergies Last Admin: 04/25/21 08:52 Dose: 25 mg Documented by: Lactulose (Lactulose Soln 10 Gm/15 Ml 30 Ml Ud Cup) 20 gm PO Q72H [facility] Lisinopril (Lisinopril 20 Mg Tab) 20 mg PO DAILY [facility] Last Admin: 04/26/21 08:59 Dose: 20 mg Documented by: Lurasidone HCl (Lurasidone 80 Mg Tab) 40 mg PO DAILY [facility] Last Admin: 04/25/21 09:05 Dose: 40 mg Documented by: Metoprolol Tartrate (Metoprolol Tartrate 25 Mg Tab) 12.5 mg PO BID [facility] Last Admin: 04/26/21 08:56 Dose: 12.5 mg Documented by: Mirtazapine (Mirtazapine 15 Mg Tab) 15 mg PO BEDTIME [facility] Last Admin: 04/25/21 19:59 Dose: 15 mg Documented by: Montelukast Sodium (Montelukast 10 Mg Tab) 10 mg PO BEDTIME [facility] Last Admin: 04/25/21 20:04 Dose: 10 mg Documented by: Morphine Sulfate (Morphine 15 Mg Tab) 15 mg PO Q4H PRN PRN Reason: Pain (severe 7-10) Last Admin: 04/26/21 03:21 Dose: 15 mg Documented by: Morphine Sulfate (Morphine 2 Mg/Ml Syringe) 2 mg IVPUSH Q2H PRN PRN Reason: Pain (severe 7-10) Last Admin: 04/26/21 05:37 Dose: 2 mg Documented by: Morphine Sulfate (Morphine 15 Mg Tab.Er) 30 mg PO BID [facility] Last Admin: 04/26/21 09:01 Dose: 30 mg Documented by: Mupirocin (Mupirocin Oint 22 Gm Tube) 0 gm TOP TID [facility] Last Admin: 04/25/21 20:33 Dose: 1 applic Documented by: Pantoprazole Sodium (Pantoprazole 40 Mg Tab.Cr) 40 mg PO ACBREAKFAST [facility] Last Admin: 04/26/21 07:22 Dose: 40 mg Documented by: (Fluticasone/Umeclidin/Vilanter 1 Each *Pt Own Med* 0 each PO DAILY [facility] Last Admin: 04/26/21 09:12 Dose: 1 each Documented by: (Linaclotide [ Linzess] 145 Mcg Cap )*Pt Own Med* 0 each PO DAILY [facility] Last Admin: 04/25/21 08:51 Dose: 1 each Documented by: Rosuvastatin Calcium (Rosuvastatin 10 Mg Tab) 10 mg PO BEDTIME [facility] Last Admin: 04/25/21 19:59 Dose: 10 mg Documented by: Senna/Docusate Sodium (Docusate Sodium/Sennosides 50-8.6 Mg Tab) 2 tab PO BEDTIME [facility] Last Admin: 04/25/21 19:58 Dose: 2 tab Documented by: Sodium Chloride (Sodium Chloride 0.9% 10 Ml Syringe) 10 ml FLUSH ASDIRECTED PRN PRN Reason: Keep Vein Open Last Admin: 04/22/21 09:48 Dose: 10 ml Documented by: Tizanidine HCl (Tizanidine 4 Mg Tab) 4 mg PO TID [facility] Last Admin: 04/26/21 09:00 Dose: 4 mg Documented by: Zolpidem Tartrate (Zolpidem 10 Mg Tab) 10 mg PO BEDTIME [facility] Last Admin: 04/25/21 19:59 Dose: 10 mg Documented by: Discontinued Medications Bupropion HCl (Bupropion 150 Mg Tab.Er) 150 mg PO DAILY [facility] Stop: 04/26/21 10:00 Last Admin: 04/26/21 08:59 Dose: 150 mg Documented by: Diclofenac Sodium (Diclofenac Sodium 1% Gel 100 Gm Tube) gm TOP TID PRN PRN Reason: Pain Diphenhydramine HCl (Diphenhydramine 50 Mg/Ml Sdv) 25 mg IVPUSH ONETIME ONE Stop: 04/22/21 09:28 Last Admin: 04/22/21 09:40 Dose: 25 mg Documented by: Hydromorphone HCl (Hydromorphone 1 Mg/Ml Syringe) 1 mg IVPUSH ONETIME ONE Stop: 04/22/21 09:27 Last Admin: 04/22/21 09:47 Dose: 1 mg Documented by: Magnesium Sulfate 2 gm/ Premix 50 mls @ 25 mls/hr IV ONETIME ONE Stop: 04/22/21 20:54 Last Admin: 04/22/21 21:05 Dose: 25 mls/hr Documented by: Lactulose (Lactulose Soln 10 Gm/15 Ml 30 Ml Ud Cup) 30 gm PO Q72H [facility] Last Admin: 04/24/21 08:48 Dose: Not Given Documented by: Lurasidone HCl (Lurasidone 80 Mg Tab) 40 mg PO DAILY [facility] Last Admin: 04/23/21 12:04 Dose: Not Given Documented by: Metoclopramide HCl (Metoclopramide 10 Mg/2 Ml Sdv) 7.5 mg IVPUSH ONETIME ONE Stop: 04/22/21 09:27 Last Admin: 04/22/21 09:43 Dose: 7.5 mg Documented by: Metoprolol Tartrate (Metoprolol Tartrate 25 Mg Tab) 25 mg PO BID [facility] Last Admin: 04/26/21 04:52 Dose: Not Given Documented by: Morphine Sulfate (Morphine 15 Mg Tab.Er) 30 mg PO ONETIME ONE Stop: 04/22/21 15:38 Last Admin: 04/22/21 19:36 Dose: Not Given Documented by: Morphine Sulfate (Morphine 30 Mg Tab.Er) 30 mg PO BID [facility] Morphine Sulfate (Morphine 15 Mg Tab) 15 mg PO Q8H PRN PRN Reason: Pain (severe 7-10) Non-Formulary Medication (Calcium Carbonate/Vitamin D3 [Calcium 1,000 + D3 Caplet]) 1 tab PO BID [facility] Last Admin: 04/23/21 16:47 Dose: Not Given Documented by: - Exam Quality Assessment: Reports: Supplemental Oxygen (3L - chronic ), DVT Prophylaxis General: Reports: Alert, Oriented, Cooperative, No Acute Distress HEENT: Reports: Pupils Equal, Pupils Reactive, Mucous Membr. Moist/Nathalie Neck: Reports: Supple, Trachea Midline Lungs: Reports: Clear to Auscultation, Normal Respiratory Effort Cardiovascular: Reports: Regular Rate, Regular Rhythm GI/Abdominal Exam: Normal Bowel Sounds, Soft, Non-Tender, No Organomegaly, No Distention, No Abnormal Bruit (Female) Exam: Deferred Rectal (Female) Exam: Deferred Back Exam: Reports: Normal Inspection, Full Range of Motion Extremities: Normal Inspection, Normal Range of Motion, No Pedal Edema, Normal Capillary Refill, Leg Pain, Limited Range of Motion, Other (Cam boot in place on right leg. CMS intact) Skin: Reports: Warm, Dry, Intact Neurological: Reports: No New Focal Deficit Psy/Mental Status: Reports: Alert, Normal Affect, Normal Mood <Geoff Banerjee - Last Filed: 04/26/21 20:12> Discharge Summary - Referral to Home Health Primary Care Physician: Aaliyah Ozuna MD - Patient Summary/Data Consults: Consultations 04/24/21 07:00 PT Evaluation and Treatment [CONS] Routine 04/25/21 06:49 Consult to Case Management/Weaving Machine Operator [CONS] Routine - Discharge Summary/Plan Comment Discharge Summary/Plan Comment: Case discussed in full. Agree with evaluation, assessment and plan. - Patient Data Vitals - Most Recent: Last Vital Signs Temp 97.7 F 04/26/21 08:28 Pulse 80 04/26/21 08:56 Resp 18 04/26/21 08:28 BP 157/66 H 04/26/21 08:59 Pulse Ox 94 L 04/26/21 09:00 I&O - Last 24 hours: Intake & Output 04/26/21 04/26/21 04/26/21 06:59 14:59 22:59 Output Total 550 Balance -550 Lab Results - Last 24 hrs: Laboratory Results - last 24 hr 04/26/21 Range/Units 07:23 SARS-CoV-2 RNA (AIDA) Negative (NEGATIVE) Med Orders - Current: Current Medications Discontinued Medications Albuterol (Albuterol 6.7 Gm Inhaler) 0 gm INH Q4H PRN PRN Reason: Shortness of Breath Last Admin: 04/24/21 16:49 Dose: 2 puff Documented by: Bupropion HCl (Bupropion 150 Mg Tab.Er) 150 mg PO DAILY [facility] Stop: 04/26/21 10:00 Last Admin: 04/26/21 08:59 Dose: 150 mg Documented by: Bupropion HCl (Bupropion 150 Mg Tab.Sr) 150 mg PO DAILY [facility] Diclofenac Sodium (Diclofenac Sodium 1% Gel 100 Gm Tube) gm TOP TID PRN PRN Reason: Pain Diclofenac Sodium (Diclofenac Sodium 1% Gel 100 Gm Tube) 0 gm TOP Q6H PRN PRN Reason: Pain Last Admin: 04/25/21 20:33 Dose: 1 applic Documented by: Diphenhydramine HCl (Diphenhydramine 50 Mg/Ml Sdv) 25 mg IVPUSH ONETIME ONE Stop: 04/22/21 09:28 Last Admin: 04/22/21 09:40 Dose: 25 mg Documented by: Enoxaparin Sodium (Enoxaparin 40 Mg/0.4 Ml Syringe) 40 mg SUBCUT DAILY [facility] Last Admin: 04/26/21 09:02 Dose: 40 mg Documented by: Gabapentin (Gabapentin 600 Mg Tab) 600 mg PO TID [facility] Last Admin: 04/26/21 08:59 Dose: 600 mg Documented by: Gabapentin (Gabapentin 100 Mg Cap) 200 mg PO TID [facility] Last Admin: 04/26/21 08:59 Dose: 200 mg Documented by: Hydromorphone HCl (Hydromorphone 1 Mg/Ml Syringe) 1 mg IVPUSH ONETIME ONE Stop: 04/22/21 09:27 Last Admin: 04/22/21 09:47 Dose: 1 mg Documented by: Hydroxyzine HCl (Hydroxyzine Hcl 25 Mg Tab) 25 mg PO TID PRN PRN Reason: Allergies Last Admin: 04/25/21 08:52 Dose: 25 mg Documented by: Magnesium Sulfate 2 gm/ Premix 50 mls @ 25 mls/hr IV ONETIME ONE Stop: 04/22/21 20:54 Last Admin: 04/22/21 21:05 Dose: 25 mls/hr Documented by: Lactulose (Lactulose Soln 10 Gm/15 Ml 30 Ml Ud Cup) 30 gm PO Q72H [facility] Last Admin: 04/24/21 08:48 Dose: Not Given Documented by: Lactulose (Lactulose Soln 10 Gm/15 Ml 30 Ml Ud Cup) 20 gm PO Q72H [facility] Last Admin: 04/26/21 09:18 Dose: Not Given Documented by: Lisinopril (Lisinopril 20 Mg Tab) 20 mg PO DAILY [facility] Last Admin: 04/26/21 08:59 Dose: 20 mg Documented by: Lurasidone HCl (Lurasidone 80 Mg Tab) 40 mg PO DAILY [facility] Last Admin: 04/23/21 12:04 Dose: Not Given Documented by: Lurasidone HCl (Lurasidone 80 Mg Tab) 40 mg PO DAILY [facility] Last Admin: 04/26/21 09:17 Dose: 40 mg Documented by: Magnesium Hydroxide (Magnesium Hydroxide 400 Mg/5 Ml Susp 30 Ml Cup) 30 ml PO ONETIME ONE Stop: 04/26/21 10:36 Last Admin: 04/26/21 10:51 Dose: 30 ml Documented by: Metoclopramide HCl (Metoclopramide 10 Mg/2 Ml Sdv) 7.5 mg IVPUSH ONETIME ONE Stop: 04/22/21 09:27 Last Admin: 04/22/21 09:43 Dose: 7.5 mg Documented by: Metoprolol Tartrate (Metoprolol Tartrate 25 Mg Tab) 25 mg PO BID [facility] Last Admin: 04/26/21 04:52 Dose: Not Given Documented by: Metoprolol Tartrate (Metoprolol Tartrate 25 Mg Tab) 12.5 mg PO BID [facility] Last Admin: 04/26/21 08:56 Dose: 12.5 mg Documented by: Mirtazapine (Mirtazapine 15 Mg Tab) 15 mg PO BEDTIME [facility] Last Admin: 04/25/21 19:59 Dose: 15 mg Documented by: Montelukast Sodium (Montelukast 10 Mg Tab) 10 mg PO BEDTIME [facility] Last Admin: 04/25/21 20:04 Dose: 10 mg Documented by: Morphine Sulfate (Morphine 15 Mg Tab.Er) 30 mg PO ONETIME ONE Stop: 04/22/21 15:38 Last Admin: 04/22/21 19:36 Dose: Not Given Documented by: Morphine Sulfate (Morphine 15 Mg Tab) 15 mg PO Q4H PRN PRN Reason: Pain (severe 7-10) Last Admin: 04/26/21 12:07 Dose: 15 mg Documented by: Morphine Sulfate (Morphine 2 Mg/Ml Syringe) 2 mg IVPUSH Q2H PRN PRN Reason: Pain (severe 7-10) Last Admin: 04/26/21 05:37 Dose: 2 mg Documented by: Morphine Sulfate (Morphine 30 Mg Tab.Er) 30 mg PO BID [facility] Morphine Sulfate (Morphine 15 Mg Tab) 15 mg PO Q8H PRN PRN Reason: Pain (severe 7-10) Morphine Sulfate (Morphine 15 Mg Tab.Er) 30 mg PO BID [facility] Last Admin: 04/26/21 09:01 Dose: 30 mg Documented by: Mupirocin (Mupirocin Oint 22 Gm Tube) 0 gm TOP TID [facility] Last Admin: 04/26/21 09:14 Dose: 1 applic Documented by: Non-Formulary Medication (Calcium Carbonate/Vitamin D3 [Calcium 1,000 + D3 Caplet]) 1 tab PO BID [facility] Last Admin: 04/23/21 16:47 Dose: Not Given Documented by: Pantoprazole Sodium (Pantoprazole 40 Mg Tab.Cr) 40 mg PO ACBREAKFAST [facility] Last Admin: 04/26/21 07:22 Dose: 40 mg Documented by: (Fluticasone/Umeclidin/Vilanter 1 Each *Pt Own Med* 0 each PO DAILY [facility] Last Admin: 04/26/21 09:12 Dose: 1 each Documented by: (Linaclotide [ Linzess] 145 Mcg Cap )*Pt Own Med* 0 each PO DAILY [facility] Last Admin: 04/26/21 09:18 Dose: 1 each Documented by: Rosuvastatin Calcium (Rosuvastatin 10 Mg Tab) 10 mg PO BEDTIME [facility] Last Admin: 04/25/21 19:59 Dose: 10 mg Documented by: Senna/Docusate Sodium (Docusate Sodium/Sennosides 50-8.6 Mg Tab) 2 tab PO BEDTIME [facility] Last Admin: 04/25/21 19:58 Dose: 2 tab Documented by: Sodium Chloride (Sodium Chloride 0.9% 10 Ml Syringe) 10 ml FLUSH ASDIRECTED PRN PRN Reason: Keep Vein Open Last Admin: 04/22/21 09:48 Dose: 10 ml Documented by: Tizanidine HCl (Tizanidine 4 Mg Tab) 4 mg PO TID [facility] Last Admin: 04/26/21 09:00 Dose: 4 mg Documented by: Zolpidem Tartrate (Zolpidem 10 Mg Tab) 10 mg PO BEDTIME [facility] Last Admin: 04/25/21 19:59 Dose: 10 mg Documented by:
[2021-04-26] MEDS ORDERED: Magnesium Hydroxide 400 MG/5 ML Susp 30 ML Cup PO ONE (10:35)
[2021-04-27] MEDS ORDERED: buPROPion 150 MG Tab.SR PO SCH (09:00)
== END 2021-04-26 13:00 | DRG 563 ==
LOC: JD.ED 08:57 → JD.MS 15:44 → JD.OB 04-25 12:16 → JD.MS 04-26 12:55 → UNDODISIN 04-26 13:00
PROVIDERS: ADMIT Family Medicine; ATTEND Family Medicine
DX: S82.831A Other fracture of upper and lower end of right fibula, initial encounter for closed fracture (principal); Z68.41 Body mass index [BMI] 40.0-44.9, adult; M79.7 Fibromyalgia; I10 Essential (primary) hypertension; M54.41 Lumbago with sciatica, right side; G89.29 Other chronic pain; E78.00 Pure hypercholesterolemia, unspecified; K59.09 Other constipation; K21.9 Gastro-esophageal reflux disease without esophagitis; Z20.822 Contact with and (suspected) exposure to COVID-19; M54.9 Dorsalgia, unspecified; J44.9 Chronic obstructive pulmonary disease, unspecified; G47.30 Sleep apnea, unspecified; D41.9 Neoplasm of uncertain behavior of unspecified urinary organ; E66.01 Morbid (severe) obesity due to excess calories; F31.9 Bipolar disorder, unspecified; F41.9 Anxiety disorder, unspecified; G62.9 Polyneuropathy, unspecified; Z87.891 Personal history of nicotine dependence; Z88.0 Allergy status to penicillin; Z88.5 Allergy status to narcotic agent; Z88.8 Allergy status to other drugs, medicaments and biological substances; Z79.51 Long term (current) use of inhaled steroids; Z79.899 Other long term (current) drug therapy; W19.XXXA Unspecified fall, initial encounter; Y92.009 Unspecified place in unspecified non-institutional (private) residence as the place of occurrence of the external cause
CPT/HCPCS: 29515; 36415; 71045; 71045-26; 73590-26-RT; 73590-RT; 73610-26-RT; 73610-RT; 73620-26-RT; 73620-RT; 80053; 81001; 83735; 83880; 85025; 85610; 85730; 86140; 87040; 94640; 94760; 96374; 96375; 97116-GP; 97162-GP; 97530-GP; 99223; 99232; 99239; 99284-25; A9270-GY; J1170; J1200; J1650; J2270; J2765; J3475; U0002

== ENCOUNTER 2022-09-20 11:20 | Emergency (ER) | payer MEDICAID, MEDICARE, OTHER ==
[2022-09-20 11:32] VITALS: BP 115/82; PULSE 58
[2022-09-20] MEDS ORDERED: Pseudoephedrine 30 MG Tab PO ONE (12:41)
[2022-09-20] MEDS ORDERED: Albuterol/Ipratropium 3.0-0.5 MG/3 ML Neb Soln NEB ONE (13:24)
== END 2022-09-20 14:56 | disposition home or self-care (01) ==
LOC: JD.ED 11:20
DX: U07.1 COVID-19 (principal); J44.9 Chronic obstructive pulmonary disease, unspecified; E78.00 Pure hypercholesterolemia, unspecified; I10 Essential (primary) hypertension; K21.9 Gastro-esophageal reflux disease without esophagitis; E66.9 Obesity, unspecified; Z68.37 Body mass index [BMI] 37.0-37.9, adult; Z88.0 Allergy status to penicillin; Z88.5 Allergy status to narcotic agent; Z88.8 Allergy status to other drugs, medicaments and biological substances; Z79.899 Other long term (current) drug therapy
CPT/HCPCS: 36415; 71045; 80053; 83735; 85025; 86140; 93005; 94640; 99285; A9270; 93010; 99284; J7620-GY

== ENCOUNTER → 2023-01-22 | Day surgery (SDC) | payer MEDICARE, MEDICAID, OTHER ==
[~2023-01-22] MED LIST: Lactated Ringers 1,000 ML IV SCH; Sodium Chloride 0.9% 10 ML Syringe FLUSH PRN; Sodium Chloride 0.9% 10 ML Syringe FLUSH SCH
[2023-01-22 16:19] VITALS: BP 141/56; PULSE 62
== END ==
LOC: JD.SDS 10:58
PROVIDERS: ATTEND Surgery
DX: Z53.09 Procedure and treatment not carried out because of other contraindication (principal); Z88.0 Allergy status to penicillin; Z88.5 Allergy status to narcotic agent; Z88.8 Allergy status to other drugs, medicaments and biological substances
CPT/HCPCS: 96360; J7120

== ENCOUNTER 2023-02-28 08:18 | Day surgery (SDC) | payer MEDICARE, MEDICAID, OTHER ==
[2023-02-28] MEDS ORDERED: fentaNYL 100 MCG/2 ML SDV ONE (10:50)
[2023-02-28] MEDS ORDERED: Midazolam 1 MG/ML 2 ML SDV ONE (10:50)
[2023-02-28] MEDS ORDERED: Propofol 200 MG/20 ML SDV ONE ×4 (10:50→11:52)
[2023-02-28 19:01] VITALS: BP 158/88; PULSE 78
== END 2023-02-28 13:20 | disposition home or self-care (01) ==
LOC: JD.SDS 08:18
PROVIDERS: ATTEND Surgery
DX: Z12.11 Encounter for screening for malignant neoplasm of colon (principal); D12.2 Benign neoplasm of ascending colon; D12.3 Benign neoplasm of transverse colon; D12.4 Benign neoplasm of descending colon; K63.5 Polyp of colon; K62.1 Rectal polyp; K31.89 Other diseases of stomach and duodenum; K29.50 Unspecified chronic gastritis without bleeding; K29.80 Duodenitis without bleeding; K21.9 Gastro-esophageal reflux disease without esophagitis; K63.89 Other specified diseases of intestine; K64.8 Other hemorrhoids; J44.9 Chronic obstructive pulmonary disease, unspecified; M48.02 Spinal stenosis, cervical region; F41.8 Other specified anxiety disorders; K58.9 Irritable bowel syndrome, unspecified; F25.9 Schizoaffective disorder, unspecified; E78.5 Hyperlipidemia, unspecified; I10 Essential (primary) hypertension; G89.4 Chronic pain syndrome; E78.00 Pure hypercholesterolemia, unspecified; R73.09 Other abnormal glucose; I73.9 Peripheral vascular disease, unspecified; M19.90 Unspecified osteoarthritis, unspecified site; Z98.890 Other specified postprocedural states; Z79.899 Other long term (current) drug therapy; Z88.0 Allergy status to penicillin; Z88.5 Allergy status to narcotic agent; Z88.8 Allergy status to other drugs, medicaments and biological substances; Z87.891 Personal history of nicotine dependence; Z86.010 Personal history of colon polyps; Z99.81 Dependence on supplemental oxygen
CPT/HCPCS: 43239; 45380; 88305; J2250; J2704; J3010; J7120; 00813

== ENCOUNTER 2023-07-23 14:30 | Inpatient (IN) | payer MEDICARE ==
[2023-07-23] MEDS: Diltiazem 25 MG/5 ML SDV IVPUSH ONE (14:53)
[2023-07-23] MEDS: Sodium Chloride 0.9% 10 ML Syringe FLUSH PRN (15:03)
[2023-07-23] MEDS: Diltiazem 125 MG in Sodium Chloride 0.9% 100 ML IV SCH (15:03)
[2023-07-23 15:05] LABS: PCO2 ARTERIAL 64.4 mmHg (35.0-45.0)
[2023-07-23 15:06] LABS: BICARBONATE,ARTERIAL 25.4 meq/L (22.0-26.0)
[2023-07-23 15:14] LABS: BASOPHILS PERCENT AUTO 0.2 % (0.0-1.0); EOSINOPHILS PERCENT AUTO 0.2 % (0.0-6.0); HEMATOCRIT 39.5 % (37.0-47.0); IMMATURE GRAN ABSOLUTE AUTO 0.36 K/mm3 (0.00-0.05); IMMATURE GRAN PERCENT AUTO 1.6 % (0.0-0.4); LYMPHOCYTES ABSOLUTE AUTO 5.3 K/mm3 (1.0-4.8); LYMPHOCYTES PERCENT AUTO 22.9 % (24.0-44.0); MEAN CORPUSCULAR HEMOGLOBIN 28.6 pg (28.0-32.0); MEAN CORPUSCULAR HGB CONC 30.4 g/dl (32.0-36.0); MEAN CORPUSCULAR VOLUME 94.3 fl (83.0-99.0); MEAN PLATELET VOLUME 10.2 fl (9.4-12.3); MONOCYTES ABSOLUTE AUTO 1.4 K/mm3 (0.0-0.8); MONOCYTES PERCENT AUTO 6.1 % (0.0-8.0); NEUTROPHILS ABSOLUTE AUTO 15.9 K/mm3 (1.8-7.7); NRBC ABSOLUTE 0.09 (0.00-0.02); NRBC PERCENT 0.4 % (0.0-0.2); PLATELET COUNT,PLT 444 K/mm3 (150-400); RED BLOOD CELL COUNT 4.19 M/mm3 (4.10-5.30); WHITE BLOOD CELL COUNT,WBC 23.07 K/mm3 (3.9-11.3)
[2023-07-23 15:26] LABS: CORONAVIRUS COVID-19 NAA NEGATIVE (NEGATIVE); INFLUENZA A NAA NEGATIVE (NEGATIVE); RESPIRATORY SYNCYTIAL VIR NAA NEGATIVE (NEGATIVE)
[2023-07-23 15:45] LABS: A/G RATIO 0.7 (1-2); ALANINE AMINOTRANSFERASE,ALT 43 U/L (14-59); ALBUMIN 3.3 g/dl (3.4-5.0); ALKALINE PHOSPHATASE 134 U/L (46-116); ANION GAP 18.5 (5-15); ASPARTATE AMNIOTRANSFERASE,AST 37 U/L (15-37); BILIRUBIN TOTAL 0.3 mg/dL (0.2-1.0); BLOOD UREA NITROGEN,BUN 21 mg/dL (7-18); BUN/CREATININE RATIO 16.2 (14-18); C-REACTIVE PROTEIN <0.2 mg/dL (<1.0); CARBON DIOXIDE,CO2 26 mEq/L (21-32); CHLORIDE,CL 103 mEq/L (98-107); CREATININE 1.3 mg/dL (0.55-1.02); EST CRCL DRUG DOSING (CG) 41.78 mL/min; ESTIMATED GFR 45 mL/min (>60); GLUCOSE RANDOM 330 mg/dL (70-99); POTASSIUM,K 4.5 mEq/L (3.5-5.1); PROTEIN TOTAL,TP 7.8 g/dl (6.4-8.2); SODIUM,NA 143 mEq/L (136-145); TROPONIN I HIGH SENSITIVITY 16 pg/mL (<=51)
[2023-07-23] MEDS ORDERED: fentaNYL 100 MCG/2 ML SDV IVPUSH ONE (16:06)
[2023-07-23] MEDS: Apixaban 5 MG Tab PO ONE (16:37)
[2023-07-23] MEDS ORDERED: Acetaminophen 325 MG Tab PO PRN (17:23)
[2023-07-23] MEDS ORDERED: Lidocaine 4% Crm 15 GM Tube TOP PRN (17:23)
[2023-07-23] MEDS ORDERED: Non-Formulary Medication 1 Each (Naloxone Hcl 4 MG Spray) NAS PRN (17:23)
[2023-07-23] MEDS ORDERED: hydrOXYzine HCl 25 MG Tab PO PRN (17:23)
[2023-07-23] MEDS: Azithromycin 500 MG in Sodium Chloride 0.9% 250 ML IV SCH (18:13)
[2023-07-23] MEDS: Nystatin Topical Powder 15 GM Bottle TOP SCH (20:43)
[2023-07-23] MEDS: Fluticasone NASAL Spray 16 GM Bottle NASBOTH SCH (20:43)
[2023-07-23] MEDS: Heparin Sodium 5,000 Units/ML Vial SUBCUT SCH (20:43)
[2023-07-23] MEDS: Morphine 15 MG Tab PO PRN (20:44)
[2023-07-23] MEDS: Morphine 15 MG Tab.ER PO SCH (20:45)
[2023-07-23] MEDS: OLANZapine 5 MG Tab PO SCH (20:46)
[2023-07-23] MEDS: tiZANidine 4 MG Tab PO SCH (20:46)
[2023-07-23] MEDS: Gabapentin 600 MG Tab PO SCH (20:47)
[2023-07-23] MEDS: Gabapentin 100 MG Cap PO SCH (20:47)
[2023-07-23] MEDS: Rosuvastatin 10 MG Tab PO SCH (20:47)
[2023-07-23] MEDS: Temazepam 7.5 MG Cap PO SCH (20:48)
[2023-07-23] MEDS: predniSONE 20 MG Tab PO SCH (20:48)
[2023-07-23] MEDS ORDERED: Morphine 30 MG Tab.ER PO SCH (21:00)
[2023-07-23] MEDS ORDERED: Non-Formulary Medication 1 Each (Gabapentin 800 MG Tablet) PO SCH (21:00)
[2023-07-24] MEDS: Pantoprazole 40 MG Tab.CR PO SCH (06:20)
[2023-07-24] MEDS: TRELEGY ELLIPTA PO SCH (08:55)
[2023-07-24] MEDS: Nicotine 14 MG/24 Hr Patch TRDERM SCH (09:49)
[2023-07-24] MEDS: Magnesium Oxide 400 MG Tab PO SCH (09:49)
[2023-07-24] MEDS: buPROPion 150 MG Tab.SR PO SCH (09:49)
[2023-07-24] MEDS: Lisinopril 10 MG Tab PO SCH (09:50)
[2023-07-24] MEDS: Sennosides 8.6 MG Tab PO PRN (09:51)
[2023-07-24] MEDS: guaiFENesin 600 MG Tab.ER PO PRN (09:51)
[2023-07-24] MEDS: ALPRAZolam 0.25 MG Tab PO PRN (09:51)
[2023-07-24] MEDS: LINACLOTIDE 145 MCG PO SCH (09:52)
[2023-07-24 10:00] LABS: A/G RATIO 0.8 (1-2); ALBUMIN 3.1 g/dl (3.4-5.0); ANION GAP 12.8 (5-15); BILIRUBIN TOTAL 0.2 mg/dL (0.2-1.0); CALCIUM 8.9 mg/dL (8.5-10.1); EST CRCL DRUG DOSING (CG) 48.45 mL/min; POTASSIUM,K 4.8 mEq/L (3.5-5.1); PROTEIN TOTAL,TP 6.9 g/dl (6.4-8.2)
[2023-07-24 10:20] LABS: BASOPHILS PERCENT AUTO 0.1 % (0.0-1.0); HEMOGLOBIN 10.6 gm/dl (12.0-16.0); IMMATURE GRAN ABSOLUTE AUTO 0.07 K/mm3 (0.00-0.05); IMMATURE GRAN PERCENT AUTO 0.5 % (0.0-0.4); MEAN CORPUSCULAR HEMOGLOBIN 27.8 pg (28.0-32.0); MEAN CORPUSCULAR HGB CONC 31.2 g/dl (32.0-36.0); MEAN CORPUSCULAR VOLUME 89.2 fl (83.0-99.0); MEAN PLATELET VOLUME 10.5 fl (9.4-12.3); MONOCYTES ABSOLUTE AUTO 0.7 K/mm3 (0.0-0.8); MONOCYTES PERCENT AUTO 5.2 % (0.0-8.0); NEUTROPHILS ABSOLUTE AUTO 10.7 K/mm3 (1.8-7.7); NEUTROPHILS PERCENT AUTO 79.2 % (41.0-71.0); NRBC ABSOLUTE 0.03 (0.00-0.02); NRBC PERCENT 0.2 % (0.0-0.2); PLATELET COUNT,PLT 298 K/mm3 (150-400); RED BLOOD CELL COUNT 3.81 M/mm3 (4.10-5.30); WHITE BLOOD CELL COUNT,WBC 13.46 K/mm3 (3.9-11.3)
[2023-07-24 11:07] LABS: APPEARANCE,URINE CLEAR (Clear); BILIRUBIN,URINE NEGATIVE (Negative); COLOR,URINE LIGHT YELLOW (Yellow); GLUCOSE,URINE NEGATIVE (Negative); KETONES,URINE NEGATIVE (Negative); LEUKOCYTE ESTERASE,URINE NEGATIVE (Negative); NITRITE,URINE NEGATIVE (Negative); OCCULT BLOOD,URINE TRACE-INTACT (Negative); PROTEIN,URINE NEGATIVE (Negative); UROBILINOGEN,URINE 0.2 (0.2-1.0)
[2023-07-24 11:21] LABS: EPITHELIAL CELLS,URINE 0-5 /hpf (0-5); WBC,URINE 0-5 /hpf (0-5)
[2023-07-24 11:22] LABS: BACTERIA,URINE RARE /hpf (FEW); MUCUS,URINE FEW /hpf (FEW)
[2023-07-24] MEDS ORDERED: Albuterol/Ipratropium 3.0-0.5 MG/3 ML Neb Soln NEB PRN (11:37)
[2023-07-24] MEDS: Metoprolol Tartrate 50 MG Tab PO SCH (17:45)
[2023-07-25] MEDS: Sodium Chloride 0.9% 500 ML IV ONE ×2 (01:31→03:15)
[2023-07-25 04:55] LABS: BASOPHILS PERCENT AUTO 0.1 % (0.0-1.0); EOSINOPHILS PERCENT AUTO 0.1 % (0.0-6.0); HEMATOCRIT 33.3 % (37.0-47.0); HEMOGLOBIN 10.4 gm/dl (12.0-16.0); IMMATURE GRAN ABSOLUTE AUTO 0.11 K/mm3 (0.00-0.05); IMMATURE GRAN PERCENT AUTO 0.7 % (0.0-0.4); LYMPHOCYTES ABSOLUTE AUTO 2.1 K/mm3 (1.0-4.8); LYMPHOCYTES PERCENT AUTO 13.8 % (24.0-44.0); MEAN CORPUSCULAR HEMOGLOBIN 28.4 pg (28.0-32.0); MEAN CORPUSCULAR HGB CONC 31.2 g/dl (32.0-36.0); MEAN PLATELET VOLUME 10.3 fl (9.4-12.3); MONOCYTES ABSOLUTE AUTO 0.7 K/mm3 (0.0-0.8); MONOCYTES PERCENT AUTO 4.7 % (0.0-8.0); NEUTROPHILS ABSOLUTE AUTO 12.4 K/mm3 (1.8-7.7); NEUTROPHILS PERCENT AUTO 80.6 % (41.0-71.0); NRBC ABSOLUTE 0.04 (0.00-0.02); NRBC PERCENT 0.3 % (0.0-0.2); PLATELET COUNT,PLT 289 K/mm3 (150-400); RED BLOOD CELL COUNT 3.66 M/mm3 (4.10-5.30); WHITE BLOOD CELL COUNT,WBC 15.43 K/mm3 (3.9-11.3)
[2023-07-25 05:28] LABS: A/G RATIO 0.8 (1-2); ALBUMIN 2.8 g/dl (3.4-5.0); ANION GAP 14.4 (5-15); BILIRUBIN TOTAL 0.3 mg/dL (0.2-1.0); CALCIUM 8.4 mg/dL (8.5-10.1); EST CRCL DRUG DOSING (CG) 48.45 mL/min; POTASSIUM,K 4.4 mEq/L (3.5-5.1); PROTEIN TOTAL,TP 6.5 g/dl (6.4-8.2)
[2023-07-25] MEDS: Midazolam 1 MG/ML 2 ML SDV IVPUSH ONE (09:54)
[2023-07-25] MEDS: Azithromycin 250 MG Tab PO SCH (17:42)
[2023-07-26 07:57] LABS: BASOPHILS PERCENT AUTO 0.1 % (0.0-1.0); HEMATOCRIT 34.5 % (37.0-47.0); HEMOGLOBIN 10.7 gm/dl (12.0-16.0); IMMATURE GRAN PERCENT AUTO 0.6 % (0.0-0.4); LYMPHOCYTES ABSOLUTE AUTO 1.8 K/mm3 (1.0-4.8); LYMPHOCYTES PERCENT AUTO 11.9 % (24.0-44.0); MEAN CORPUSCULAR HEMOGLOBIN 28.2 pg (28.0-32.0); MEAN CORPUSCULAR VOLUME 90.8 fl (83.0-99.0); MEAN PLATELET VOLUME 9.7 fl (9.4-12.3); MONOCYTES ABSOLUTE AUTO 0.7 K/mm3 (0.0-0.8); MONOCYTES PERCENT AUTO 4.7 % (0.0-8.0); NEUTROPHILS ABSOLUTE AUTO 12.7 K/mm3 (1.8-7.7); NEUTROPHILS PERCENT AUTO 82.7 % (41.0-71.0); NRBC ABSOLUTE 0.02 (0.00-0.02); NRBC PERCENT 0.1 % (0.0-0.2); PLATELET COUNT,PLT 270 K/mm3 (150-400); WHITE BLOOD CELL COUNT,WBC 15.42 K/mm3 (3.9-11.3)
[2023-07-26 08:35] LABS: ANION GAP 13.5 (5-15); BUN/CREATININE RATIO 29.1 (14-18); CALCIUM 8.4 mg/dL (8.5-10.1); CREATININE 1.1 mg/dL (0.55-1.02); EST CRCL DRUG DOSING (CG) 44.05 mL/min; MAGNESIUM 1.8 mg/dL (1.8-2.4); POTASSIUM,K 4.5 mEq/L (3.5-5.1)
[2023-07-26] MEDS ORDERED: Sodium Chloride 1 GM Tab PO ONE (10:00)
[2023-07-26] MEDS: Sodium Chloride 1 GM Tab PO ONE (12:03)
[2023-07-26 12:11] VITALS: BP 119/59; PULSE 48
== END 2023-07-26 13:15 | disposition home or self-care (01) | DRG 191 ==
LOC: JD.ED 14:30 → JD.ICU 17:31 → JD.MS 07-26 07:42
PROVIDERS: ADMIT Internal Medicine; ATTEND Internal Medicine
PROC: 5A09357 Assistance with Respiratory Ventilation, Less than 24 Consecutive Hours, Continuous Positive Airway Pressure (ICD-10-PCS; principal; 2023-07-23)
PROC: 4A033R1 Measurement of Arterial Saturation, Peripheral, Percutaneous Approach (ICD-10-PCS; 2023-07-23)
DX: R06.03 Acute respiratory distress (principal); J44.1 Chronic obstructive pulmonary disease with (acute) exacerbation; J96.10 Chronic respiratory failure, unspecified whether with hypoxia or hypercapnia; Z68.41 Body mass index [BMI] 40.0-44.9, adult; I48.91 Unspecified atrial fibrillation; J45.909 Unspecified asthma, uncomplicated; I50.9 Heart failure, unspecified; E66.9 Obesity, unspecified; E78.00 Pure hypercholesterolemia, unspecified; I11.0 Hypertensive heart disease with heart failure; K59.09 Other constipation; Z68.30 Body mass index [BMI] 30.0-30.9, adult; K21.9 Gastro-esophageal reflux disease without esophagitis; F41.9 Anxiety disorder, unspecified; F42.9 Obsessive-compulsive disorder, unspecified; G62.9 Polyneuropathy, unspecified; G89.4 Chronic pain syndrome; I44.7 Left bundle-branch block, unspecified; E66.01 Morbid (severe) obesity due to excess calories; F31.9 Bipolar disorder, unspecified; M79.7 Fibromyalgia; J45.20 Mild intermittent asthma, uncomplicated; G47.33 Obstructive sleep apnea (adult) (pediatric); M54.9 Dorsalgia, unspecified; R79.89 Other specified abnormal findings of blood chemistry; Z66 Do not resuscitate; I95.9 Hypotension, unspecified; K58.9 Irritable bowel syndrome, unspecified; I08.3 Combined rheumatic disorders of mitral, aortic and tricuspid valves; Z88.0 Allergy status to penicillin; Z88.5 Allergy status to narcotic agent; Z88.8 Allergy status to other drugs, medicaments and biological substances; Z79.899 Other long term (current) drug therapy; Z79.891 Long term (current) use of opiate analgesic; Z87.81 Personal history of (healed) traumatic fracture; Z98.890 Other specified postprocedural states; Z11.52 Encounter for screening for COVID-19; Z87.891 Personal history of nicotine dependence; Z99.81 Dependence on supplemental oxygen
CPT/HCPCS: 0241U; 36415; 36600; 71045; 80048; 80053; 81001; 82803; 83735; 83880; 84145; 84484; 85025; 86140; 93005; 93307; 94640; 94660; 94667; 94668; 94760; 94761; 96365; 96366; 96367; 97110; 97161; 99285; 93010; 97162-GP; A9270-GY; J0282; J0456; J1644; J3490; J7030; J7050; J7512

== ENCOUNTER 2023-07-30 15:24 | Inpatient (IN) | payer MEDICARE ==
[2023-07-30 15:44] LABS: BASE EXCESS ARTERIAL 2.8 (-2-2.0); BICARBONATE,ARTERIAL 32.8 meq/L (22.0-26.0); O2 SATURATION ARTERIAL 91.3 % (96.0-97.0); PCO2 ARTERIAL 86.9 mmHg (35.0-45.0)
[2023-07-30 15:44] LABS: BASOPHILS ABSOLUTE AUTO 0.1 K/mm3 (0.0-0.2); BASOPHILS PERCENT AUTO 0.2 % (0.0-1.0); EOSINOPHILS ABSOLUTE AUTO 0.2 K/mm3 (0.0-0.4); EOSINOPHILS PERCENT AUTO 0.7 % (0.0-6.0); HEMOGLOBIN 11.8 gm/dl (12.0-16.0); IMMATURE GRAN ABSOLUTE AUTO 0.21 K/mm3 (0.00-0.05); IMMATURE GRAN PERCENT AUTO 0.9 % (0.0-0.4); LYMPHOCYTES ABSOLUTE AUTO 5.7 K/mm3 (1.0-4.8); LYMPHOCYTES PERCENT AUTO 23.8 % (24.0-44.0); MEAN CORPUSCULAR HEMOGLOBIN 28.2 pg (28.0-32.0); MEAN CORPUSCULAR HGB CONC 29.5 g/dl (32.0-36.0); MEAN CORPUSCULAR VOLUME 95.7 fl (83.0-99.0); MEAN PLATELET VOLUME 9.4 fl (9.4-12.3); MONOCYTES ABSOLUTE AUTO 1.8 K/mm3 (0.0-0.8); MONOCYTES PERCENT AUTO 7.3 % (0.0-8.0); NEUTROPHILS ABSOLUTE AUTO 16.2 K/mm3 (1.8-7.7); NEUTROPHILS PERCENT AUTO 67.1 % (41.0-71.0); NRBC ABSOLUTE 0.02 (0.00-0.02); NRBC PERCENT 0.1 % (0.0-0.2); PLATELET COUNT,PLT 362 K/mm3 (150-400); RED BLOOD CELL COUNT 4.18 M/mm3 (4.10-5.30); WHITE BLOOD CELL COUNT,WBC 24.11 K/mm3 (3.9-11.3)
[2023-07-30] MEDS: Sodium Chloride 0.9% 10 ML Syringe FLUSH PRN (15:59)
[2023-07-30] MEDS: Furosemide 40 MG/4 ML VIAL IVPUSH ONE (15:59)
[2023-07-30] MEDS: Diltiazem 25 MG/5 ML SDV IVPUSH ONE (15:59)
[2023-07-30 16:18] LABS: A/G RATIO 0.7 (1-2); ALBUMIN 3.3 g/dl (3.4-5.0); ANION GAP 13.8 (5-15); BILIRUBIN TOTAL 0.3 mg/dL (0.2-1.0); BUN/CREATININE RATIO 12.7 (14-18); C-REACTIVE PROTEIN 3.4 mg/dL (<1.0); CALCIUM 9.4 mg/dL (8.5-10.1); CREATININE 1.1 mg/dL (0.55-1.02); EST CRCL DRUG DOSING (CG) 44.05 mL/min; MAGNESIUM 1.9 mg/dL (1.8-2.4); POTASSIUM,K 4.8 mEq/L (3.5-5.1); PROTEIN TOTAL,TP 7.8 g/dl (6.4-8.2)
[2023-07-30] MEDS: Diltiazem 125 MG in Sodium Chloride 0.9% 100 ML IV SCH (16:18)
[2023-07-30] MEDS ORDERED: Acetaminophen 325 MG Tab PO PRN (17:55)
[2023-07-30] MEDS ORDERED: Polyethylene Glycol 3350 Powder 17 GM Packet PO PRN (18:44)
[2023-07-30] MEDS ORDERED: Glucagon,Human Recombinant 1 MG Vial IM PRN (18:45)
[2023-07-30] MEDS ORDERED: 50% Dextrose in Water 50 ML Syringe IVPUSH PRN (18:45)
[2023-07-30 18:58] LABS: BASE EXCESS ARTERIAL 9.8 (-2-2.0); BICARBONATE,ARTERIAL 37.1 meq/L (22.0-26.0); O2 SATURATION ARTERIAL 91.5 % (96.0-97.0)
[2023-07-30] MEDS: Midazolam 1 MG/ML 2 ML SDV IVPUSH ONE (19:03)
[2023-07-30] MEDS: Apixaban 5 MG Tab PO SCH (19:15)
[2023-07-30 19:43] LABS: APPEARANCE,URINE CLEAR (Clear); BILIRUBIN,URINE NEGATIVE (Negative); COLOR,URINE YELLOW (Yellow); GLUCOSE,URINE NEGATIVE (Negative); KETONES,URINE NEGATIVE (Negative); LEUKOCYTE ESTERASE,URINE NEGATIVE (Negative); NITRITE,URINE NEGATIVE (Negative); OCCULT BLOOD,URINE NEGATIVE (Negative); PROTEIN,URINE NEGATIVE (Negative); UROBILINOGEN,URINE 0.2 (0.2-1.0)
[2023-07-30] MEDS: Metoprolol Tartrate 25 MG Tab PO SCH (19:51)
[2023-07-30] MEDS: Rosuvastatin 10 MG Tab PO SCH (20:03)
[2023-07-30] MEDS: Sodium Chloride 0.9% 250 ML IV SCH (21:10)
[2023-07-30] MEDS: Sodium Chloride 0.9% 250 ML ONE (22:26)
[2023-07-31] MEDS: Morphine 2 MG/ML SYRINGE IVPUSH PRN (03:05)
[2023-07-31 06:58] LABS: A/G RATIO 0.7 (1-2); ANION GAP 9.5 (5-15); BASOPHILS PERCENT AUTO 0.2 % (0.0-1.0); BILIRUBIN TOTAL 0.4 mg/dL (0.2-1.0); BUN/CREATININE RATIO 15.5 (14-18); CALCIUM 9.1 mg/dL (8.5-10.1); CREATININE 1.1 mg/dL (0.55-1.02); EOSINOPHILS ABSOLUTE AUTO 0.1 K/mm3 (0.0-0.4); EOSINOPHILS PERCENT AUTO 0.7 % (0.0-6.0); EST CRCL DRUG DOSING (CG) 44.05 mL/min; HEMATOCRIT 35.6 % (37.0-47.0); HEMOGLOBIN 10.9 gm/dl (12.0-16.0); IMMATURE GRAN ABSOLUTE AUTO 0.04 K/mm3 (0.00-0.05); IMMATURE GRAN PERCENT AUTO 0.3 % (0.0-0.4); LYMPHOCYTES ABSOLUTE AUTO 3.2 K/mm3 (1.0-4.8); LYMPHOCYTES PERCENT AUTO 23.9 % (24.0-44.0); MEAN CORPUSCULAR HEMOGLOBIN 28.3 pg (28.0-32.0); MEAN CORPUSCULAR HGB CONC 30.6 g/dl (32.0-36.0); MEAN PLATELET VOLUME 9.6 fl (9.4-12.3); MONOCYTES ABSOLUTE AUTO 1.3 K/mm3 (0.0-0.8); MONOCYTES PERCENT AUTO 9.6 % (0.0-8.0); NEUTROPHILS ABSOLUTE AUTO 8.7 K/mm3 (1.8-7.7); NEUTROPHILS PERCENT AUTO 65.3 % (41.0-71.0); POTASSIUM,K 4.5 mEq/L (3.5-5.1); PROTEIN TOTAL,TP 7.1 g/dl (6.4-8.2); RED BLOOD CELL COUNT 3.85 M/mm3 (4.10-5.30); WHITE BLOOD CELL COUNT,WBC 13.27 K/mm3 (3.9-11.3)
[2023-07-31 07:01] LABS: MEAN CORPUSCULAR VOLUME 92.5 fl (83.0-99.0); PLATELET COUNT,PLT 263 K/mm3 (150-400)
[2023-07-31] MEDS: Insulin Lispro 100 Unit/ML 3 ML KwikPen SUBCUT SCH (07:18)
[2023-07-31] MEDS: buPROPion 150 MG Tab.SR PO SCH (07:32)
[2023-07-31] MEDS: Acetaminophen/HYDROcodone 325-5 MG Tab PO PRN (07:36)
[2023-07-31] MEDS: Bisacodyl 5 MG Tab PO SCH (08:07)
[2023-07-31] MEDS: Furosemide 20 MG/2 ML VIAL IVPUSH SCH (08:07)
[2023-07-31] MEDS: ALPRAZolam 0.25 MG Tab PO PRN ×2 (08:07→20:40)
[2023-07-31] MEDS: Sennosides 8.6 MG Tab PO SCH (08:07)
[2023-07-31] MEDS: Metoprolol Tartrate 25 MG Tab PO ONE (10:22)
[2023-07-31 12:42] LABS: BORDETELLA PARAPERT IS1001 Not Detected (Not Detected)
[2023-07-31 13:39] LABS: HEMOGLOBIN A1C 6.2 %
[2023-07-31] MEDS: Diltiazem 125 MG in Sodium Chloride 0.9% 100 ML IV SCH (13:48)
[2023-07-31] MEDS ORDERED: Naloxone 0.4 MG/ML SDV IVPUSH PRN (19:44)
[2023-07-31] MEDS: Morphine 15 MG Tab.ER PO SCH (20:36)
[2023-07-31] MEDS: OLANZapine 5 MG Tab PO SCH (20:38)
[2023-07-31] MEDS: Metoprolol Tartrate 25 MG Tab PO SCH (20:38)
[2023-07-31] MEDS: Gabapentin 100 MG Cap PO SCH (20:40)
[2023-07-31] MEDS: Gabapentin 600 MG Tab PO SCH (20:41)
[2023-07-31] MEDS: Albuterol/Ipratropium 3.0-0.5 MG/3 ML Neb Soln NEB PRN (21:00)
[2023-07-31] MEDS ORDERED: Metoprolol Tartrate 50 MG Tab PO SCH (21:00)
[2023-08-01 05:04] LABS: BASOPHILS PERCENT AUTO 0.1 % (0.0-1.0); EOSINOPHILS ABSOLUTE AUTO 0.1 K/mm3 (0.0-0.4); EOSINOPHILS PERCENT AUTO 0.3 % (0.0-6.0); HEMOGLOBIN 11.5 gm/dl (12.0-16.0); IMMATURE GRAN ABSOLUTE AUTO 0.08 K/mm3 (0.00-0.05); IMMATURE GRAN PERCENT AUTO 0.4 % (0.0-0.4); LYMPHOCYTES ABSOLUTE AUTO 2.7 K/mm3 (1.0-4.8); LYMPHOCYTES PERCENT AUTO 14.4 % (24.0-44.0); MEAN CORPUSCULAR HEMOGLOBIN 27.4 pg (28.0-32.0); MEAN CORPUSCULAR HGB CONC 30.3 g/dl (32.0-36.0); MEAN CORPUSCULAR VOLUME 90.5 fl (83.0-99.0); MEAN PLATELET VOLUME 9.6 fl (9.4-12.3); MONOCYTES ABSOLUTE AUTO 1.6 K/mm3 (0.0-0.8); MONOCYTES PERCENT AUTO 8.7 % (0.0-8.0); NEUTROPHILS ABSOLUTE AUTO 14.4 K/mm3 (1.8-7.7); NEUTROPHILS PERCENT AUTO 76.1 % (41.0-71.0); PLATELET COUNT,PLT 322 K/mm3 (150-400); WHITE BLOOD CELL COUNT,WBC 18.93 K/mm3 (3.9-11.3)
[2023-08-01] MEDS: Diltiazem 25 MG/5 ML SDV IVPUSH ONE (05:14)
[2023-08-01 05:36] LABS: A/G RATIO 0.7 (1-2); ALBUMIN 3.2 g/dl (3.4-5.0); BILIRUBIN TOTAL 0.6 mg/dL (0.2-1.0); BUN/CREATININE RATIO 21.1 (14-18); CALCIUM 9.7 mg/dL (8.5-10.1); CREATININE 0.9 mg/dL (0.55-1.02); EST CRCL DRUG DOSING (CG) 53.83 mL/min; MAGNESIUM 1.7 mg/dL (1.8-2.4); PROTEIN TOTAL,TP 7.6 g/dl (6.4-8.2)
[2023-08-01 06:33] LABS: SLIDE REVIEW ABNORMAL SMEAR
[2023-08-01] MEDS: Magnesium Sulfate/Water 2 GM in Premix Bag 1 BAG IV ONE (08:13)
[2023-08-01] MEDS: Metoprolol Tartrate 25 MG Tab PO ONE (10:14)
[2023-08-01] MEDS ORDERED: Sennosides 8.6 MG Tab PO PRN (12:05)
[2023-08-01] MEDS: Morphine 2 MG/ML SYRINGE IVPUSH PRN (15:48)
[2023-08-01] MEDS: Metoprolol Tartrate 50 MG Tab PO SCH (20:03)
[2023-08-01] MEDS: Temazepam 15 MG Cap PO SCH (20:03)
[2023-08-01] MEDS: Fluticasone NASAL Spray 16 GM Bottle NASBOTH SCH (20:04)
[2023-08-01] MEDS: Temazepam 7.5 MG Cap PO SCH (20:06)
[2023-08-02 04:55] LABS: BASOPHILS PERCENT AUTO 0.2 % (0.0-1.0); EOSINOPHILS ABSOLUTE AUTO 0.1 K/mm3 (0.0-0.4); EOSINOPHILS PERCENT AUTO 0.7 % (0.0-6.0); IMMATURE GRAN ABSOLUTE AUTO 0.03 K/mm3 (0.00-0.05); IMMATURE GRAN PERCENT AUTO 0.3 % (0.0-0.4); LYMPHOCYTES ABSOLUTE AUTO 2.9 K/mm3 (1.0-4.8); LYMPHOCYTES PERCENT AUTO 24.6 % (24.0-44.0); MEAN CORPUSCULAR HEMOGLOBIN 27.8 pg (28.0-32.0); MEAN CORPUSCULAR HGB CONC 30.6 g/dl (32.0-36.0); MEAN CORPUSCULAR VOLUME 90.9 fl (83.0-99.0); MEAN PLATELET VOLUME 9.3 fl (9.4-12.3); MONOCYTES PERCENT AUTO 8.5 % (0.0-8.0); NEUTROPHILS ABSOLUTE AUTO 7.7 K/mm3 (1.8-7.7); NEUTROPHILS PERCENT AUTO 65.7 % (41.0-71.0); PLATELET COUNT,PLT 240 K/mm3 (150-400); RED BLOOD CELL COUNT 3.96 M/mm3 (4.10-5.30); WHITE BLOOD CELL COUNT,WBC 11.69 K/mm3 (3.9-11.3)
[2023-08-02 05:14] LABS: A/G RATIO 0.7 (1-2); ALBUMIN 2.9 g/dl (3.4-5.0); ANION GAP 11.4 (5-15); BILIRUBIN TOTAL 0.4 mg/dL (0.2-1.0); BUN/CREATININE RATIO 21.3 (14-18); CALCIUM 8.8 mg/dL (8.5-10.1); CREATININE 0.8 mg/dL (0.55-1.02); EST CRCL DRUG DOSING (CG) 60.56 mL/min; POTASSIUM,K 3.4 mEq/L (3.5-5.1); PROTEIN TOTAL,TP 7.2 g/dl (6.4-8.2)
[2023-08-02] MEDS: Fluticasone/Umeclidin/Vilanter [Trelegy Ellipta 100-62.5- INH SCH (08:03)
[2023-08-02] MEDS: Furosemide 20 MG Tab PO SCH (08:09)
[2023-08-02] MEDS: Pantoprazole 40 MG Tab.CR PO SCH (08:10)
[2023-08-02] MEDS: Potassium Chloride 10 MEQ in Premix Bag 1 BAG IV ONE (10:14)
[2023-08-02] MEDS: Metoprolol Tartrate 25 MG Tab PO ONE (10:14)
[2023-08-02] MEDS: Potassium Chloride 10 MEQ in Premix Bag 1 BAG IV SCH (12:54)
[2023-08-02] MEDS: Metoprolol Tartrate 25 MG Tab PO SCH (20:35)
[2023-08-03 04:43] LABS: BASOPHILS PERCENT AUTO 0.3 % (0.0-1.0); EOSINOPHILS ABSOLUTE AUTO 0.1 K/mm3 (0.0-0.4); EOSINOPHILS PERCENT AUTO 0.7 % (0.0-6.0); HEMATOCRIT 36.6 % (37.0-47.0); HEMOGLOBIN 11.1 gm/dl (12.0-16.0); IMMATURE GRAN ABSOLUTE AUTO 0.04 K/mm3 (0.00-0.05); IMMATURE GRAN PERCENT AUTO 0.4 % (0.0-0.4); LYMPHOCYTES ABSOLUTE AUTO 2.8 K/mm3 (1.0-4.8); LYMPHOCYTES PERCENT AUTO 25.2 % (24.0-44.0); MEAN CORPUSCULAR HEMOGLOBIN 27.7 pg (28.0-32.0); MEAN CORPUSCULAR HGB CONC 30.3 g/dl (32.0-36.0); MEAN CORPUSCULAR VOLUME 91.3 fl (83.0-99.0); MEAN PLATELET VOLUME 9.6 fl (9.4-12.3); MONOCYTES ABSOLUTE AUTO 0.9 K/mm3 (0.0-0.8); MONOCYTES PERCENT AUTO 8.3 % (0.0-8.0); NEUTROPHILS ABSOLUTE AUTO 7.2 K/mm3 (1.8-7.7); NEUTROPHILS PERCENT AUTO 65.1 % (41.0-71.0); PLATELET COUNT,PLT 242 K/mm3 (150-400); RED BLOOD CELL COUNT 4.01 M/mm3 (4.10-5.30); WHITE BLOOD CELL COUNT,WBC 10.97 K/mm3 (3.9-11.3)
[2023-08-03 05:41] LABS: A/G RATIO 0.7 (1-2); ALBUMIN 2.8 g/dl (3.4-5.0); ANION GAP 12.3 (5-15); BILIRUBIN TOTAL 0.3 mg/dL (0.2-1.0); BUN/CREATININE RATIO 23.8 (14-18); CALCIUM 9.1 mg/dL (8.5-10.1); CREATININE 0.8 mg/dL (0.55-1.02); EST CRCL DRUG DOSING (CG) 60.56 mL/min; POTASSIUM,K 4.3 mEq/L (3.5-5.1)
[2023-08-03] MEDS: Metoprolol Tartrate 100 MG Tab PO ONE (08:08)
[2023-08-03] MEDS: Metoprolol Tartrate 100 MG Tab PO SCH (20:07)
[2023-08-04 06:16] LABS: BASOPHILS PERCENT AUTO 0.3 % (0.0-1.0); EOSINOPHILS ABSOLUTE AUTO 0.1 K/mm3 (0.0-0.4); EOSINOPHILS PERCENT AUTO 1.1 % (0.0-6.0); HEMATOCRIT 36.8 % (37.0-47.0); HEMOGLOBIN 11.1 gm/dl (12.0-16.0); IMMATURE GRAN ABSOLUTE AUTO 0.04 K/mm3 (0.00-0.05); IMMATURE GRAN PERCENT AUTO 0.4 % (0.0-0.4); LYMPHOCYTES PERCENT AUTO 26.4 % (24.0-44.0); MEAN CORPUSCULAR HEMOGLOBIN 28.2 pg (28.0-32.0); MEAN CORPUSCULAR HGB CONC 30.2 g/dl (32.0-36.0); MEAN CORPUSCULAR VOLUME 93.4 fl (83.0-99.0); MEAN PLATELET VOLUME 9.4 fl (9.4-12.3); MONOCYTES PERCENT AUTO 9.2 % (0.0-8.0); NEUTROPHILS PERCENT AUTO 62.6 % (41.0-71.0); PLATELET COUNT,PLT 231 K/mm3 (150-400); RED BLOOD CELL COUNT 3.94 M/mm3 (4.10-5.30); WHITE BLOOD CELL COUNT,WBC 11.17 K/mm3 (3.9-11.3)
[2023-08-04 06:20] LABS: ANION GAP 9.4 (5-15); BUN/CREATININE RATIO 22.2 (14-18); CALCIUM 8.7 mg/dL (8.5-10.1); CREATININE 0.9 mg/dL (0.55-1.02); EST CRCL DRUG DOSING (CG) 53.83 mL/min; POTASSIUM,K 4.4 mEq/L (3.5-5.1)
[2023-08-04] MEDS: Metoprolol Succinate 50 MG Tab.ER PO SCH (08:29)
[2023-08-04] MEDS: Ondansetron 4 MG/2 ML SDV IV PRN (08:55)
[2023-08-05 05:53] LABS: BASOPHILS PERCENT AUTO 0.2 % (0.0-1.0); EOSINOPHILS ABSOLUTE AUTO 0.1 K/mm3 (0.0-0.4); EOSINOPHILS PERCENT AUTO 0.9 % (0.0-6.0); HEMATOCRIT 37.4 % (37.0-47.0); HEMOGLOBIN 11.5 gm/dl (12.0-16.0); IMMATURE GRAN ABSOLUTE AUTO 0.04 K/mm3 (0.00-0.05); IMMATURE GRAN PERCENT AUTO 0.4 % (0.0-0.4); LYMPHOCYTES ABSOLUTE AUTO 2.9 K/mm3 (1.0-4.8); MEAN CORPUSCULAR HEMOGLOBIN 27.9 pg (28.0-32.0); MEAN CORPUSCULAR HGB CONC 30.7 g/dl (32.0-36.0); MEAN CORPUSCULAR VOLUME 90.8 fl (83.0-99.0); MEAN PLATELET VOLUME 9.5 fl (9.4-12.3); MONOCYTES ABSOLUTE AUTO 0.8 K/mm3 (0.0-0.8); MONOCYTES PERCENT AUTO 7.3 % (0.0-8.0); NEUTROPHILS ABSOLUTE AUTO 7.2 K/mm3 (1.8-7.7); NEUTROPHILS PERCENT AUTO 65.2 % (41.0-71.0); PLATELET COUNT,PLT 216 K/mm3 (150-400); RED BLOOD CELL COUNT 4.12 M/mm3 (4.10-5.30); WHITE BLOOD CELL COUNT,WBC 10.98 K/mm3 (3.9-11.3)
[2023-08-05 06:31] LABS: BUN/CREATININE RATIO 27.1 (14-18); CALCIUM 9.1 mg/dL (8.5-10.1); CREATININE 0.7 mg/dL (0.55-1.02); EST CRCL DRUG DOSING (CG) 69.21 mL/min
[2023-08-05] MEDS: Metoprolol Succinate 50 MG Tab.ER PO ONE (08:04)
[2023-08-05] MEDS: Metoprolol Succinate 50 MG Tab.ER PO SCH (08:18)
[2023-08-05] MEDS: Metoprolol Tartrate 5 MG/5 ML SDV IVPUSH PRN (11:15)
[2023-08-05 15:31] LABS: TSH 2.363 uIU/mL (0.358-3.74)
[2023-08-05] MEDS: Diltiazem IR 30 MG Tab PO SCH (17:51)
[2023-08-06 05:55] LABS: BASOPHILS PERCENT AUTO 0.2 % (0.0-1.0); EOSINOPHILS ABSOLUTE AUTO 0.1 K/mm3 (0.0-0.4); EOSINOPHILS PERCENT AUTO 1.1 % (0.0-6.0); HEMATOCRIT 35.6 % (37.0-47.0); HEMOGLOBIN 11.1 gm/dl (12.0-16.0); IMMATURE GRAN ABSOLUTE AUTO 0.04 K/mm3 (0.00-0.05); IMMATURE GRAN PERCENT AUTO 0.4 % (0.0-0.4); LYMPHOCYTES ABSOLUTE AUTO 2.4 K/mm3 (1.0-4.8); LYMPHOCYTES PERCENT AUTO 26.2 % (24.0-44.0); MEAN CORPUSCULAR HEMOGLOBIN 27.9 pg (28.0-32.0); MEAN CORPUSCULAR HGB CONC 31.2 g/dl (32.0-36.0); MEAN CORPUSCULAR VOLUME 89.4 fl (83.0-99.0); MEAN PLATELET VOLUME 9.2 fl (9.4-12.3); MONOCYTES ABSOLUTE AUTO 0.8 K/mm3 (0.0-0.8); MONOCYTES PERCENT AUTO 8.2 % (0.0-8.0); NEUTROPHILS ABSOLUTE AUTO 5.9 K/mm3 (1.8-7.7); NEUTROPHILS PERCENT AUTO 63.9 % (41.0-71.0); PLATELET COUNT,PLT 198 K/mm3 (150-400); RED BLOOD CELL COUNT 3.98 M/mm3 (4.10-5.30); WHITE BLOOD CELL COUNT,WBC 9.23 K/mm3 (3.9-11.3)
[2023-08-06 06:20] LABS: ANION GAP 8.8 (5-15); CREATININE 0.8 mg/dL (0.55-1.02); EST CRCL DRUG DOSING (CG) 60.56 mL/min; POTASSIUM,K 3.8 mEq/L (3.5-5.1)
[2023-08-06] MEDS: Diltiazem 120 MG Cap.CD PO SCH (12:36)
[2023-08-06] MEDS: Diclofenac Sodium 1% Gel 100 GM Tube TOP PRN (19:52)
[2023-08-07 10:42] VITALS: BP 111/82; PULSE 89
== END 2023-08-07 10:41 | disposition other institution (70) | DRG 291 ==
LOC: JD.ED 15:24 → JD.ICU 18:02 → JD.MS 08-04 13:19
PROVIDERS: ADMIT Student in an Organized Health Care Education/Training Program; ATTEND Internal Medicine
PROC: 4A033R1 Measurement of Arterial Saturation, Peripheral, Percutaneous Approach (ICD-10-PCS; principal; 2023-07-30)
DX: I11.0 Hypertensive heart disease with heart failure (principal); I50.33 Acute on chronic diastolic (congestive) heart failure; J96.21 Acute and chronic respiratory failure with hypoxia; J96.22 Acute and chronic respiratory failure with hypercapnia; N17.9 Acute kidney failure, unspecified; J44.9 Chronic obstructive pulmonary disease, unspecified; E66.9 Obesity, unspecified; I48.91 Unspecified atrial fibrillation; E66.01 Morbid (severe) obesity due to excess calories; F41.9 Anxiety disorder, unspecified; F31.9 Bipolar disorder, unspecified; D72.829 Elevated white blood cell count, unspecified; Z68.39 Body mass index [BMI] 39.0-39.9, adult; I44.7 Left bundle-branch block, unspecified; M79.7 Fibromyalgia; R73.03 Prediabetes; G47.33 Obstructive sleep apnea (adult) (pediatric); I73.9 Peripheral vascular disease, unspecified; G62.9 Polyneuropathy, unspecified; G89.4 Chronic pain syndrome; R73.9 Hyperglycemia, unspecified; E83.42 Hypomagnesemia; E87.6 Hypokalemia; K21.9 Gastro-esophageal reflux disease without esophagitis; M54.9 Dorsalgia, unspecified; I95.9 Hypotension, unspecified; E78.00 Pure hypercholesterolemia, unspecified; K59.09 Other constipation; Z98.890 Other specified postprocedural states; Z99.81 Dependence on supplemental oxygen; Z79.899 Other long term (current) drug therapy; Z88.0 Allergy status to penicillin; Z79.01 Long term (current) use of anticoagulants; Z88.5 Allergy status to narcotic agent; Z88.8 Allergy status to other drugs, medicaments and biological substances; Z68.38 Body mass index [BMI] 38.0-38.9, adult
CPT/HCPCS: 36415; 36600; 71045; 71045-26; 80048; 80053; 81003; 82803; 82947; 83036; 83735; 83880; 84443; 84484; 85025; 86140; 87486; 87581; 87633; 93005; 93010; 94640; 94660; 94760; 94761; 96365; 96375; 97162-GP; 99285; 99285-25; A9270-GY; J1940; J2270; J2405; J3475; J3480; J3490; J7050; J7620-GY

== ENCOUNTER 2024-03-08 14:01 | Inpatient (IN) | payer MEDICARE, OTHER ==
[2024-03-08 15:02] LABS: BASOPHILS PERCENT AUTO 0.2 % (0.0-1.0); HEMATOCRIT 41.1 % (37.0-47.0); HEMOGLOBIN 12.6 gm/dl (12.0-16.0); IMMATURE GRAN ABSOLUTE AUTO 0.06 K/mm3 (0.00-0.05); IMMATURE GRAN PERCENT AUTO 0.5 % (0.0-0.4); LYMPHOCYTES ABSOLUTE AUTO 1.1 K/mm3 (1.0-4.8); MEAN CORPUSCULAR HEMOGLOBIN 28.8 pg (28.0-32.0); MEAN CORPUSCULAR HGB CONC 30.7 g/dl (32.0-36.0); MEAN CORPUSCULAR VOLUME 94.1 fl (83.0-99.0); MEAN PLATELET VOLUME 9.9 fl (9.4-12.3); MONOCYTES ABSOLUTE AUTO 1.2 K/mm3 (0.0-0.8); MONOCYTES PERCENT AUTO 8.7 % (0.0-8.0); NEUTROPHILS PERCENT AUTO 82.6 % (41.0-71.0); PLATELET COUNT,PLT 262 K/mm3 (150-400); RED BLOOD CELL COUNT 4.37 M/mm3 (4.10-5.30); WHITE BLOOD CELL COUNT,WBC 13.31 K/mm3 (3.9-11.3)
[2024-03-08 15:24] LABS: A/G RATIO 0.4 (1-2); ALBUMIN 2.4 g/dl (3.4-5.0); ANION GAP 11.8 (5-15); BILIRUBIN TOTAL 0.4 mg/dL (0.2-1.0); BUN/CREATININE RATIO 20.9 (14-18); CALCIUM 9.4 mg/dL (8.5-10.1); CREATININE 1.1 mg/dL (0.55-1.02); EST CRCL DRUG DOSING (CG) 41.68 mL/min; POTASSIUM,K 3.8 mEq/L (3.5-5.1); PROTEIN TOTAL,TP 8.1 g/dl (6.4-8.2)
[2024-03-08] MEDS: Sodium Chloride 0.9% 10 ML Syringe FLUSH PRN (15:45)
[2024-03-08] MEDS: Furosemide 40 MG/4 ML VIAL IVPUSH ONE ×2 (15:46→21:48)
[2024-03-08 16:04] LABS: CORONAVIRUS COVID-19 NAA NEGATIVE (NEGATIVE); INFLUENZA A NAA NEGATIVE (NEGATIVE); RESPIRATORY SYNCYTIAL VIR NAA NEGATIVE (NEGATIVE)
[2024-03-08] MEDS: Albuterol/Ipratropium 3.0-0.5 MG/3 ML Neb Soln NEB SCH (17:28)
[2024-03-08 17:39] LABS: MAGNESIUM 2.1 mg/dL (1.8-2.4); TSH 0.895 uIU/mL (0.358-3.74)
[2024-03-08] MEDS: Diltiazem 25 MG/5 ML SDV IVPUSH ONE ×2 (17:41→19:38)
[2024-03-08] MEDS: methylPREDNISolone Sodium Succinate 40 MG/1 ML SDV IVPUSH SCH (17:45)
[2024-03-08 18:03] LABS: BASE EXCESS ARTERIAL 9.4 (-2-2.0); BICARBONATE,ARTERIAL 35.9 meq/L (22.0-26.0); O2 SATURATION ARTERIAL 87.8 % (96.0-97.0); PCO2 ARTERIAL 59.8 mmHg (35.0-45.0)
[2024-03-08 19:32] LABS: APPEARANCE,URINE CLEAR (Clear); BILIRUBIN,URINE NEGATIVE (Negative); COLOR,URINE YELLOW (Yellow); GLUCOSE,URINE 3+ (Negative); KETONES,URINE NEGATIVE (Negative); LEUKOCYTE ESTERASE,URINE NEGATIVE (Negative); NITRITE,URINE NEGATIVE (Negative); OCCULT BLOOD,URINE 1+ (Negative); PROTEIN,URINE 2+ (Negative); UROBILINOGEN,URINE 0.2 (0.2-1.0)
[2024-03-08 19:41] LABS: BACTERIA,URINE FEW /hpf (FEW); FINE GRANULAR CASTS,URINE 0-5 /lpf (0-5); HYALINE CASTS,URINE 0-5 /lpf (0-5); MUCUS,URINE NOT SEEN /hpf (FEW); RBC,URINE 0-5 /hpf (0-5); WBC,URINE 0-5 /hpf (0-5)
[2024-03-08] MEDS: Levofloxacin/Dextrose 5%-Water 750 MG in Premix Bag 1 BAG IV SCH (19:55)
[2024-03-08] MEDS: Apixaban 5 MG Tab PO SCH (20:07)
[2024-03-08] MEDS: Acetaminophen 325 MG Tab PO PRN (20:08)
[2024-03-08] MEDS: Rosuvastatin 10 MG Tab PO SCH (20:08)
[2024-03-08] MEDS: Morphine 15 MG Tab.ER PO SCH (20:08)
[2024-03-08] MEDS ORDERED: Diltiazem 120 MG Cap.CD PO SCH (21:00)
[2024-03-08] MEDS ORDERED: Gabapentin 600 MG Tab PO ONE (21:45)
[2024-03-08] MEDS: OLANZapine 5 MG Tab PO SCH (21:48)
[2024-03-08] MEDS: LORazepam 2 MG/ML SDV IVPUSH PRN (21:49)
[2024-03-08] MEDS: Gabapentin 100 MG Cap PO ONE (21:52)
[2024-03-08] MEDS: Gabapentin 600 MG Tab PO ONE (21:52)
[2024-03-08] MEDS: Diltiazem 240 MG Cap.ER PO SCH (22:20)
[2024-03-09] MEDS: Diltiazem 125 MG in Sodium Chloride 0.9% 100 ML IV SCH (00:12)
[2024-03-09] MEDS ORDERED: Amiodarone In Dextrose,Iso-Osm 200 ML IV SCH (04:10)
[2024-03-09] MEDS: Pantoprazole 40 MG Tab.CR PO SCH (05:00)
[2024-03-09 05:35] LABS: BASOPHILS PERCENT AUTO 0.2 % (0.0-1.0); HEMATOCRIT 39.5 % (37.0-47.0); HEMOGLOBIN 12.4 gm/dl (12.0-16.0); IMMATURE GRAN ABSOLUTE AUTO 0.06 K/mm3 (0.00-0.05); IMMATURE GRAN PERCENT AUTO 0.6 % (0.0-0.4); LYMPHOCYTES ABSOLUTE AUTO 0.7 K/mm3 (1.0-4.8); MEAN CORPUSCULAR HEMOGLOBIN 28.8 pg (28.0-32.0); MEAN CORPUSCULAR HGB CONC 31.4 g/dl (32.0-36.0); MEAN CORPUSCULAR VOLUME 91.6 fl (83.0-99.0); MEAN PLATELET VOLUME 10.1 fl (9.4-12.3); MONOCYTES ABSOLUTE AUTO 0.3 K/mm3 (0.0-0.8); MONOCYTES PERCENT AUTO 3.1 % (0.0-8.0); NEUTROPHILS ABSOLUTE AUTO 9.1 K/mm3 (1.8-7.7); NEUTROPHILS PERCENT AUTO 89.1 % (41.0-71.0); PLATELET COUNT,PLT 253 K/mm3 (150-400); RED BLOOD CELL COUNT 4.31 M/mm3 (4.10-5.30); WHITE BLOOD CELL COUNT,WBC 10.24 K/mm3 (3.9-11.3)
[2024-03-09 05:53] LABS: A/G RATIO 0.4 (1-2); ALANINE AMINOTRANSFERASE,ALT 32 U/L (14-59); ALBUMIN 2.2 g/dl (3.4-5.0); ALKALINE PHOSPHATASE 170 U/L (46-116); ASPARTATE AMNIOTRANSFERASE,AST 35 U/L (15-37); BILIRUBIN TOTAL 0.4 mg/dL (0.2-1.0); BLOOD UREA NITROGEN,BUN 20 mg/dL (7-18); BUN/CREATININE RATIO 22.2 (14-18); CALCIUM 9.6 mg/dL (8.5-10.1); CARBON DIOXIDE,CO2 35 mEq/L (21-32); CHLORIDE,CL 96 mEq/L (98-107); CREATININE 0.9 mg/dL (0.55-1.02); EST CRCL DRUG DOSING (CG) 50.94 mL/min; ESTIMATED GFR 69 mL/min (>60); GLUCOSE RANDOM 149 mg/dL (70-99); SODIUM,NA 140 mEq/L (136-145)
[2024-03-09 06:16] LABS: C-REACTIVE PROTEIN > 25.00 mg/dL (<0.30)
[2024-03-09] MEDS: buPROPion 150 MG Tab.SR PO SCH (08:34)
[2024-03-09] MEDS: Potassium Chloride 20 MEQ Tab.ER PO ONE (08:34)
[2024-03-09] MEDS: Furosemide 40 MG/4 ML VIAL IVPUSH ONE ×2 (08:43→15:03)
[2024-03-09] MEDS ORDERED: Non-Formulary Medication 1 Each (Gabapentin 800 MG Tablet) PO SCH (09:00)
[2024-03-09] MEDS: Albuterol/Ipratropium 3.0-0.5 MG/3 ML Neb Soln NEB SCH (13:16)
[2024-03-09] MEDS: Ondansetron 4 MG Tab.DIS PO PRN (22:31)
[2024-03-10 05:34] LABS: BASOPHILS PERCENT AUTO 0.2 % (0.0-1.0); HEMATOCRIT 39.6 % (37.0-47.0); HEMOGLOBIN 12.5 gm/dl (12.0-16.0); IMMATURE GRAN ABSOLUTE AUTO 0.18 K/mm3 (0.00-0.05); IMMATURE GRAN PERCENT AUTO 1.1 % (0.0-0.4); MEAN CORPUSCULAR HEMOGLOBIN 29.1 pg (28.0-32.0); MEAN CORPUSCULAR HGB CONC 31.6 g/dl (32.0-36.0); MEAN CORPUSCULAR VOLUME 92.3 fl (83.0-99.0); MEAN PLATELET VOLUME 10.2 fl (9.4-12.3); MONOCYTES ABSOLUTE AUTO 0.8 K/mm3 (0.0-0.8); MONOCYTES PERCENT AUTO 5.1 % (0.0-8.0); NEUTROPHILS ABSOLUTE AUTO 14.1 K/mm3 (1.8-7.7); NEUTROPHILS PERCENT AUTO 87.6 % (41.0-71.0); NRBC ABSOLUTE 0.02 (0.00-0.02); NRBC PERCENT 0.1 % (0.0-0.2); PLATELET COUNT,PLT 314 K/mm3 (150-400); RED BLOOD CELL COUNT 4.29 M/mm3 (4.10-5.30); WHITE BLOOD CELL COUNT,WBC 16.12 K/mm3 (3.9-11.3)
[2024-03-10 05:49] LABS: A/G RATIO 0.4 (1-2); ALANINE AMINOTRANSFERASE,ALT 73 U/L (14-59); ALBUMIN 2.3 g/dl (3.4-5.0); ALKALINE PHOSPHATASE 170 U/L (46-116); ANION GAP 7.9 (5-15); ASPARTATE AMNIOTRANSFERASE,AST 100 U/L (15-37); BILIRUBIN TOTAL 0.4 mg/dL (0.2-1.0); BLOOD UREA NITROGEN,BUN 28 mg/dL (7-18); CALCIUM 9.4 mg/dL (8.5-10.1); CARBON DIOXIDE,CO2 39 mEq/L (21-32); CHLORIDE,CL 94 mEq/L (98-107); EST CRCL DRUG DOSING (CG) 45.85 mL/min; ESTIMATED GFR 61 mL/min (>60); GLUCOSE RANDOM 148 mg/dL (70-99); POTASSIUM,K 3.9 mEq/L (3.5-5.1); PROTEIN TOTAL,TP 8.3 g/dl (6.4-8.2); SODIUM,NA 137 mEq/L (136-145)
[2024-03-10 05:54] LABS: C-REACTIVE PROTEIN > 25.00 mg/dL (<0.30)
[2024-03-10] MEDS: Amiodarone 200 MG Tab PO SCH (08:07)
[2024-03-10] MEDS: Metoprolol Tartrate 25 MG Tab PO SCH (08:07)
[2024-03-10] MEDS: methylPREDNISolone Sodium Succinate 40 MG/1 ML SDV IVPUSH SCH (08:09)
[2024-03-10] MEDS ORDERED: Metoprolol Succinate 50 MG Tab.ER PO SCH (09:00)
[2024-03-10] MEDS: Furosemide 40 MG/4 ML VIAL IVPUSH ONE (09:59)
[2024-03-10] MEDS: Levofloxacin/Dextrose 5%-Water 750 MG in Premix Bag 1 BAG IV SCH (12:46)
[2024-03-10] MEDS: Nystatin Topical Powder 15 GM Bottle TOP PRN (12:47)
[2024-03-10] MEDS: Metoprolol Tartrate 50 MG Tab PO SCH (12:47)
[2024-03-10] MEDS: Simethicone 80 MG Tab.Chew PO PRN (12:57)
[2024-03-10] MEDS: Docusate Sodium 100 MG Cap PO SCH (20:03)
[2024-03-11 04:47] LABS: BASOPHILS PERCENT AUTO 0.2 % (0.0-1.0); HEMATOCRIT 41.6 % (37.0-47.0); HEMOGLOBIN 13.1 gm/dl (12.0-16.0); IMMATURE GRAN ABSOLUTE AUTO 0.33 K/mm3 (0.00-0.05); IMMATURE GRAN PERCENT AUTO 1.9 % (0.0-0.4); LYMPHOCYTES ABSOLUTE AUTO 1.7 K/mm3 (1.0-4.8); LYMPHOCYTES PERCENT AUTO 9.7 % (24.0-44.0); MEAN CORPUSCULAR HEMOGLOBIN 29.1 pg (28.0-32.0); MEAN CORPUSCULAR HGB CONC 31.5 g/dl (32.0-36.0); MEAN CORPUSCULAR VOLUME 92.4 fl (83.0-99.0); MEAN PLATELET VOLUME 9.7 fl (9.4-12.3); MONOCYTES ABSOLUTE AUTO 1.2 K/mm3 (0.0-0.8); MONOCYTES PERCENT AUTO 7.1 % (0.0-8.0); NEUTROPHILS PERCENT AUTO 81.1 % (41.0-71.0); PLATELET COUNT,PLT 363 K/mm3 (150-400); WHITE BLOOD CELL COUNT,WBC 17.23 K/mm3 (3.9-11.3)
[2024-03-11 05:47] LABS: A/G RATIO 0.4 (1-2); ALBUMIN 2.3 g/dl (3.4-5.0); ANION GAP 9.5 (5-15); BILIRUBIN TOTAL 0.3 mg/dL (0.2-1.0); C-REACTIVE PROTEIN 12.24 mg/dL (<0.30); CALCIUM 9.7 mg/dL (8.5-10.1); EST CRCL DRUG DOSING (CG) 45.85 mL/min; MAGNESIUM 2.3 mg/dL (1.8-2.4); POTASSIUM,K 3.5 mEq/L (3.5-5.1); PROTEIN TOTAL,TP 7.9 g/dl (6.4-8.2)
[2024-03-11] MEDS: Potassium Chloride 20 MEQ Tab.ER PO ONE (09:47)
[2024-03-11] MEDS: Furosemide 40 MG/4 ML VIAL IVPUSH ONE (09:47)
[2024-03-12 05:37] LABS: HEMATOCRIT 43.3 % (37.0-47.0); HEMOGLOBIN 13.7 gm/dl (12.0-16.0); MEAN CORPUSCULAR HGB CONC 31.6 g/dl (32.0-36.0); MEAN CORPUSCULAR VOLUME 91.7 fl (83.0-99.0); MEAN PLATELET VOLUME 9.7 fl (9.4-12.3); PLATELET COUNT,PLT 400 K/mm3 (150-400); RED BLOOD CELL COUNT 4.72 M/mm3 (4.10-5.30); WHITE BLOOD CELL COUNT,WBC 16.93 K/mm3 (3.9-11.3)
[2024-03-12 05:51] LABS: A/G RATIO 0.4 (1-2); ALBUMIN 2.3 g/dl (3.4-5.0); BILIRUBIN TOTAL 0.3 mg/dL (0.2-1.0); BUN/CREATININE RATIO 43.8 (14-18); C-REACTIVE PROTEIN 7.31 mg/dL (<0.30); CALCIUM 9.8 mg/dL (8.5-10.1); CREATININE 0.8 mg/dL (0.55-1.02); EST CRCL DRUG DOSING (CG) 57.31 mL/min; MAGNESIUM 2.3 mg/dL (1.8-2.4); PROTEIN TOTAL,TP 7.8 g/dl (6.4-8.2)
[2024-03-12] MEDS: predniSONE 20 MG Tab PO SCH (08:07)
[2024-03-12] MEDS: Furosemide 40 MG/4 ML VIAL IVPUSH SCH (08:07)
[2024-03-12] MEDS: Metoprolol Tartrate 25 MG Tab PO SCH (13:30)
[2024-03-13 04:39] LABS: HEMATOCRIT 43.7 % (37.0-47.0); HEMOGLOBIN 13.9 gm/dl (12.0-16.0); MEAN CORPUSCULAR HGB CONC 31.8 g/dl (32.0-36.0); MEAN CORPUSCULAR VOLUME 91.2 fl (83.0-99.0); MEAN PLATELET VOLUME 9.2 fl (9.4-12.3); PLATELET COUNT,PLT 350 K/mm3 (150-400); RED BLOOD CELL COUNT 4.79 M/mm3 (4.10-5.30); WHITE BLOOD CELL COUNT,WBC 16.07 K/mm3 (3.9-11.3)
[2024-03-13 05:11] LABS: A/G RATIO 0.5 (1-2); ALBUMIN 2.3 g/dl (3.4-5.0); ANION GAP 6.3 (5-15); BILIRUBIN TOTAL 0.2 mg/dL (0.2-1.0); BUN/CREATININE RATIO 38.8 (14-18); C-REACTIVE PROTEIN 4.09 mg/dL (<0.30); CALCIUM 9.5 mg/dL (8.5-10.1); CREATININE 0.8 mg/dL (0.55-1.02); EST CRCL DRUG DOSING (CG) 57.31 mL/min; MAGNESIUM 1.9 mg/dL (1.8-2.4); POTASSIUM,K 3.3 mEq/L (3.5-5.1); PROTEIN TOTAL,TP 7.4 g/dl (6.4-8.2)
[2024-03-13] MEDS: Potassium Chloride 20 MEQ Tab.ER PO ONE (09:11)
[2024-03-13] MEDS: Torsemide 20 MG Tab PO SCH (09:11)
[2024-03-13] MEDS: tiZANidine 4 MG Tab PO SCH (09:11)
[2024-03-13] MEDS: Metoprolol Tartrate 100 MG Tab PO SCH (09:12)
[2024-03-13] MEDS: Diclofenac Sodium 1% Gel 100 GM Tube TOP PRN (13:47)
[2024-03-14 07:20] LABS: A/G RATIO 0.5 (1-2); ALBUMIN 2.5 g/dl (3.4-5.0); ANION GAP 6.7 (5-15); BILIRUBIN TOTAL 0.2 mg/dL (0.2-1.0); BUN/CREATININE RATIO 35.6 (14-18); C-REACTIVE PROTEIN 2.85 mg/dL (<0.30); CALCIUM 9.5 mg/dL (8.5-10.1); CREATININE 0.9 mg/dL (0.55-1.02); EST CRCL DRUG DOSING (CG) 50.94 mL/min; POTASSIUM,K 3.7 mEq/L (3.5-5.1); PROTEIN TOTAL,TP 7.9 g/dl (6.4-8.2)
[2024-03-14 13:09] VITALS: BP 114/65; PULSE 93
== END 2024-03-14 12:55 | disposition home or self-care (01) | DRG 871 ==
LOC: JD.ED 14:01 → JD.ICU 17:11
PROVIDERS: ADMIT Family Medicine; ATTEND Internal Medicine
PROC: 5A09357 Assistance with Respiratory Ventilation, Less than 24 Consecutive Hours, Continuous Positive Airway Pressure (ICD-10-PCS; principal; 2024-03-08)
PROC: 3E03329 Introduction of Other Anti-infective into Peripheral Vein, Percutaneous Approach (ICD-10-PCS; 2024-03-08)
PROC: 4A033R1 Measurement of Arterial Saturation, Peripheral, Percutaneous Approach (ICD-10-PCS; 2024-03-08)
PROC: 5A09357 Assistance with Respiratory Ventilation, Less than 24 Consecutive Hours, Continuous Positive Airway Pressure (ICD-10-PCS; 2024-03-09)
PROC: 5A09357 Assistance with Respiratory Ventilation, Less than 24 Consecutive Hours, Continuous Positive Airway Pressure (ICD-10-PCS; 2024-03-10)
PROC: 5A09357 Assistance with Respiratory Ventilation, Less than 24 Consecutive Hours, Continuous Positive Airway Pressure (ICD-10-PCS; 2024-03-11)
PROC: 5A09357 Assistance with Respiratory Ventilation, Less than 24 Consecutive Hours, Continuous Positive Airway Pressure (ICD-10-PCS; 2024-03-13)
PROC: 5A09357 Assistance with Respiratory Ventilation, Less than 24 Consecutive Hours, Continuous Positive Airway Pressure (ICD-10-PCS; 2024-03-14)
DX: A41.9 Sepsis, unspecified organism (principal); I50.43 Acute on chronic combined systolic (congestive) and diastolic (congestive) heart failure; J96.21 Acute and chronic respiratory failure with hypoxia; J96.22 Acute and chronic respiratory failure with hypercapnia; J15.9 Unspecified bacterial pneumonia; Z68.41 Body mass index [BMI] 40.0-44.9, adult; F03.93 Unspecified dementia, unspecified severity, with mood disturbance; F03.94 Unspecified dementia, unspecified severity, with anxiety; I48.19 Other persistent atrial fibrillation; J44.1 Chronic obstructive pulmonary disease with (acute) exacerbation; N17.9 Acute kidney failure, unspecified; I11.0 Hypertensive heart disease with heart failure; E78.00 Pure hypercholesterolemia, unspecified; K59.09 Other constipation; K21.9 Gastro-esophageal reflux disease without esophagitis; E66.9 Obesity, unspecified; F31.9 Bipolar disorder, unspecified; I49.5 Sick sinus syndrome; G47.33 Obstructive sleep apnea (adult) (pediatric); I27.20 Pulmonary hypertension, unspecified; G89.4 Chronic pain syndrome; M48.00 Spinal stenosis, site unspecified; G62.9 Polyneuropathy, unspecified; Z88.0 Allergy status to penicillin; Z88.8 Allergy status to other drugs, medicaments and biological substances; Z88.5 Allergy status to narcotic agent; Z79.899 Other long term (current) drug therapy; Z79.01 Long term (current) use of anticoagulants; Z87.81 Personal history of (healed) traumatic fracture; Z98.890 Other specified postprocedural states; Z95.0 Presence of cardiac pacemaker; Z99.81 Dependence on supplemental oxygen
CPT/HCPCS: 0241U; 36415; 36600; 51702; 71045; 71045-26; 80053; 81001; 82803; 83605; 83735; 83880; 84443; 84484; 85025; 85027; 86140; 87040; 93005; 93010; 93306; 94640; 94660; 96374; 97110-GP; 97162-GP; 97530-GP; 99283; 99285-25; A9270-GY; J0282; J0457; J1940; J1956; J2060; J2919; J3475; J3490; J7512; J7620-GY

== ENCOUNTER 2024-08-23 06:35 | Emergency (ER) | payer OTHER ==
[2024-08-23] MEDS ORDERED: Sodium Chloride 0.9% 10 ML Syringe FLUSH PRN (06:40)
[2024-08-23 06:57] LABS: BASOPHILS PERCENT AUTO 0.3 % (0.0-1.0); EOSINOPHILS ABSOLUTE AUTO 0.1 K/mm3 (0.0-0.4); EOSINOPHILS PERCENT AUTO 0.6 % (0.0-6.0); HEMOGLOBIN 14.3 gm/dl (12.0-16.0); IMMATURE GRAN ABSOLUTE AUTO 0.04 K/mm3 (0.00-0.05); IMMATURE GRAN PERCENT AUTO 0.4 % (0.0-0.4); LYMPHOCYTES ABSOLUTE AUTO 2.7 K/mm3 (1.0-4.8); LYMPHOCYTES PERCENT AUTO 28.8 % (24.0-44.0); MEAN CORPUSCULAR HEMOGLOBIN 30.2 pg (28.0-32.0); MEAN CORPUSCULAR HGB CONC 32.5 g/dl (32.0-36.0); MEAN CORPUSCULAR VOLUME 92.8 fl (83.0-99.0); MEAN PLATELET VOLUME 9.5 fl (9.4-12.3); MONOCYTES ABSOLUTE AUTO 0.8 K/mm3 (0.0-0.8); MONOCYTES PERCENT AUTO 8.1 % (0.0-8.0); NEUTROPHILS ABSOLUTE AUTO 5.8 K/mm3 (1.8-7.7); NEUTROPHILS PERCENT AUTO 61.8 % (41.0-71.0); PLATELET COUNT,PLT 240 K/mm3 (150-400); RED BLOOD CELL COUNT 4.74 M/mm3 (4.10-5.30); WHITE BLOOD CELL COUNT,WBC 9.33 K/mm3 (3.9-11.3)
[2024-08-23] MEDS: Aspirin 81 MG Tab.Chew PO ONE (07:00)
[2024-08-23 07:33] LABS: A/G RATIO 0.7 (1-2); ALBUMIN 3.2 g/dl (3.4-5.0); ANION GAP 4.2 (5-15); BILIRUBIN TOTAL 0.3 mg/dL (0.2-1.0); BUN/CREATININE RATIO 18.9 (14-18); CALCIUM 9.7 mg/dL (8.5-10.1); CREATININE 0.9 mg/dL (0.55-1.02); EST CRCL DRUG DOSING (CG) 50.94 mL/min; MAGNESIUM 1.9 mg/dL (1.8-2.4); POTASSIUM,K 3.2 mEq/L (3.5-5.1); PROTEIN TOTAL,TP 7.7 g/dl (6.4-8.2)
[2024-08-23 11:35] VITALS: BP 106/45; PULSE 65
== END 2024-08-23 11:50 | disposition home or self-care (01) ==
LOC: JD.ED 06:35
DX: R07.89 Other chest pain (principal); F41.9 Anxiety disorder, unspecified; J44.9 Chronic obstructive pulmonary disease, unspecified; I11.0 Hypertensive heart disease with heart failure; I50.9 Heart failure, unspecified; I48.91 Unspecified atrial fibrillation; E78.00 Pure hypercholesterolemia, unspecified; K21.9 Gastro-esophageal reflux disease without esophagitis; E66.9 Obesity, unspecified; Z79.899 Other long term (current) drug therapy; Z79.01 Long term (current) use of anticoagulants; Z88.0 Allergy status to penicillin; Z88.5 Allergy status to narcotic agent; Z68.41 Body mass index [BMI] 40.0-44.9, adult
CPT/HCPCS: 36415; 71045; 80053; 83690; 83735; 83880; 84484; 85025; 93005; 99285; A9270

== ENCOUNTER 2024-12-11 06:11 | Emergency (ER) | payer MEDICAID, MEDICARE, OTHER ==
[2024-12-11] MEDS: Albuterol/Ipratropium 3.0-0.5 MG/3 ML Neb Soln NEB SCH (07:00)
[2024-12-11 07:23] LABS: BASOPHILS PERCENT AUTO 0.2 % (0.0-1.0); EOSINOPHILS PERCENT AUTO 0.2 % (0.0-6.0); HEMATOCRIT 45.8 % (37.0-47.0); HEMOGLOBIN 15.1 gm/dl (12.0-16.0); IMMATURE GRAN ABSOLUTE AUTO 0.06 K/mm3 (0.00-0.05); IMMATURE GRAN PERCENT AUTO 0.3 % (0.0-0.4); LYMPHOCYTES ABSOLUTE AUTO 1.5 K/mm3 (1.0-4.8); LYMPHOCYTES PERCENT AUTO 8.3 % (24.0-44.0); MEAN CORPUSCULAR HEMOGLOBIN 30.4 pg (28.0-32.0); MEAN CORPUSCULAR VOLUME 92.2 fl (83.0-99.0); MONOCYTES PERCENT AUTO 5.4 % (0.0-8.0); NEUTROPHILS PERCENT AUTO 85.6 % (41.0-71.0); PLATELET COUNT,PLT 236 K/mm3 (150-400); RED BLOOD CELL COUNT 4.97 M/mm3 (4.10-5.30); WHITE BLOOD CELL COUNT,WBC 18.63 K/mm3 (3.9-11.3)
[2024-12-11] MEDS: methylPREDNISolone Sodium Succinate 125 MG/2 ML SDV IVPUSH ONE (07:26)
[2024-12-11] MEDS: Sodium Chloride 0.9% 500 ML IV ONE (07:26)
[2024-12-11] MEDS: Sodium Chloride 0.9% 10 ML Syringe FLUSH ONE (07:27)
[2024-12-11] MEDS: Sodium Chloride 0.9% 10 ML Syringe FLUSH PRN (07:52)
[2024-12-11] MEDS: Sodium Chloride 0.9% 100 ML IV SCH (07:52)
[2024-12-11] MEDS: Iopamidol 755 Mg/ML 100 ML Bottle IVPUSH ONE (07:52)
[2024-12-11 08:01] LABS: A/G RATIO 0.8 (1-2); ALBUMIN 3.3 g/dl (3.4-5.0); ANION GAP 10.8 (5-15); BILIRUBIN TOTAL 0.5 mg/dL (0.2-1.0); BUN/CREATININE RATIO 25.7 (14-18); CALCIUM 9.3 mg/dL (8.5-10.1); CREATININE 0.7 mg/dL (0.55-1.02); EST CRCL DRUG DOSING (CG) 59.15 mL/min; POTASSIUM,K 3.8 mEq/L (3.5-5.1); PROTEIN TOTAL,TP 7.7 g/dl (6.4-8.2)
[2024-12-11] MEDS: Azithromycin 500 MG in Sodium Chloride 0.9% 250 ML IV ONE (08:09)
[2024-12-11 08:51] LABS: CORONAVIRUS COVID-19 NAA NEGATIVE (NEGATIVE); INFLUENZA A NAA NEGATIVE (NEGATIVE); RESPIRATORY SYNCYTIAL VIR NAA NEGATIVE (NEGATIVE)
[2024-12-11 13:53] VITALS: BP 99/36; PULSE 94
== END 2024-12-11 10:50 | disposition home or self-care (01) ==
LOC: JD.ED 06:11
DX: J44.1 Chronic obstructive pulmonary disease with (acute) exacerbation (principal); R79.89 Other specified abnormal findings of blood chemistry; F41.9 Anxiety disorder, unspecified; I11.0 Hypertensive heart disease with heart failure; I50.9 Heart failure, unspecified; I48.91 Unspecified atrial fibrillation; E78.00 Pure hypercholesterolemia, unspecified; K21.9 Gastro-esophageal reflux disease without esophagitis; Z87.891 Personal history of nicotine dependence; Z88.0 Allergy status to penicillin; Z99.81 Dependence on supplemental oxygen; Z88.5 Allergy status to narcotic agent; Z88.8 Allergy status to other drugs, medicaments and biological substances; Z79.01 Long term (current) use of anticoagulants; Z79.51 Long term (current) use of inhaled steroids; Z79.899 Other long term (current) drug therapy
CPT/HCPCS: 0241U; 36415; 71045; 71275; 80053; 83880; 84484; 85025; 94640; 96361; 96365; 96375; 99285; J0456; J2919; J7030; J7050; J7620; Q9967; 93005; 93010; 99284; A9270-GY